=== PATIENT | female | born 1945 | race Caucasian/White ===

== ENCOUNTER 2016-11-24 21:53 | Inpatient (IN) | payer OTHER, MEDICARE ==
[~2016-11-24 21:53] MED LIST: DUONEB 0.5 MG/3 MG NEB ONE; DUONEB 0.5 MG/3 MG ONE
[2016-11-24] MEDS ORDERED: DUONEB 0.5 MG/3 MG NEB ONE (21:57)
[2016-11-24] MEDS ORDERED: NS 100 ML IV 200 ML IV ONE (21:58)
[2016-11-24] MEDS ORDERED: MAGNESIUM SULFATE 50% INJ ONE (21:58)
[2016-11-24] MEDS ORDERED: MORPHINE SULFATE INJ 2 MG IVP ONE (21:58)
[2016-11-24] MEDS ORDERED: MAGNESIUM SULFATE 1 GM/100 mL PREMIX 1 GM/100 ML BAG IV ONE (21:59)
--- NOTE | 2016-11-24 22:04 | DR.GENAD ---
HPI - Complaint/Symptoms Chief Complaint Doctors Comments: Patient came by EMS from another critical access hospital states they picked the patient up in respiratory distress, wheezing and they stopped her because it was closer than [place]. Patient states she has COPD has been wheezing for a while and has home oxygen at 4 liters. States she has been on the ventillator before and she does not know how long ago it was. She denies chest pain but is having SOB, wheezing and problems breating all day. EMS states they gave the patient Solumedrol 125mg and Lasix 40mg IV in route with nebulizer. Patient denies hand or feet swelling. - Nurses notes reviewed Nurses Notes Review: Yes - Source History Provided: Patient, EMS - Mode of Arrival Mode of Arrival: EMS - Timing Came on: Gradually - Duration Duration: Constant How lon Duration: Days - Location Location: diffuse wheezing and SOB - Severity Severity: Severe - Modifying Factors Worsens:: nothing Improves:: nothing PMH - PMH Past Medical History: Anxiety, Diabetes, Dyslipidemia, Hypertension Past Surgical History: Yes Surgical History: Cholecystectomy, Hysterectomy, Ortho Surgery - Social History Do you use any recreational Drugs:: No ROS - Review of Systems Constitutional: No Symptoms Reported, Weakness. negative: See HPI, Chills, Diaphoresis, Fever, Malaise, Irritable, Fatigue, Loss of Appetite, Other Eyes: No Symptoms Reported. negative: See HPI, Eye Pain, Blurred Vision, Tearing, Discharge, Photophobia, Diplopia, Other ENTM: No Symptoms Reported. negative: See HPI, Ear Pain, Ear Discharge, Pulling on Ears, Hearing Loss, Nose Pain, Nose Discharge, Epistaxis, Nose Congestion, Mouth Pain, Mouth Swelling, Loose Teeth, Drooling, Throat Pain, Throat Swelling, Ear Foreign Body Respiratoy: No Symptoms Reported, Non-Productive Cough, Short of Breath, Wheezing. negative: See HPI, Productive Cough, Moist Cough, Dry Cough, Hacking Cough, Barking Cough, Brassy Cough, Orthopnea, Stridor, Hemoptysis, Other Cardiovascular: No Symptoms Reported. negative: See HPI, Chest Pain, Edema, Palpitations, Syncope, Cyanosis, Skin Mottling, Other Gastrointestinal/Abdominal: No Symptoms Reported. negative: See HPI, Abdominal Pain, Constipation, Diarrhea, Nausea, Vomiting, Food Intolerance, Other Genitourinary: No Symptoms Reported Neurological: No Symptoms Reported, Weakness Musculoskeletal: No Symptoms Reported Integumentary: No Symptoms Reported Hematologic/Lymphatic: No Symptoms Reported Endocrine: No Symptoms Reported Psychiatric: No Symptoms Reported PE - Vital Signs Vitals: Temperature 98.7 F Pulse Rate [Left Radial] 115 Pulse Rate 147 Respiratory Rate 24 Blood Pressure [Right Arm] 96/54 Blood Pressure 147/90 O2 Sat by Pulse Oximetry 98 - General Limitations: No Limitations General Appearance: Alert, In Distress (severe distress) - Head Head Exam: Normal Inspection, Atraumatic, Normocephalic - Eyes Eye exam: Normal Appearance, PERRL, EOMI. negative: Scleral Icterus, Conjunctival Injection, Nystagmus, Miosis, Mydrasis, Periorbital Swelling, Periorbital Tenderness, Other - ENT ENT Exam: Normal Exam, Normal Oropharynx, Normal External Ear Exam, Mucous Membranes Moist, TM's Normal Bilaterally TM/Canal Exam: Bilateral Normal Nose Exam: Normal Nose Exam Mouth Exam: Normal Inspection Throat Exam: Normal Inspection - Neck Neck Exam: Normal Inspection, Full ROM, Trachea Midline. negative: Tenderness, Meningismus, Lymphadenopathy, Thyromegaly, Other - Chest Chest Inspection: Normal Inspection, Symmetric Chest Wall Rise - Respiratory Respiratory Exam: Accessory Muscle Use, Prolonged Expiratory Phase, Respiratory Distress Respiratory Exam: Bilateral Wheezing (diffuse wheezing bilaterally), Bilateral Decreased Breath Sounds, Left Rales - Cardiovascular Cardiovascular Exam: Regular Rate, Normal Rhythm, Normal Heart Sounds, Systolic Murmur - Abdominal Exam Abdominal Exam: Normal Inspection, Normal Bowel Sounds, Soft. negative: Distention, Tenderness, Guarding, Rebound, Rigidity, Dimnished Bowel Sounds, Hyperactive Bowel Sounds, Hypoactive Bowel Sounds, Organomegaly, Trauma, Incision, Ascites, Mass, Bruit, Pulsatile Mass, Hernia, Other Abdominal Tenderness: negative: RUQ, RLQ, LUQ, LLQ, Epigastrium, Suprapubic, Diffuse, Mild, Moderate, Severe, Other - Extremities Extremities Exam: Normal Inspection, Full ROM, Normal Capillary Refill. negative: Tenderness, Edema, Joint Swelling, Calf Tenderness, Other - Back Back Exam: Normal Inspection, Full ROM. negative: Tenderness, (R) CVA Tenderness, (L) CVA Tenderness, Muscle Spasm, Paraspinal Tenderness, Vertebral Tenderness, Rashes, (R) Sciatic Notch Tenderness, (L) Sciatic Notch Tendern, (R ) Straight Leg Raise, (L) Straight Leg Raise, Other - Neurologic Neurological Exam: Alert, Oriented X3, CN II-XII Intact, Reflexes Normal. negative: Normal Gait (gait not tested) - Psychiatric Psychiatric Exam: Normal Affect - Skin Skin Exam: Warm, Dry, Intact, Normal Color Course - Reevaluation 1st: Improved - Consultation Called: 00:26 Call Returned: 00:27 (Dr. Fry to admit) - Education/Counseling Education/Counseling: Patient, Family Educated On: Treatment, Diagnosis ROR - Labs Reviewed Laboratory Results Reviewed?: Yes (all labs and x-ray results reviewed and discussed with patient) Result Diagrams: 11/24/16 22:00 11/24/16 22:00 Laboratory: WBC 29.3 X10^3/uL (3.6-10.0) H* 11/24/16 22:00 RBC 4.61 X10^6/uL (3.5-5.4) 11/24/16 22:00 Hgb 12.5 g/dL (12.0-16.0) 11/24/16 22:00 Hct 40.3 % (36.0-47.0) 11/24/16 22:00 MCV 87.5 fL (80.0-100.0) 11/24/16 22:00 MCH 27.2 pg (27.0-34.0) 11/24/16 22:00 MCHC 31.1 g/dL (33.0-35.0) L 11/24/16 22:00 RDW 14.6 % (11.6-16.5) 11/24/16 22:00 Plt Count 310 X10^3/uL (150.0-450.0) 11/24/16 22:00 MPV 10.1 fL (7.4-11.0) 11/24/16 22:00 Neut % 36.2 % (42.0-75.0) L 11/24/16 22:00 Lymph % 55.8 % (21.0-51.0) H 11/24/16 22:00 [place] % 4.0 % (0.0-13.0) 11/24/16 22:00 Eos % 3.2 % (0.9-2.9) H 11/24/16 22:00 Baso % 0.8 % (0.2-1.0) 11/24/16 22:00 Neut # 10.6 x10^3/uL (2.2-4.8) H 11/24/16 22:00 Lymph # 16.4 X10^3/uL (1.3-2.9) H 11/24/16 22:00 [place] # 1.2 x10^3/uL (0.3-0.8) H 11/24/16 22:00 Eos # 0.9 x10^3/uL (0.0-0.2) H 11/24/16 22:00 Baso # 0.2 X10^3/uL (0.0-0.1) H 11/24/16 22:00 Absolute Nucleated RBC 0.0 /100WBC 11/24/16 22:00 INR Target Range - 11/24/16 22:00 INR 0.99 (0.8-1.3) 11/24/16 22:00 PTT 29.5 SECONDS (22.9-36.5) 11/24/16 22:00 PTT Comment - 11/24/16 22:00 Sodium 148 mmol/L (136-145) H 11/24/16 22:00 Corrected Sodium 153 mmol/L (136-145) H 11/24/16 22:00 Potassium 4.5 mmol/L (3.5-5.1) 11/24/16 22:00 Chloride 108 mmol/L (98-107) H 11/24/16 22:00 Carbon Dioxide 27.2 mmol/L (21-32) 11/24/16 22:00 BUN 12 mg/dL (7-18) 11/24/16 22:00 Creatinine 1.34 mg/dL (0.55-1.02) H 11/24/16 22:00 Est GFR (MDRD) Af Amer 50 (>60) L 11/24/16 22:00 Est GFR (MDRD) Non-Af 41 (>60) L 11/24/16 22:00 Glucose 298 mg/dL (65-99) H 11/24/16 22:00 Calcium 9.3 mg/dL (8.5-10.1) 11/24/16 22:00 Corrected Calcium TNP 11/24/16 22:00 Magnesium 2.3 mg/dL (1.7-2.9) 11/24/16 22:00 Total Bilirubin 0.20 mg/dL (0.2-1.0) 11/24/16 22:00 AST 24 Units/L (15-37) 11/24/16 22:00 ALT 28 Units/L (12-78) 11/24/16 22:00 Alkaline Phosphatase 97 Units/L (46-116) 11/24/16 22:00 Creatine Kinase 88 Units/L (26-192) 11/24/16 22:00 CK-MB (CK-2) 1.7 ng/mL (0-4.0) 11/24/16 22:00 CK/CKMB % Calc 1.9 % (<4) 11/24/16 22:00 Troponin I 0.06 ng/mL (0-1.5) 11/24/16 22:00 Total Protein 8.5 g/dL (6.4-8.2) H 11/24/16 22:00 Albumin 3.9 g/dL (3.4-5.0) 11/24/16 22:00 Globulin 4.6 g/dL (2.5-4.5) H 11/24/16 22:00 Albumin/Globulin Ratio 0.8 Ratio (1.1-2.1) L 11/24/16 22:00 Specimen Type Catherized urine 11/24/16 22:44 Urine Color Yellow (YELLOW) 11/24/16 22:44 Urine Appearance Clear (CLEAR) 11/24/16 22:44 Urine pH 6.5 (5.0 - 8.0) 11/24/16 22:44 Ur Specific [place] 1.015 (1.000-1.030) 11/24/16 22:44 Urine Protein 3+ (NEGATIVE) 11/24/16 22:44 Urine Glucose (UA) 2+ (NEGATIVE) 11/24/16 22:44 Urine Ketones Negative (NEGATIVE) 11/24/16 22:44 Urine Occult Blood 1+ (NEGATIVE) 11/24/16 22:44 Urine Nitrite Negative (NEGATIVE) 11/24/16 22:44 Urine Bilirubin Negative (NEGATIVE) 11/24/16 22:44 Urine Urobilinogen Normal (NORMAL) 11/24/16 22:44 Ur Leukocyte Esterase Negative (NEGATIVE) 11/24/16 22:44 Urine RBC 0-3 /HPF (NEGATIVE) 11/24/16 22:44 Urine WBC 0-3 /HPF (NEGATIVE) 11/24/16 22:44 Ur Squamous Epith Cells Rare /HPF (NEGATIVE) 11/24/16 22:44 Urine Bacteria Negative /HPF (NEGATIVE) 11/24/16 22:44 Ur Culture Indicated? No/not indicated 11/24/16 22:44 - XRAY XRAY Interpreted by: Radiologist (CXR: May be congestive heart failure. Coarse interstitial and vasacular markings bilaterally, left greater than right may also be pneumonia) - Diagnosis Discharge Problem: Acute respiratory failure, Acute exacerbation of chronic obstructive pulmonary disease (COPD), Chronic kidney disease, stage 3, Diabetes mellitus type II, uncontrolled, Congestive heart failure, Problable pneumonia - Discharge Plan Disposition: 09 ADMITTED INPATIENT Condition: Stable - Follow ups/Referrals Follow ups/Referrals: CHANDANA PATEL [Primary Care Provider] - 3 days - Instructions
[2016-11-24] MEDS: MAGNESIUM SULFATE 1 GM/100 mL PREMIX 1 GM/100 ML BAG IV SCH ×2 (22:08→23:13)
[2016-11-24 22:30] LABS: BASOPHILS # (AUTO) 0.2 X10^3/uL (0.0-0.1); BASOPHILS % (AUTO) 0.8 % (0.2-1.0); EOSINOPHILS # (AUTO) 0.9 x10^3/uL (0.0-0.2); EOSINOPHILS % (AUTO) 3.2 % (0.9-2.9); HEMATOCRIT 40.3 % (36.0-47.0); HEMOGLOBIN 12.5 g/dL (12.0-16.0); LYMPHOCYTES # (AUTO) 16.4 X10^3/uL (1.3-2.9); LYMPHOCYTES % (AUTO) 55.8 % (21.0-51.0); MEAN CORPUSCULAR HEMOGLOBIN 27.2 pg (27.0-34.0); MEAN CORPUSCULAR HGB CONC 31.1 g/dL (33.0-35.0); MEAN CORPUSCULAR VOLUME 87.5 fL (80.0-100.0); MEAN PLATELET VOLUME 10.1 fL (7.4-11.0); MONOCYTES # (AUTO) 1.2 x10^3/uL (0.3-0.8); NEUTROPHILS # (AUTO) 10.6 x10^3/uL (2.2-4.8); NEUTROPHILS % (AUTO) 36.2 % (42.0-75.0); PLATELET COUNT 310 X10^3/uL (150.0-450.0); RED BLOOD COUNT 4.61 X10^6/uL (3.5-5.4); RED CELL DISTRIBUTION WIDTH 14.6 % (11.6-16.5)
[2016-11-24 22:41] LABS: BLOOD UREA NITROGEN 12 mg/dL (7-18); CALCIUM 9.3 mg/dL (8.5-10.1); CARBON DIOXIDE 27.2 mmol/L (21-32); CHLORIDE 108 mmol/L (98-107); COR NA(FOR HYPERGLY) 153 mmol/L (136-145); CREATININE 1.34 mg/dL (0.55-1.02); GLUCOSE 298 mg/dL (65-99); SODIUM 148 mmol/L (136-145); TROPONIN I 0.06 ng/mL (0-1.5); eGFR BLACK RACES 50 (>60); eGFR NON BLACK RACES 41 (>60)
[2016-11-24 22:42] LABS: WHITE BLOOD COUNT 29.3 X10^3/uL (3.6-10.0)
[2016-11-24 22:45] LABS: ALANINE AMINOTRANSFERASE 28 Units/L (12-78); ALBUMIN 3.9 g/dL (3.4-5.0); ALKALINE PHOSPHATASE 97 Units/L (46-116); ASPARTATE AMINO TRANSFERASE 24 Units/L (15-37); CKMB % 1.9 % (<4); CREATINE KINASE 88 Units/L (26-192); CREATINE KINASE MB 1.7 ng/mL (0-4.0); MAGNESIUM 2.3 mg/dL (1.7-2.9); TOTAL PROTEIN 8.5 g/dL (6.4-8.2)
--- NOTE | 2016-11-24 22:57 | RAD ---
EXAM: Chest X-ray INDICATION: Shortness of breath COMPARISION: No prior TECHNIQUE: Single view FINDINGS: The heart is normal enlarged and there is central vascular congestion. The interstitial markings are prominent bilaterally, left greater than right. No pneumothorax or pleural effusion. The regional s [place] is intact. IMPRESSION: Findings may be secondary to congestive heart failure. The coarse interstitial and vascular markings noted bilaterally, left greater than right may also be secondary to pneumonia. Correlate with clini effie findings. Reported By:
[2016-11-24] MEDS ORDERED: ROCEPHIN VIAL 1 GM ONE (23:08)
[2016-11-24] MEDS ORDERED: NS 100 ML IV + SPIKE MINIBAG* 100 ML IV ONE (23:09)
[2016-11-24 23:24] LABS: BILIRUBIN,URINE NEGATIVE (NEGATIVE); BLOOD/HEMOGLOBIN,URINE 1+ (NEGATIVE); GLUCOSE, URINE 2+ (NEGATIVE); KETONES,URINE NEGATIVE (NEGATIVE); LEUKOCYTE ESTERASE ,URINE NEGATIVE (NEGATIVE); NITRITES,URINE NEGATIVE (NEGATIVE); PH,URINE 6.5 (5.0 - 8.0); PROTEIN,URINE 3+ (NEGATIVE); UROBILINOGEN,URINE NORMAL (NORMAL)
[2016-11-24] MEDS ORDERED: LEVAQUIN PREMIX IV 750 MG 750 MG/150 ML BAG IV SCH (23:45)
[2016-11-24] MEDS ORDERED: ROCEPHIN VIAL 1 GM 1 GM in NS 50 ML IV + SPIKE MINIBAG* 50 ML IV SCH (23:45)
[2016-11-24 23:56] LABS: APPEARANCE,URINE CLEAR (CLEAR); BACTERIA,URINE NEGATIVE /HPF (NEGATIVE); COLOR,URINE YELLOW (YELLOW); RBC,URINE 0-3 /HPF (NEGATIVE); SQUAMOUS EPITHELIAL CELL,UR RARE /HPF (NEGATIVE)
[2016-11-25] MEDS: DUONEB 0.5 MG/3 MG NEB SCH ×6 (00:05→21:06)
[2016-11-25] MEDS ORDERED: LEVAQUIN PREMIX IV 500 MG 500 MG/100 ML BAG IV SCH (01:00)
[2016-11-25 02:21] LABS: ABG BASE EXCESS 2.3 mmol/L (-2.0-2.0); ABG HCO3 27.8 mmol/L (22-26)
[2016-11-25 02:52] VITALS: BMI 27.3
[2016-11-25] MEDS: HumuLIN R SC PRN ×4 (06:04→20:58)
[2016-11-25] MEDS: SOLU-Medrol 40 MG VIAL IVP SCH ×3 (06:53→21:00)
[2016-11-25 08:25] LABS: BASOPHILS # (AUTO) 0.1 X10^3/uL (0.0-0.1); BASOPHILS % (AUTO) 0.4 % (0.2-1.0); HEMATOCRIT 36.5 % (36.0-47.0); HEMOGLOBIN 11.7 g/dL (12.0-16.0); LYMPHOCYTES # (AUTO) 2.2 X10^3/uL (1.3-2.9); LYMPHOCYTES % (AUTO) 11.5 % (21.0-51.0); MEAN CORPUSCULAR HEMOGLOBIN 27.3 pg (27.0-34.0); MEAN CORPUSCULAR HGB CONC 32.1 g/dL (33.0-35.0); MEAN PLATELET VOLUME 9.5 fL (7.4-11.0); MONOCYTES # (AUTO) 0.4 x10^3/uL (0.3-0.8); MONOCYTES % (AUTO) 2.1 % (0.0-13.0); NEUTROPHILS # (AUTO) 16.4 x10^3/uL (2.2-4.8); PLATELET COUNT 186 X10^3/uL (150.0-450.0); RED BLOOD COUNT 4.29 X10^6/uL (3.5-5.4); RED CELL DISTRIBUTION WIDTH 15.1 % (11.6-16.5); WHITE BLOOD COUNT 19.1 X10^3/uL (3.6-10.0)
[2016-11-25] MEDS: ROCEPHIN VIAL 1 GM 1 GM in NS 50 ML IV + SPIKE MINIBAG* 50 ML IV SCH (08:54)
[2016-11-25 08:56] LABS: ALANINE AMINOTRANSFERASE 32 Units/L (12-78); ALBUMIN 3.8 g/dL (3.4-5.0); ALKALINE PHOSPHATASE 58 Units/L (46-116); ASPARTATE AMINO TRANSFERASE 32 Units/L (15-37); BLOOD UREA NITROGEN 18 mg/dL (7-18); CALCIUM 9.4 mg/dL (8.5-10.1); CARBON DIOXIDE 28.9 mmol/L (21-32); CHLORIDE 105 mmol/L (98-107); COR NA(FOR HYPERGLY) 146 mmol/L (136-145); GLUCOSE 191 mg/dL (65-99); SODIUM 144 mmol/L (136-145); eGFR BLACK RACES 57 (>60); eGFR NON BLACK RACES 47 (>60)
[2016-11-25] MEDS: NS 500 ML IV 500 ML IV SCH (08:59)
--- NOTE | 2016-11-25 10:10 | RAD ---
HISTORY: COPD Study: One view chest obtained 8:28 a.m. Comparison: 567 the Findings: The trachea is midline . There is no widening or shift of mediastinum. Cardiac pacer noted overlying the left axilla leads overlie the right atrium right ventricle. The cardiac silhouette appears with in normal limits. The costophrenic angles are sharp and both diaphragms are adequately maintained. T he lungs are adequately aerated. Osseous structures are within normal limits for the patient's age t he left lower lobe infiltrate is slowly resolving. IMPRESSION: 1. Heart normal size slowly resolving left lower lobe infiltrate when compared to previous study. Reported By:
[2016-11-25] MEDS: LOVENOX INJ 30 MG SYR SC SCH (10:51)
[2016-11-25] MEDS: COREG TAB 12.5 MG PO SCH ×2 (10:52→20:57)
[2016-11-25] MEDS: GLUCOPHAGE XR PO SCH ×2 (10:52→20:57)
[2016-11-25] MEDS: ZESTRIL TAB 10 MG PO SCH (10:52)
[2016-11-25] MEDS: NEURONTIN CAP 300 MG PO SCH ×3 (10:52→21:00)
[2016-11-25] MEDS: PAXIL PO SCH (10:52)
[2016-11-25] MEDS: ALDACTONE TAB 25 MG PO SCH (10:52)
[2016-11-25] MEDS ORDERED: SYMBICORT INH 160/4.5 mcg IN SCH (13:00)
--- NOTE | 2016-11-25 16:34 | DR.H&P ---
H&P - History & Physical for Day of: H&P Date: 11/25/16 - Chief Complaint Chief Complaint: RESPIRATORY DISTRESS, WHEEZING - Allergies Allergies/Adverse Reactions: Allergies Allergy/AdvReac Type Severity Reaction Status Date / Time No Known Drug Allergy Allergy Verified 04/12/13 08:36 - History of Present Illness History of Present Illness: THIS IS A 71 YEAR OLD FEMALE, WHO IS A PATIENT OF DR. CHANDANA PATEL, [place], [place]. SHE PRESENTS TO OUR EMERGENCY ROOM, VIA EMS, WITH COMPLAINTS OF COUGH, SHORTNESS OF BREATH, DIFFICULTY BREATHING, AND WHEEZING. PATIENT REPORTS A HISTORY OF COPD. PATIENT HAS HOME OXYGEN AT 4 LITERS AND HAS BEEN ON THE VENTILATOR BEFORE. SHE DENIES CHEST PAIN. SHE REPORTS SYMPTOMS HAVE BEEN WORSENING ALL DAY. PATIENT RECEIVED SOLUMEDROL AND LASIX PER EMS ALONG WITH NEB TREATMENT. ON ARRIVAL TO ER, PATIENT IS NOTED WITH RESPIRATORY DISTRESS WITH ACCESSORY MUSCLE USE AND PROLONGED EXPIRATORY PHASE. O2 SATURATION ON ARRIVAL WAS 79%. ON AUSCULTATION, LUNGS NOTED WITH BILATERAL WHEEZING THROUGHOUT, WITH RALES ON THE LEFT SIDE ALSO. LABS AND XRAY OBTAINED. CBC WNL EXCEPT: WBC 29.3. CMP WNL EXCEPT: SODIUM 148, CHL 108, CREAT 1.34, GFR 41, GLUCOSE 298, TOT PROTEIN 8.5. CHEST XRAY REPORTS: CENTRAL VASCULAR CONGESTION; COARSE INTERSTITIAL AND VASCULAR MARKINGS NOTED BILATERALLY , LEFT GREATER THAN RIGHT MAY ALSO BE SECONDARY TO PNEUMONIA. EKG: SINUS TACHYCARDIA, RATE 144. ABG ABNORMALS: PCO2 46.0, PO2 66.0, HCO3 27.8, FIO2 50.0. WE WILL ADMIT PATIENT TO ICU FOR FURTHER TREATMENT AND EVALUATION. PATIENT WILL BE STARTED ON DUONEBS, SOLUMEDROL, AND IV LEVAQUIN. WE WILL CONTINUE TO MONITOR AND FOLLOW UP IN AM WITH LABS AND CHEST XRAY. - Past Medical History Past Medical History: Anxiety, CHF, COPD, Depression, Diabetes, Dyslipidemia, Hypertension Additional Medical History: Vision Deficit, Chronic Sinusitis, Bronchitis, Pneumonia, Esophageal Disorders, Gallbladder Disease, Diverticulosis, Urinary Tract Infections, Skin Cancer - Past Surgical History Surgical History: Cholecystectomy, Hysterectomy, Ortho Surgery, Other Additional Surgical History: Cataracts, Pacemaker/Defibrillator, EGD with Mackey Dilatation, Hemmorrhoidectomy - Family History Family Medical History: [place], Hypertension - Social History Does patient currently use any type of tobacco product: No Have you used tobacco products in the last 12 months: No Type of Tobacco Use: None Does any household member use tobacco: No Alcohol Use: None Drug Use: None - Medications Home Medications: Albuterol Neb 2.5MG/ 3Ml [ALBUTEROL NEB 2.5MG/ 3ML *] 1 ea IN TID 04/12/13 Alprazolam [XANAX 0.5 MG *] 0.5 mg PO HS 04/12/13 Carvedilol [COREG TAB 12.5 MG *] 12.5 mg PO BID 04/12/13 Lisinopril [ZESTRIL *] 10 mg PO DAILY 04/12/13 Paroxetine HCl [PAXIL 20 MG (generic) *] 20 mg PO DAILY 04/12/13 Simvastatin [ZOCOR 40 MG *] 40 mg PO HS 04/12/13 Spironolactone [ALDACTONE 25 MG *] 25 mg PO DAILY 04/12/13 Gabapentin 1 cap PO TID 11/24/16 Melatonin 3 mg PO HS 11/24/16 Metformin HCl [Glucophage ER 500mg Tab] 1 tab PO BID 11/24/16 Montelukast Sodium 1 tab PO HS 11/24/16 Sennosides-Docusate Sodium [Senna/Docusate Sodium 8.6-50 mg] 1 tab PO HS 11/24 Budesonide-Formoterol [SYMBICORT INH 160-4.5 mcg (10.2 g) *] 2 puff INH BID Tiotropium [place] Monohydrate [SPIRIVA HANDIHALER (30 DOSE) *] 2 puff INH DAILY 11/25/16 - Review of Systems Constitutional: Weakness, Malaise Eyes: No Symptoms Reported. denies: Pain, Vision Change, Conjunctivae Inflammation, Eyelid Inflammation, Redness ENT: No Symptoms Reported. denies: Ear Pain, Nose Pain, Nose Discharge, Nose Congestion, Mouth Swelling, Throat Pain, Throat Swelling Respiratory: Cough, Shortness of Breath, SOB with Excertion, Sputum, Wheezing. denies: Hemoptysis, Pleuritic Pain Cardiovascular: No Symptoms Reported. denies: Chest Pain, Palpitations, Orthopnea, Paroxysmal Noc. Dyspnea, Edema, Light Headedness Gastrointestinal: No Symptoms Reported. denies: Nausea, Vomiting, Abdominal Pain, Diarrhea, Constipation, Hematochezia Genitourinary: No Symptoms Reported. denies: Dysuria, Incontinence, Hematuria, Retention Musculoskeletal: No Symptoms Reported. denies: Shoulder Pain, Arm Pain, Back Pain, Hand Pain, Leg Pain, Foot Pain, Neck Pain Skin: No Symptoms Reported. denies: Rash, Lesions, Bruising, Wound, Ecchymosis Neurological: No Symptoms Reported. denies: Weakness, Numbness, Incoordination , Confusion, Seizures - Physical Exam Vital Signs: Temperature 98.1 F Pulse Rate [Left Radial] 84 Pulse Rate 94 Respiratory Rate 25 Blood Pressure [Right Arm] 145/80 O2 Sat by Pulse Oximetry 96 Oriented: Normal, Time, Person, Place Eyes: Normal. negative: Diplopia, Discharge, Redness, Photophobia Ear: Normal. negative: Swelling, Laceration Nose: Normal. negative: Injected, Discharge, Blood Throat: Red, Dry. negative: Tonsillar Hypertrophy, Exudate Respiratory: Wheezes Throughout, ELLA Rales, LLL Rales Cardiovascular: Normal. negative: Murmur, Edema : Normal. negative: Dysuria, Hematuria, Frequency, Discharge, Bleeding, Auscultation: Bowel Sounds: Normal. negative: Bruit Palpation: Normal. negative: Spleen Enlarged, Liver Enlarged, Mass Pulsatile Tenderness: Normal. negative: Rebound, Guarding, Rigidity Skin: Decreased [place]. negative: Diaphoresis, Wound, Bruising, Ecchymosis Musculoskeletal: Normal Psychiatric: Anxiety Mood Description: Anxious Affect: Anxious Speech Pattern: Clear, Appropriate - Assessment/Plan (1) Acute exacerbation of chronic obstructive pulmonary disease (COPD) Status: Acute Plan: ADMIT PATIENT, START SOLUMEDROL, IV LEVAQUIN, DUONEBS, SUPPLEMENTAL OXGYEN , MONITOR ON CONTINUOUS PULSE OXIMETRY AND TELEMETRY, LABS AND CHEST XRAY IN AM. (2) Acute respiratory failure Qualifiers: Respiratory failure complication: hypoxia and hypercapnia Qualified Code(s) : J96.01 - Acute respiratory failure with hypoxia; J96.02 - Acute respiratory failure with hypercapnia Status: Acute Plan: ABOVE. (3) Chronic kidney disease, stage 3 Status: Chronic (4) Congestive heart failure Qualifiers: Congestive heart failure type: C Congestive heart failure chronicity: C Status: Chronic (5) Diabetes mellitus type II, uncontrolled Qualifiers: Diabetes mellitus complication status: without complication Diabetes mellitus complication detail: D Diabetic retinopathy severity: D Proliferative retinopathy type: P Diabetes mellitus macular edema: D Diabetes mellitus mcc insulin use: without termite control technician use Laterality: L Chronic kidney disease stage: C Qualified Code(s): E11.65 - Type 2 diabetes mellitus with hyperglycemia Status: Chronic
[2016-11-25] MEDS: PROTONIX INJ 40 MG VIAL IVP SCH (18:13)
[2016-11-25 19:25] LABS: CKMB % 2.9 % (<4); CREATINE KINASE MB 10.8 ng/mL (0-4.0)
[2016-11-25 19:28] LABS: TROPONIN I 0.4 ng/mL (0-1.5)
[2016-11-25] MEDS: ZOCOR TAB 40 MG PO SCH (20:57)
[2016-11-25] MEDS: SINGULAIR TAB 10 MG PO SCH (20:57)
[2016-11-25] MEDS: COLACE CAP 100 MG PO SCH (20:57)
[2016-11-25] MEDS: XANAX PO SCH (20:57)
[2016-11-25] MEDS: SENOKOT PO SCH (20:57)
[2016-11-25] MEDS: PATIENT'S HOME MEDICATION RESPIRATORY (Melatonin [Melatonin] 3 MG) PO SCH (20:59)
[2016-11-25] MEDS ORDERED: [UNRECOGNIZED DRUG - OTHER] PO SCH (21:00)
[2016-11-25] MEDS: PEPCID 20 MG IV PREMIX* 20 MG/50 ML BAG IV SCH (21:00)
[2016-11-25] MEDS: PULMICORT NEB TX 0.5 MG NEB SCH (21:06)
[2016-11-25 21:33] LABS: TROPONIN I 0.43 ng/mL (0-1.5)
[2016-11-25 21:40] LABS: CREATINE KINASE MB 10.9 ng/mL (0-4.0)
[2016-11-26] MEDS: DUONEB 0.5 MG/3 MG NEB SCH ×6 (01:03→21:47)
[2016-11-26 01:44] LABS: CKMB % 2.6 % (<4); TROPONIN I 0.38 ng/mL (0-1.5)
[2016-11-26 01:45] LABS: CREATINE KINASE MB 8.3 ng/mL (0-4.0)
[2016-11-26 04:47] LABS: ALANINE AMINOTRANSFERASE 33 Units/L (12-78); ALBUMIN 3.6 g/dL (3.4-5.0); ALKALINE PHOSPHATASE 49 Units/L (46-116); ASPARTATE AMINO TRANSFERASE 38 Units/L (15-37); BLOOD UREA NITROGEN 21 mg/dL (7-18); CALCIUM 9.2 mg/dL (8.5-10.1); CARBON DIOXIDE 27.8 mmol/L (21-32); CHLORIDE 106 mmol/L (98-107); COR NA(FOR HYPERGLY) 144 mmol/L (136-145); CREATININE 0.92 mg/dL (0.55-1.02); GLUCOSE 186 mg/dL (65-99); SODIUM 142 mmol/L (136-145); TOTAL PROTEIN 7.5 g/dL (6.4-8.2); eGFR BLACK RACES > 60 (>60); eGFR NON BLACK RACES > 60 (>60)
[2016-11-26 04:57] LABS: BASOPHILS # (AUTO) 0.1 X10^3/uL (0.0-0.1); BASOPHILS % (AUTO) 0.2 % (0.2-1.0); EOSINOPHILS # (AUTO) 0.1 x10^3/uL (0.0-0.2); EOSINOPHILS % (AUTO) 0.2 % (0.9-2.9); HEMATOCRIT 34.5 % (36.0-47.0); LYMPHOCYTES # (AUTO) 3.4 X10^3/uL (1.3-2.9); LYMPHOCYTES % (AUTO) 12.6 % (21.0-51.0); MEAN CORPUSCULAR HEMOGLOBIN 27.4 pg (27.0-34.0); MEAN CORPUSCULAR HGB CONC 31.8 g/dL (33.0-35.0); MEAN PLATELET VOLUME 10.6 fL (7.4-11.0); MONOCYTES % (AUTO) 3.7 % (0.0-13.0); NEUTROPHILS # (AUTO) 22.5 x10^3/uL (2.2-4.8); NEUTROPHILS % (AUTO) 83.3 % (42.0-75.0); PLATELET COUNT 236 X10^3/uL (150.0-450.0); RED BLOOD COUNT 4.01 X10^6/uL (3.5-5.4); RED CELL DISTRIBUTION WIDTH 14.7 % (11.6-16.5)
[2016-11-26] MEDS: SOLU-Medrol 40 MG VIAL IVP SCH ×3 (05:07→21:08)
[2016-11-26] MEDS: NEURONTIN CAP 300 MG PO SCH ×3 (05:07→21:04)
[2016-11-26] MEDS: HumuLIN R SC PRN ×3 (05:07→16:23)
[2016-11-26 05:43] LABS: BAND NEUTROPHILS % 8 % (0-10)
[2016-11-26 05:44] LABS: PLATELET MORPHOLOGY COMMENT NORMAL (NORMAL)
--- NOTE | 2016-11-26 07:16 | RAD ---
HISTORY: Respiratory distress Study: Chest one view Comparison: November 25, 2016, November 24, 2016, April 12, 2013 Findings: There is a pacemaker present on the left. The heart is within normal limits in size. The tracy are no rmal. The aorta is calcified. The lungs are mildly hyperinflated but free of acute alveolar infiltra julien. Now visualized in the right lung base is a 7.4 millimeter nodule for which further evaluation w ith chest CT is recommended. The remainder of the lung horan are clear. The bony thorax is unremark able. IMPRESSION: Lungs free of acute infiltrates Now visualized in the right lung base is a 7.4 millimeter nodule for which further evaluation with c hest CT is recommended. Reported By:
[2016-11-26] MEDS: PEPCID 20 MG IV PREMIX* 20 MG/50 ML BAG IV SCH ×2 (08:05→21:04)
[2016-11-26] MEDS: LOVENOX INJ 30 MG SYR SC SCH (08:26)
[2016-11-26] MEDS: PROTONIX INJ 40 MG VIAL IVP SCH (08:26)
[2016-11-26] MEDS: ZESTRIL TAB 10 MG PO SCH (08:27)
[2016-11-26] MEDS: GLUCOPHAGE XR PO SCH (08:27)
[2016-11-26] MEDS: PAXIL PO SCH (08:27)
[2016-11-26] MEDS: COREG TAB 12.5 MG PO SCH ×2 (08:27→21:04)
[2016-11-26] MEDS: ALDACTONE TAB 25 MG PO SCH (08:28)
[2016-11-26] MEDS ORDERED: ROCEPHIN VIAL 1 GM ONE (08:33)
[2016-11-26] MEDS ORDERED: NS 50 ML IV 50 ML IV ONE (08:37)
[2016-11-26] MEDS: ROCEPHIN VIAL 1 GM 1 GM in NS 50 ML IV + SPIKE MINIBAG* 50 ML IV SCH (08:43)
[2016-11-26] MEDS: LEVAQUIN PREMIX IV 500 MG 500 MG/100 ML BAG IV SCH (09:25)
[2016-11-26] MEDS: NS 500 ML IV 500 ML IV SCH (09:26)
[2016-11-26] MEDS: PULMICORT NEB TX 0.5 MG NEB SCH ×2 (10:06→21:47)
[2016-11-26] MEDS ORDERED: NS 100 ML IV 100 ML IV ONE (11:36)
--- NOTE | 2016-11-26 13:19 | PCM.PROG ---
Progress Note - Progress Note for Day of Date: 11/26/16 - Subjective Subjective: PATIENT IS SITTING UP IN CHAIR ON MORNING ROUNDS. PATIENT REPORTS FEELING SHORT OF BREATH AND FATIGUED. OXYGEN SATURATIONS 97% ON SUPPLEMENTAL OXYGEN. ON AUSCULTATION, WHEEZING NOTED. CHEST XRAY FROM THIS MORNING REPORTS THAT LUNGS ARE CLEAR AND A 7.4 MM NODULE IS NOTED IN THE RIGHT LUNG BASE WITH RECOMMENDATIONS FOR A CHEST CT. CBC WNL EXCEPT WBC 29.0, HGB/HCT 11.0/34.5. CMP WNL EXCEPT BUN 21, GLUCOSE 186, AST 38. CARDIAC ENZYMES REPORT CREATINE KINASE 316, CK-MB 8.3. PATIENT DENIES CHEST PAIN. WE WILL FOLLOW UP ON LABS IN THE MORNING AND A CHEST CT. - Past Medical Family Social History Past Med/Fam/Surg Hx: No changes since H&P Allergies: Allergies No Known Drug Allergy Allergy (Verified 04/12/13 08:36) - Review of Systems ROS: No change since H&P - Vital Signs and I&O's Vital Signs: Temperature 98.0 F Pulse Rate [Left Radial] 80 Pulse Rate 77 Respiratory Rate 22 Blood Pressure [Right Arm] 134/61 O2 Sat by Pulse Oximetry 95 Intake and Output: Intake & Output 11/24/16 11/25/16 11/26/16 11/27/16 11:59 11:59 11:59 11:59 Intake Total 340 1477 Output Total 550 2500 Balance -210 -1023 - Physical Exam Oriented: Normal, Time, Person, Place Eyes: Normal. negative: Diplopia, Discharge, Redness, Photophobia Ear: Normal. negative: Swelling, Laceration Nose: Normal. negative: Injected, Discharge, Blood Throat: Red, Dry. negative: Tonsillar Hypertrophy, Exudate Cardiovascular: Normal. negative: Murmur, Edema : Normal. negative: Dysuria, Hematuria, Frequency, Discharge, Bleeding, Auscultation: Bowel Sounds: Normal. negative: Bruit Tenderness: Normal. negative: Rebound, Guarding, Rigidity Skin: Decreased Turgur. negative: Diaphoresis, Wound, Bruising, Ecchymosis Musculoskeletal: Normal Psychiatric: Anxiety Mood Description: Anxious Affect: Anxious Speech Pattern: Clear, Appropriate - Laboratory and Diagnostics Result Diagrams: 11/26/16 03:48 11/26/16 03:48 Labs: 11/25/16 00:20 Sputum - Expectorated Sputum Sputum Culture - Preliminary 11/25/16 00:20 Sputum - Expectorated Sputum - Final Laboratory WBC 29.0 X10^3/uL (3.6-10.0) H* 11/26/16 03:48 RBC 4.01 X10^6/uL (3.5-5.4) 11/26/16 03:48 Hgb 11.0 g/dL (12.0-16.0) L 11/26/16 03:48 Hct 34.5 % (36.0-47.0) L 11/26/16 03:48 MCV 86.0 fL (80.0-100.0) 11/26/16 03:48 MCH 27.4 pg (27.0-34.0) 11/26/16 03:48 MCHC 31.8 g/dL (33.0-35.0) L 11/26/16 03:48 RDW 14.7 % (11.6-16.5) 11/26/16 03:48 Plt Count 236 X10^3/uL (150.0-450.0) 11/26/16 03:48 Plt Count Comment Adequate (ADEQUATE) 11/26/16 03:48 MPV 10.6 fL (7.4-11.0) 11/26/16 03:48 Neut % 83.3 % (42.0-75.0) H 11/26/16 03:48 Lymph % 12.6 % (21.0-51.0) L 11/26/16 03:48 Terrell % 3.7 % (0.0-13.0) 11/26/16 03:48 Eos % 0.2 % (0.9-2.9) L 11/26/16 03:48 Baso % 0.2 % (0.2-1.0) 11/26/16 03:48 Neut # 22.5 x10^3/uL (2.2-4.8) H 11/26/16 03:48 Lymph # 3.4 X10^3/uL (1.3-2.9) H 11/26/16 03:48 Terrell # 1.0 x10^3/uL (0.3-0.8) H 11/26/16 03:48 Eos # 0.1 x10^3/uL (0.0-0.2) 11/26/16 03:48 Baso # 0.1 X10^3/uL (0.0-0.1) 11/26/16 03:48 Absolute Nucleated RBC 0.3 /100WBC 11/26/16 03:48 Total Counted 100 11/26/16 03:48 Neutrophils % (Manual) 74 % (39-76) 11/26/16 03:48 Band Neutrophils % 8 % (0-10) 11/26/16 03:48 Lymphocytes % (Manual) 16 % (13-43) 11/26/16 03:48 Monocytes % (Manual) 2 % (4-9) L 11/26/16 03:48 Plt Morphology Comment Normal (NORMAL) 11/26/16 03:48 RBC Morphology Normal (NORMAL) 11/26/16 03:48 INR Target Range - 11/24/16 22:00 INR 0.99 (0.8-1.3) 11/24/16 22:00 PTT 29.5 SECONDS (22.9-36.5) 11/24/16 22:00 PTT Comment - 11/24/16 22:00 Sample Site Lb 11/25/16 02:15 ABG pH 7.390 (7.35-7.45) 11/25/16 02:15 ABG pCO2 46.0 mmHg (35.0-45.0) H 11/25/16 02:15 ABG pO2 66.0 mmHg (80.0-100.0) L 11/25/16 02:15 ABG HCO3 27.8 mmol/L (22-26) H 11/25/16 02:15 ABG O2 Saturation 93.0 % (90-100) 11/25/16 02:15 ABG Base Excess 2.3 mmol/L (-2.0-2.0) H 11/25/16 02:15 [place] Test N/a 11/25/16 02:15 A-a Gradient 233.0 mmHg 11/25/16 02:15 FiO2 50.000 11/25/16 02:15 Blood Gas Comments Halina well ae 11/25/16 02:15 Sodium 142 mmol/L (136-145) 11/26/16 03:48 Corrected Sodium 144 mmol/L (136-145) 11/26/16 03:48 Potassium 4.4 mmol/L (3.5-5.1) 11/26/16 03:48 Chloride 106 mmol/L (98-107) 11/26/16 03:48 Carbon Dioxide 27.8 mmol/L (21-32) 11/26/16 03:48 BUN 21 mg/dL (7-18) H 11/26/16 03:48 Creatinine 0.92 mg/dL (0.55-1.02) 11/26/16 03:48 Est GFR (MDRD) Af Amer > 60 (>60) 11/26/16 03:48 Est GFR (MDRD) Non-Af > 60 (>60) 11/26/16 03:48 Glucose 186 mg/dL (65-99) H 11/26/16 03:48 Calcium 9.2 mg/dL (8.5-10.1) 11/26/16 03:48 Corrected Calcium TNP 11/26/16 03:48 Magnesium 2.3 mg/dL (1.7-2.9) 11/24/16 22:00 Total Bilirubin 0.20 mg/dL (0.2-1.0) 11/26/16 03:48 AST 38 Units/L (15-37) H 11/26/16 03:48 ALT 33 Units/L (12-78) 11/26/16 03:48 Alkaline Phosphatase 49 Units/L (46-116) 11/26/16 03:48 Creatine Kinase 316 Units/L (26-192) H 11/26/16 00:45 CK-MB (CK-2) 8.3 ng/mL (0-4.0) H* 11/26/16 00:45 CK/CKMB % Calc 2.6 % (<4) 11/26/16 00:45 Troponin I 0.38 ng/mL (0-1.5) 11/26/16 00:45 Total Protein 7.5 g/dL (6.4-8.2) 11/26/16 03:48 Albumin 3.6 g/dL (3.4-5.0) 11/26/16 03:48 Globulin 3.9 g/dL (2.5-4.5) 11/26/16 03:48 Albumin/Globulin Ratio 0.9 Ratio (1.1-2.1) L 11/26/16 03:48 Specimen Type Catherized urine 11/24/16 22:44 Urine Color Yellow (YELLOW) 11/24/16 22:44 Urine Appearance Clear (CLEAR) 11/24/16 22:44 Urine pH 6.5 (5.0 - 8.0) 11/24/16 22:44 Ur Specific [place] 1.015 (1.000-1.030) 11/24/16 22:44 Urine Protein 3+ (NEGATIVE) 11/24/16 22:44 Urine Glucose (UA) 2+ (NEGATIVE) 11/24/16 22:44 Urine Ketones Negative (NEGATIVE) 11/24/16 22:44 Urine Occult Blood 1+ (NEGATIVE) 11/24/16 22:44 Urine Nitrite Negative (NEGATIVE) 11/24/16 22:44 Urine Bilirubin Negative (NEGATIVE) 11/24/16 22:44 Urine Urobilinogen Normal (NORMAL) 11/24/16 22:44 Ur Leukocyte Esterase Negative (NEGATIVE) 11/24/16 22:44 Urine RBC 0-3 /HPF (NEGATIVE) 11/24/16 22:44 Urine WBC 0-3 /HPF (NEGATIVE) 11/24/16 22:44 Ur Squamous Epith Cells Rare /HPF (NEGATIVE) 11/24/16 22:44 Urine Bacteria Negative /HPF (NEGATIVE) 11/24/16 22:44 Ur Culture Indicated? No/not indicated 11/24/16 22:44 - Plan (1) Acute exacerbation of chronic obstructive pulmonary disease (COPD) Status: Acute Plan: CONTINUE SOLUMEDROL, IV LEVAQUIN, DUONEBS, SUPPLEMENTAL OXGYEN, MONITOR ON CONTINUOUS PULSE OXIMETRY AND TELEMETRY, LABS AND CHEST XRAY IN AM. (2) Acute respiratory failure Status: Acute Qualifiers: Respiratory failure complication: hypoxia and hypercapnia Qualified Code(s) : J96.01 - Acute respiratory failure with hypoxia; J96.02 - Acute respiratory failure with hypercapnia Plan: ABOVE. (3) Chronic kidney disease, stage 3 Status: Chronic (4) Congestive heart failure Status: Chronic Qualifiers: Congestive heart failure type: C Congestive heart failure chronicity: C (5) Diabetes mellitus type II, uncontrolled Status: Chronic Qualifiers: Diabetes mellitus complication status: without complication Diabetes mellitus complication detail: D Diabetic retinopathy severity: D Proliferative retinopathy type: P Diabetes mellitus macular edema: D Diabetes mellitus lead systems analyst insulin use: without lead systems analyst use Laterality: L Chronic kidney disease stage: C Qualified Code(s): E11.65 - Type 2 diabetes mellitus with hyperglycemia
--- NOTE | 2016-11-26 13:39 | CT ---
HISTORY: Lung nodule Study: CT chest with con Comparison: Plain chest x-ray same date Technique: Axial post-contrast images with coronal and sagittal reformats. Dose reduction procedures were used with MA/kv adjusted for body size. Findings: Examination of the mediastinum demonstrated no evidence for mediastinal masses, enlarged adenopathy, or hilar adenopathy. No pleural effusions are identified. No chest wall or axillary abnormality is identified. Those portions of the upper abdominal organs visualized were within normal limits. [place] of the lung horan demonstrated mild hyperinflation to be present. Best visualized on series 5 axial image 33 is an irregular 8.2 millimeter pulmonary nodule suspicious for primary lung neoplas m. This is not visible even in retrospect on the recent plain film. Visible on series 5 axial image 37 in the right upper lobe is a 5 millimeter right upper lobe pulmonary nodule also not visible on p russ film. In the right lower lobe there is a 1.2 by 7.5 centimeter nodule accounting for the nodula r density visible in the right lung base on plain film. No other definite nodules are identified. PE T-CT is recommended for evaluation of the irregular right upper lobe pulmonary nodule and a larger r ight lower lobe pulmonary nodule. There is some nonspecific ground-glass infiltrate in the left uppe r lobe and left lower lobe likely infectious or inflammatory in origin. There is a small focus of co nsolidation in the lingular segment of the left upper lobe likely also pneumonia. IMPRESSION: Irregular 8.2 millimeter pulmonary nodule in the right upper lobe suspicious for primary lung neopla sm. This is not visible on the plain film. 7.5 by 12 millimeter right lower lobe pulmonary nodule accounting for the nodule noted on the recent plain film this could be granulomatous or metastatic in origin. 5 millimeter right upper lobe pulmonary nodule which could be granulomatous or metastatic in origin. Subtle ground-glass left upper and left lower lobe infiltrates likely pneumonia Small area of consolidation in the lingula also likely pneumonia Reported By:
[2016-11-26] MEDS ORDERED: SNACK - Diabetic Appropriate PO SCH (20:00)
[2016-11-26] MEDS: COLACE CAP 100 MG PO SCH (21:03)
[2016-11-26] MEDS: SINGULAIR TAB 10 MG PO SCH (21:03)
[2016-11-26] MEDS: ZOCOR TAB 40 MG PO SCH (21:03)
[2016-11-26] MEDS: XANAX PO SCH (21:04)
[2016-11-26] MEDS: SENOKOT PO SCH (21:04)
[2016-11-26] MEDS: PATIENT'S HOME MEDICATION RESPIRATORY (Melatonin [Melatonin] 3 MG) PO SCH (21:05)
[2016-11-27] MEDS: DUONEB 0.5 MG/3 MG NEB SCH ×6 (01:10→21:54)
[2016-11-27 05:24] LABS: ALANINE AMINOTRANSFERASE 31 Units/L (12-78); ALBUMIN 3.2 g/dL (3.4-5.0); ALKALINE PHOSPHATASE 50 Units/L (46-116); ASPARTATE AMINO TRANSFERASE 24 Units/L (15-37); BLOOD UREA NITROGEN 21 mg/dL (7-18); CALCIUM 8.9 mg/dL (8.5-10.1); CARBON DIOXIDE 25.7 mmol/L (21-32); CHLORIDE 106 mmol/L (98-107); COR CA(FOR HYPOALB) 9.5 mg/dL (8.5-10.1); COR NA(FOR HYPERGLY) 144 mmol/L (136-145); CREATININE 0.96 mg/dL (0.55-1.02); GLUCOSE 208 mg/dL (65-99); SODIUM 141 mmol/L (136-145); eGFR BLACK RACES > 60 (>60); eGFR NON BLACK RACES > 60 (>60)
[2016-11-27 05:30] LABS: BASOPHILS % (AUTO) 0.2 % (0.2-1.0); HEMATOCRIT 33.1 % (36.0-47.0); HEMOGLOBIN 10.7 g/dL (12.0-16.0); LYMPHOCYTES # (AUTO) 2.2 X10^3/uL (1.3-2.9); LYMPHOCYTES % (AUTO) 9.9 % (21.0-51.0); MEAN CORPUSCULAR HEMOGLOBIN 27.3 pg (27.0-34.0); MEAN CORPUSCULAR HGB CONC 32.4 g/dL (33.0-35.0); MEAN CORPUSCULAR VOLUME 84.5 fL (80.0-100.0); MEAN PLATELET VOLUME 10.1 fL (7.4-11.0); MONOCYTES # (AUTO) 0.9 x10^3/uL (0.3-0.8); MONOCYTES % (AUTO) 3.8 % (0.0-13.0); NEUTROPHILS # (AUTO) 19.1 x10^3/uL (2.2-4.8); NEUTROPHILS % (AUTO) 86.1 % (42.0-75.0); PLATELET COUNT 217 X10^3/uL (150.0-450.0); RED BLOOD COUNT 3.92 X10^6/uL (3.5-5.4); RED CELL DISTRIBUTION WIDTH 14.4 % (11.6-16.5)
[2016-11-27 05:32] LABS: WHITE BLOOD COUNT 22.2 X10^3/uL (3.6-10.0)
[2016-11-27] MEDS: SOLU-Medrol 40 MG VIAL IVP SCH ×3 (05:34→21:31)
[2016-11-27] MEDS: NEURONTIN CAP 300 MG PO SCH ×3 (05:34→21:18)
[2016-11-27] MEDS: HumuLIN R SC PRN ×4 (06:13→21:19)
--- NOTE | 2016-11-27 06:51 | RAD ---
HISTORY: COPD, respiratory failure Study: Chest one view Comparison: November 26, 2016 plain film and chest CT Findings: There is a pacemaker present on the left. The heart is within normal limits in size. The tracy are no rmal. The aorta is calcified. The lungs are hyperinflated but free of acute alveolar infiltrates. No change right lower lobe lung nodule which was visualized on the recent chest CT. The right upper lo be irregular nodule noted on chest CT is not visible on plain film. IMPRESSION: No acute infiltrates No change right lower lobe nodule The irregular nodule identified on CT in the right upper lobe is not visible on plain film. Reported By:
[2016-11-27] MEDS: PEPCID 20 MG IV PREMIX* 20 MG/50 ML BAG IV SCH ×2 (07:59→21:19)
[2016-11-27] MEDS: PROTONIX INJ 40 MG VIAL IVP SCH (08:03)
[2016-11-27] MEDS: ZESTRIL TAB 10 MG PO SCH (08:04)
[2016-11-27] MEDS: LOVENOX INJ 30 MG SYR SC SCH (08:04)
[2016-11-27] MEDS: PAXIL PO SCH (08:05)
[2016-11-27] MEDS: ALDACTONE TAB 25 MG PO SCH (08:05)
[2016-11-27] MEDS: NS 500 ML IV 500 ML IV SCH (08:11)
[2016-11-27] MEDS: COREG TAB 12.5 MG PO SCH ×2 (08:11→21:18)
[2016-11-27] MEDS: ROCEPHIN VIAL 1 GM 1 GM in NS 50 ML IV + SPIKE MINIBAG* 50 ML IV SCH (08:35)
[2016-11-27] MEDS: PULMICORT NEB TX 0.5 MG NEB SCH ×2 (08:46→21:54)
--- NOTE | 2016-11-27 10:56 | PCM.PROG ---
Progress Note - Progress Note for Day of Date: 11/27/16 - Subjective Subjective: PATIENT TAKING BREATHING TREATMENT UPON ROUNDS. PATIENT WITH PLEASANT AFFECT AND IS NOTED WITH SHORTNESS OF BREATH ON EXERTION. OXYGEN SATURATIONS 97% ON SUPPLEMENTAL OXYGEN. SHE CONTINUES ON AGGRESSIVE NEB TREATMENTS, SUPPLEMENTAL OXYGEN, SOLUMEDROL, IV LEVAQUIN, IV ROCEPHIN FOR ACUTE RESPIRATORY FAILURE AND COPD EXACERBATION. PATIENT IS A FORMER SMOKER. A CT WAS OBTAINED YESTERDAY AND REPORTS AN IRREGULAR 8.2MM PULMONARY NODULE IN THE RIGHT UPPER LOBE SUSPICIOUS FOR PRIMARY LUNG NEOPLASM; 7.5 BY 12MM RIGHT LOWER LOBE PULMONARY NODULE COUGH BE GRANULOMATOUS OR METASTATIC IN ORIGIN; 5MM RIGHT UPPER LOBE PULMONARY NODULE WHICH COULD BE GRANULOMATOUS OR METASTATIC IN ORIGIN. WE DISCUSS REPORT WITH PATIENT AND . REPORTS SHE IS FOLLOWED BY DR. MAGAÑA, DOOR TO DOOR SALES REPRESENTATIVE AND HAS HAD CT'S OF HER CHEST IN THE PAST THAT REPORTED SCAR TISSUE. OUR PLAN IS TO HAVE PATIENT FOLLOW UP WITH DR. MAGAÑA ON DISCHARGE FOR FURTHER EVALUATION. ON AUSCULTATION, WHEEZING CONTINUES THROUGHOUT. CBC WNL EXCEPT WBC 22.2, HGB/HCT 10.7/33.1. CMP WNL EXCEPT BUN 21, GLUCOSE 208, ALBUMIN 3.2. WE WILL FOLLOW UP WITH PATIENT IN AM WITH LABS AND CHEST XRAY. PLANS ARE TO DISCHARGE IN AM, PROVIDING PATIENT IS STABLE. - Past Medical Family Social History Past Med/Fam/Surg Hx: No changes since H&P Allergies: Allergies No Known Drug Allergy Allergy (Verified 04/12/13 08:36) - Review of Systems ROS: No change since H&P - Vital Signs and I&O's Vital Signs: Temperature 97.1 F Pulse Rate [Left Radial] 91 Pulse Rate 83 Respiratory Rate 23 Blood Pressure [Right Arm] 150/74 O2 Sat by Pulse Oximetry 95 Intake and Output: Intake & Output 11/24/16 11/25/16 11/26/16 11/27/16 11:59 11:59 11:59 11:59 Intake Total 340 1477 1637 Output Total 550 2500 1100 Balance -210 1027 537 - Physical Exam Oriented: Normal, Time, Person, Place Eyes: Normal. negative: Diplopia, Discharge, Redness, Photophobia Ear: Normal. negative: Swelling, Laceration Nose: Normal. negative: Injected, Discharge, Blood Throat: Red, Dry. negative: Tonsillar Hypertrophy, Exudate Respiratory: Generalized, Wheezes Cardiovascular: Normal. negative: Murmur, Edema : Normal. negative: Dysuria, Hematuria, Frequency, Discharge, Bleeding, Auscultation: Bowel Sounds: Normal. negative: Bruit Palpation: Normal. negative: Spleen Enlarged, Liver Enlarged, Mass Pulsatile Tenderness: Normal. negative: Rebound, Guarding, Rigidity Skin: Decreased Turgur. negative: Diaphoresis, Wound, Bruising, Ecchymosis Musculoskeletal: Normal Psychiatric: Normal Mood Description: Calm, Appropriate Affect: Normal Speech Pattern: Clear, Appropriate - Laboratory and Diagnostics Result Diagrams: 11/27/16 03:40 11/27/16 03:40 Labs: 11/25/16 00:20 Sputum - Expectorated Sputum Sputum Culture - Final Kanaia Salvadori 11/25/16 00:20 Sputum - Expectorated Sputum - Final Laboratory WBC 22.2 X10^3/uL (3.6-10.0) H* 11/27/16 03:40 RBC 3.92 X10^6/uL (3.5-5.4) 11/27/16 03:40 Hgb 10.7 g/dL (12.0-16.0) L 11/27/16 03:40 Hct 33.1 % (36.0-47.0) L 11/27/16 03:40 MCV 84.5 fL (80.0-100.0) 11/27/16 03:40 MCH 27.3 pg (27.0-34.0) 11/27/16 03:40 MCHC 32.4 g/dL (33.0-35.0) L 11/27/16 03:40 RDW 14.4 % (11.6-16.5) 11/27/16 03:40 Plt Count 217 X10^3/uL (150.0-450.0) 11/27/16 03:40 Plt Count Comment Adequate (ADEQUATE) 11/26/16 03:48 MPV 10.1 fL (7.4-11.0) 11/27/16 03:40 Neut % 86.1 % (42.0-75.0) H 11/27/16 03:40 Lymph % 9.9 % (21.0-51.0) L 11/27/16 03:40 Jerome % 3.8 % (0.0-13.0) 11/27/16 03:40 Eos % 0.0 % (0.9-2.9) L 11/27/16 03:40 Baso % 0.2 % (0.2-1.0) 11/27/16 03:40 Neut # 19.1 x10^3/uL (2.2-4.8) H 11/27/16 03:40 Lymph # 2.2 X10^3/uL (1.3-2.9) 11/27/16 03:40 Jerome # 0.9 x10^3/uL (0.3-0.8) H 11/27/16 03:40 Eos # 0.0 x10^3/uL (0.0-0.2) 11/27/16 03:40 Baso # 0.0 X10^3/uL (0.0-0.1) 11/27/16 03:40 Absolute Nucleated RBC 0.0 /100WBC 11/27/16 03:40 Total Counted 100 11/26/16 03:48 Neutrophils % (Manual) 74 % (39-76) 11/26/16 03:48 Band Neutrophils % 8 % (0-10) 11/26/16 03:48 Lymphocytes % (Manual) 16 % (13-43) 11/26/16 03:48 Monocytes % (Manual) 2 % (4-9) L 11/26/16 03:48 Plt Morphology Comment Normal (NORMAL) 11/26/16 03:48 RBC Morphology Normal (NORMAL) 11/26/16 03:48 INR Target Range - 11/24/16 22:00 INR 0.99 (0.8-1.3) 11/24/16 22:00 PTT 29.5 SECONDS (22.9-36.5) 11/24/16 22:00 PTT Comment - 11/24/16 22:00 Sample Site Lb 11/25/16 02:15 ABG pH 7.390 (7.35-7.45) 11/25/16 02:15 ABG pCO2 46.0 mmHg (35.0-45.0) H 11/25/16 02:15 ABG pO2 66.0 mmHg (80.0-100.0) L 11/25/16 02:15 ABG HCO3 27.8 mmol/L (22-26) H 11/25/16 02:15 ABG O2 Saturation 93.0 % (90-100) 11/25/16 02:15 ABG Base Excess 2.3 mmol/L (-2.0-2.0) H 11/25/16 02:15 [place] Test N/a 11/25/16 02:15 A-a Gradient 233.0 mmHg 11/25/16 02:15 FiO2 50.000 11/25/16 02:15 Blood Gas Comments Halina well ae 11/25/16 02:15 Sodium 141 mmol/L (136-145) 11/27/16 03:40 Corrected Sodium 144 mmol/L (136-145) 11/27/16 03:40 Potassium 4.1 mmol/L (3.5-5.1) 11/27/16 03:40 Chloride 106 mmol/L (98-107) 11/27/16 03:40 Carbon Dioxide 25.7 mmol/L (21-32) 11/27/16 03:40 BUN 21 mg/dL (7-18) H 11/27/16 03:40 Creatinine 0.96 mg/dL (0.55-1.02) 11/27/16 03:40 Est GFR (MDRD) Af Amer > 60 (>60) 11/27/16 03:40 Est GFR (MDRD) Non-Af > 60 (>60) 11/27/16 03:40 Glucose 208 mg/dL (65-99) H 11/27/16 03:40 Calcium 8.9 mg/dL (8.5-10.1) 11/27/16 03:40 Corrected Calcium 9.5 mg/dL (8.5-10.1) 11/27/16 03:40 Magnesium 2.3 mg/dL (1.7-2.9) 11/24/16 22:00 Total Bilirubin 0.40 mg/dL (0.2-1.0) 11/27/16 03:40 AST 24 Units/L (15-37) 11/27/16 03:40 ALT 31 Units/L (12-78) 11/27/16 03:40 Alkaline Phosphatase 50 Units/L (46-116) 11/27/16 03:40 Creatine Kinase 316 Units/L (26-192) H 11/26/16 00:45 CK-MB (CK-2) 8.3 ng/mL (0-4.0) H* 11/26/16 00:45 CK/CKMB % Calc 2.6 % (<4) 11/26/16 00:45 Troponin I 0.38 ng/mL (0-1.5) 11/26/16 00:45 Total Protein 7.0 g/dL (6.4-8.2) 11/27/16 03:40 Albumin 3.2 g/dL (3.4-5.0) L 11/27/16 03:40 Globulin 3.8 g/dL (2.5-4.5) 11/27/16 03:40 Albumin/Globulin Ratio 0.8 Ratio (1.1-2.1) L 11/27/16 03:40 Specimen Type Catherized urine 11/24/16 22:44 Urine Color Yellow (YELLOW) 11/24/16 22:44 Urine Appearance Clear (CLEAR) 11/24/16 22:44 Urine pH 6.5 (5.0 - 8.0) 11/24/16 22:44 Ur Specific [place] 1.015 (1.000-1.030) 11/24/16 22:44 Urine Protein 3+ (NEGATIVE) 11/24/16 22:44 Urine Glucose (UA) 2+ (NEGATIVE) 11/24/16 22:44 Urine Ketones Negative (NEGATIVE) 11/24/16 22:44 Urine Occult Blood 1+ (NEGATIVE) 11/24/16 22:44 Urine Nitrite Negative (NEGATIVE) 11/24/16 22:44 Urine Bilirubin Negative (NEGATIVE) 11/24/16 22:44 Urine Urobilinogen Normal (NORMAL) 11/24/16 22:44 Ur Leukocyte Esterase Negative (NEGATIVE) 11/24/16 22:44 Urine RBC 0-3 /HPF (NEGATIVE) 11/24/16 22:44 Urine WBC 0-3 /HPF (NEGATIVE) 11/24/16 22:44 Ur Squamous Epith Cells Rare /HPF (NEGATIVE) 11/24/16 22:44 Urine Bacteria Negative /HPF (NEGATIVE) 11/24/16 22:44 Ur Culture Indicated? No/not indicated 11/24/16 22:44 - Plan (1) Acute exacerbation of chronic obstructive pulmonary disease (COPD) Status: Acute Plan: DECREASE SOLUMEDROL, CONTINUE IV LEVAQUIN, DUONEBS, SUPPLEMENTAL OXGYEN, MONITOR ON CONTINUOUS PULSE OXIMETRY AND TELEMETRY, LABS AND CHEST XRAY IN AM. (2) Pulmonary nodules Status: Acute Plan: FOLLOW UP WITH GÓMEZ BUCHANAN, DOOR TO DOOR SALES REPRESENTATIVE ON DISCHARGE. (3) Acute respiratory failure Status: Acute Qualifiers: Respiratory failure complication: hypoxia and hypercapnia Qualified Code(s) : J96.01 - Acute respiratory failure with hypoxia; J96.02 - Acute respiratory failure with hypercapnia Plan: ABOVE. (4) Chronic kidney disease, stage 3 Status: Chronic (5) Congestive heart failure Status: Chronic Qualifiers: Congestive heart failure type: C Congestive heart failure chronicity: C (6) Diabetes mellitus type II, uncontrolled Status: Chronic Qualifiers: Diabetes mellitus complication status: without complication Diabetes mellitus complication detail: D Diabetic retinopathy severity: D Proliferative retinopathy type: P Diabetes mellitus macular edema: D Diabetes mellitus terminal clerk insulin use: without care home use Laterality: L Chronic kidney disease stage: C Qualified Code(s): E11.65 - Type 2 diabetes mellitus with hyperglycemia
[2016-11-27] MEDS: SENOKOT PO SCH (21:18)
[2016-11-27] MEDS: COLACE CAP 100 MG PO SCH (21:18)
[2016-11-27] MEDS: ZOCOR TAB 40 MG PO SCH (21:18)
[2016-11-27] MEDS: SINGULAIR TAB 10 MG PO SCH (21:18)
[2016-11-27] MEDS: XANAX PO SCH (21:18)
[2016-11-28] MEDS: DUONEB 0.5 MG/3 MG NEB SCH ×5 (01:05→13:54)
[2016-11-28 04:04] LABS: BASOPHILS % (AUTO) 0.1 % (0.2-1.0); HEMATOCRIT 33.8 % (36.0-47.0); LYMPHOCYTES # (AUTO) 2.1 X10^3/uL (1.3-2.9); LYMPHOCYTES % (AUTO) 11.6 % (21.0-51.0); MEAN CORPUSCULAR HEMOGLOBIN 27.3 pg (27.0-34.0); MEAN CORPUSCULAR HGB CONC 32.6 g/dL (33.0-35.0); MEAN CORPUSCULAR VOLUME 83.7 fL (80.0-100.0); MEAN PLATELET VOLUME 9.9 fL (7.4-11.0); MONOCYTES # (AUTO) 0.9 x10^3/uL (0.3-0.8); MONOCYTES % (AUTO) 5.1 % (0.0-13.0); NEUTROPHILS # (AUTO) 15.3 x10^3/uL (2.2-4.8); NEUTROPHILS % (AUTO) 83.2 % (42.0-75.0); PLATELET COUNT 207 X10^3/uL (150.0-450.0); RED BLOOD COUNT 4.04 X10^6/uL (3.5-5.4); RED CELL DISTRIBUTION WIDTH 14.6 % (11.6-16.5); WHITE BLOOD COUNT 18.4 X10^3/uL (3.6-10.0)
[2016-11-28 04:18] LABS: ALBUMIN 3.2 g/dL (3.4-5.0); ALKALINE PHOSPHATASE 51 Units/L (46-116); ASPARTATE AMINO TRANSFERASE 25 Units/L (15-37); BLOOD UREA NITROGEN 22 mg/dL (7-18); CALCIUM 8.7 mg/dL (8.5-10.1); CARBON DIOXIDE 26.6 mmol/L (21-32); COR CA(FOR HYPOALB) 9.3 mg/dL (8.5-10.1); GLUCOSE 166 mg/dL (65-99); TOTAL PROTEIN 6.9 g/dL (6.4-8.2); eGFR BLACK RACES > 60 (>60); eGFR NON BLACK RACES > 60 (>60)
[2016-11-28 04:45] LABS: ALANINE AMINOTRANSFERASE 45 Units/L (12-78)
[2016-11-28 05:09] LABS: CHLORIDE 107 mmol/L (98-107); COR NA(FOR HYPERGLY) 145 mmol/L (136-145); SODIUM 143 mmol/L (136-145)
[2016-11-28] MEDS: PATIENT'S HOME MEDICATION RESPIRATORY (Melatonin [Melatonin] 3 MG) PO SCH (05:36)
[2016-11-28] MEDS: HumuLIN R SC PRN (06:04)
[2016-11-28] MEDS: NEURONTIN CAP 300 MG PO SCH ×2 (06:05→14:14)
[2016-11-28] MEDS: SOLU-Medrol 40 MG VIAL IVP SCH ×2 (06:05→13:38)
--- NOTE | 2016-11-28 06:33 | RAD ---
HISTORY: Respiratory distress, shortness of breath Study: Single-view chest Comparison: November 27, 2016 Findings: Cardiac monitoring electrodes are noted on the chest. Left-sided pacemaker/defibrillator is present with intact leads. Trachea is midline. The heart size is normal. There is hyperinflation of the lung s with increased interstitial markings bilaterally. In the appropriate clinical setting findings may indicate COPD. Small noncalcified nodules are present involving right upper and right lower lobe re gions. These have been recently evaluated by CT. No apparent nodules are seen on the left. No eviden ce of pleural fluid or pneumothorax is seen. Osseous structures display no acute abnormality. IMPRESSION: Hyperinflation of the lungs with increased interstitial markings. In the appropriate clinical settin g findings may indicate COPD. Right-sided lung nodules are again seen. No evidence of infiltrate, CH F, pleural fluid or pneumothorax is seen. Reported By:
[2016-11-28] MEDS: GLUCOPHAGE XR PO SCH (08:37)
[2016-11-28] MEDS: PULMICORT NEB TX 0.5 MG NEB SCH (08:56)
[2016-11-28] MEDS: ZESTRIL TAB 10 MG PO SCH (08:57)
[2016-11-28] MEDS: COREG TAB 12.5 MG PO SCH (08:57)
[2016-11-28] MEDS: LEVAQUIN PREMIX IV 500 MG 500 MG/100 ML BAG IV SCH (08:57)
[2016-11-28] MEDS: PEPCID 20 MG IV PREMIX* 20 MG/50 ML BAG IV SCH (08:57)
[2016-11-28] MEDS: PAXIL PO SCH (08:57)
[2016-11-28] MEDS: ROCEPHIN VIAL 1 GM 1 GM in NS 50 ML IV + SPIKE MINIBAG* 50 ML IV SCH (08:57)
[2016-11-28] MEDS: ALDACTONE TAB 25 MG PO SCH (09:05)
[2016-11-28] MEDS: LOVENOX INJ 30 MG SYR SC SCH (09:06)
[2016-11-28] MEDS: PROTONIX INJ 40 MG VIAL IVP SCH (09:07)
[2016-11-28] MEDS: NS 500 ML IV 500 ML IV SCH (12:58)
[2016-11-28 14:14] VITALS: BP 146/66
== END 2016-11-28 14:45 | disposition home or self-care (01) | DRG 190 ==
LOC: ER 21:53 → ICU 11-25 00:06
PROVIDERS: ADMIT Internal Medicine; ATTEND Internal Medicine
PROC: 0DJ08ZZ Inspection of Upper Intestinal Tract, Via Natural or Artificial Opening Endoscopic (ICD-10-PCS; principal; 2016-11-28)
PROC: 0D757DZ Dilation of Esophagus with Intraluminal Device, Via Natural or Artificial Opening (ICD-10-PCS; 2016-11-28)
DX: J44.1 Chronic obstructive pulmonary disease with (acute) exacerbation (principal); J96.01 Acute respiratory failure with hypoxia; J96.02 Acute respiratory failure with hypercapnia; N18.3 Chronic kidney disease, stage 3 (moderate); R06.09 Other forms of dyspnea; R06.02 Shortness of breath; E11.65 Type 2 diabetes mellitus with hyperglycemia; E78.2 Mixed hyperlipidemia; I12.9 Hypertensive chronic kidney disease with stage 1 through stage 4 chronic kidney disease, or unspecified chronic kidney disease; F41.8 Other specified anxiety disorders; N17.8 Other acute kidney failure; I50.9 Heart failure, unspecified; Z99.81 Dependence on supplemental oxygen; R13.11 Dysphagia, oral phase; K21.9 Gastro-esophageal reflux disease without esophagitis; B37.81 Candidal esophagitis; K22.2 Esophageal obstruction; K25.9 Gastric ulcer, unspecified as acute or chronic, without hemorrhage or perforation; K29.00 Acute gastritis without bleeding
CPT/HCPCS: 36415; 36600; 51702; 71010; 71260; 80053; 81001; 82550; 82553; 82803; 83735; 84484; 85025; 85610; 85730; 87040; 87070; 87077; 87086; 87186; 87205; 93005; 93010; 94640; 96365; 96367; 96374; 96375; 99284; 99285; A4216; A4222; C9113; S0028; J0696; J1650; J1815; J1956; J2920; J3475; J7620; J7626

== ENCOUNTER 2016-11-29 11:03 | Day surgery (SDC) | payer OTHER, MEDICARE ==
[2016-11-29] MEDS ORDERED: D5 LR 1000 ML 1,000 ML IV ONE (11:35)
[2016-11-29] MEDS ORDERED: DIPRIVAN VIAL 20 ML ONE (12:22)
[2016-11-29 16:45] VITALS: BP 115/62
== END 2016-11-29 15:05 | disposition home or self-care (01) ==
LOC: SURG1 11:03
PROVIDERS: ATTEND Internal Medicine Gastroenterology
PROC: 0DB88ZX Excision of Small Intestine, Via Natural or Artificial Opening Endoscopic, Diagnostic (ICD-10-PCS; principal; 2016-11-29 14:45)
PROC: 0DB68ZX Excision of Stomach, Via Natural or Artificial Opening Endoscopic, Diagnostic (ICD-10-PCS; principal; 2016-11-29 14:45)
PROC: 0D757ZZ Dilation of Esophagus, Via Natural or Artificial Opening (ICD-10-PCS; principal; 2016-11-29 14:45)
PROC: 0DJ08ZZ Inspection of Upper Intestinal Tract, Via Natural or Artificial Opening Endoscopic (ICD-10-PCS; principal; 2016-11-29 14:45)
DX: R13.19 Other dysphagia (principal); K21.9 Gastro-esophageal reflux disease without esophagitis; B37.81 Candidal esophagitis; K22.2 Esophageal obstruction; K25.9 Gastric ulcer, unspecified as acute or chronic, without hemorrhage or perforation; K29.60 Other gastritis without bleeding
CPT/HCPCS: 99100; A4217; J3490; J7120

== ENCOUNTER 2017-02-07 18:06 | Inpatient (IN) | payer OTHER, MEDICARE ==
[2017-02-07] MEDS ORDERED: SOLU-Medrol 125 MG VIAL ONE (18:11)
[2017-02-07] MEDS ORDERED: DUONEB 0.5 MG/3 MG NEB ONE (18:12)
[2017-02-07] MEDS ORDERED: DUONEB 0.5 MG/3 MG ONE (18:12)
[2017-02-07] MEDS ORDERED: ATIVAN INJ 2 MG VIAL ONE (18:14)
[2017-02-07 18:27] VITALS: BMI 25.5
[2017-02-07 18:27] LABS: ABG BASE EXCESS -1.9 mmol/L (-2.0-2.0); ABG HCO3 26.8 mmol/L (22-26)
[2017-02-07 18:30] LABS: ABG ALLEN TEST POS
[2017-02-07] MEDS ORDERED: ATIVAN INJ 2 MG VIAL IVP ONE (18:35)
[2017-02-07 18:39] LABS: BASOPHILS # (AUTO) 0.2 X10^3/uL (0.0-0.1); BASOPHILS % (AUTO) 0.5 % (0.2-1.0); EOSINOPHILS % (AUTO) 3.2 % (0.9-2.9); HEMATOCRIT 35.4 % (36.0-47.0); HEMOGLOBIN 11.6 g/dL (12.0-16.0); LYMPHOCYTES # (AUTO) 10.7 X10^3/uL (1.3-2.9); LYMPHOCYTES % (AUTO) 34.5 % (21.0-51.0); MEAN CORPUSCULAR HEMOGLOBIN 27.7 pg (27.0-34.0); MEAN CORPUSCULAR HGB CONC 32.8 g/dL (33.0-35.0); MEAN CORPUSCULAR VOLUME 84.4 fL (80.0-100.0); MEAN PLATELET VOLUME 9.4 fL (7.4-11.0); MONOCYTES # (AUTO) 1.9 x10^3/uL (0.3-0.8); MONOCYTES % (AUTO) 6.1 % (0.0-13.0); NEUTROPHILS # (AUTO) 17.2 x10^3/uL (2.2-4.8); NEUTROPHILS % (AUTO) 55.7 % (42.0-75.0); PLATELET COUNT 434 X10^3/uL (150.0-450.0); RED CELL DISTRIBUTION WIDTH 14.2 % (11.6-16.5)
--- NOTE | 2017-02-07 18:48 | DR.SOBA ---
HPI - Time Seen Time seen: 18:15 - Primary Care Physician Primary Care Physician: alejandra - HPI Comment HPI Comment: HERE VIA EMS, TACHYPNEIC, TACKYCARDIA AND DIAPHORETIC AT VERGE OF RESPIRATORY FAILURE. SHE HAVE HISTORY OF COPD AND CHF. SHE IS TALKING WITH LEONOR DAVISSANDY DUE TO RESPIRATORY DISTRESS. - Complaints Chief Complaint Doctors Comments: SEVERE SOB, DIAPHRETIC, PALE AND COLD EXTREMIITES. Chief Complaint:: ems stated they were dispatched to her home where she was short of breath and struggling. Self Treatment fo Chief Complaint: ems gave duo neb and solumedrol, she took alburtol at home - Reviewed Nurses Notes Reviewed: Yes - Source History Provided: EMS - Mode of Arrival Mode of Arrival: EMS - Timing Onset of Chief Complaint: 02/06/17 - Duration Duration: Hours - Context Onset:: At Rest, With Light Exertion PE Risk Factors:: Recent Surgery (BRONCHOSCOPE) History of:: COPD, CHF, Anxiety Prehospital Care:: O2, Inhaled B2, Injected B2, Furosemide - Modifying Factors Worsens:: Exertion, Lying Flat Improves:: Sitting Up - Associated Signs and Symptoms Associated Signs and Symptoms: Wheeze, Cough, Hemoptysis, Chest Pain, Anxiety - If Chest Pain Quality: Sharp, Heavy, Pleuritic Location: Left Upper Chest, Left Lower Chest, Substernal - If Cough Cough: Productive, Yellow PMH - PMH Past Medical History: Yes Past Medical History: Anxiety, CHF, COPD, Depression, Diabetes, Dyslipidemia, Hypertension Past Surgical History: No Surgical History: Cholecystectomy, Hysterectomy, Ortho Surgery, Other - Family History History of Family Medical Conditions: Yes Family Medical History: [place], Hypertension - Social History Does patient currently use any type of tobacco product: No Have you used tobacco products in the last 12 months: No Type of Tobacco Use: None Does any household member use tobacco: No Alcohol Use: None Do you use any recreational Drugs:: No Lives With: Family Lives Where: Home - infectious screening In the last 2 months have you had wt loss of >10#?: NO Have you had fever, night sweats or hemotysis?: No Have you traveled outside the country in the last 6 months?: No Isolation: Standard ROS - Review of Systems Constitutional: Diaphoresis, Weakness, Fatigue, Other (PALE) Eyes: negative: Eye Pain, Discharge ENTM: Nose Congestion. negative: Ear Pain, Throat Pain Respiratoy: Productive Cough, Short of Breath, Wheezing Cardiovascular: Chest Pain, Edema Gastrointestinal/Abdominal: Nausea. negative: Constipation, Diarrhea, Vomiting Genitourinary: No Symptoms Reported. negative: Dysuria, Frequency, Hematuria Neurological: Anxiety, Headache, Weakness, Dizziness Musculoskeletal: Back Pain Integumentary: Change in Color (PALE). negative: Rash, Juandice Hematologic/Lymphatic: Easy Bleeding, Easy Bruising Endocrine: No Symptoms Reported All Other Systems: Reviewed and Negative PE - Vital Signs Vitals: Temperature 98.7 F Pulse Rate 153 Respiratory Rate 16 Blood Pressure [Right Arm] 146/66 Blood Pressure 142/69 O2 Sat by Pulse Oximetry 70 - General Limitations: No Limitations General Appearance: Alert, Anxious, In Distress - Head Head Exam: Normal Inspection - Eyes Eye exam: Normal Appearance, PERRL, EOMI. negative: Scleral Icterus, Conjunctival Injection - ENT ENT Exam: Normal External Ear Exam - Neck Neck Exam: Trachea Midline. negative: Tenderness, Meningismus, Lymphadenopathy - Chest Chest Inspection: Symmetric Chest Wall Rise - Respiratory Respiratory Exam: Prolonged Expiratory Phase, Respiratory Distress Respiratory Exam: Bilateral Wheezing, Bilateral Rhonchi, Bilateral Decreased Breath Sounds, Upper Wheezing, Upper Rhonchi, Upper Decreased Breath Sounds, Lower Wheezing, Lower Rhonchi, Lower Decreased Breath Sounds - Cardiovascular Cardiovascular Exam: Regular Rate, Normal Rhythm, Normal Heart Sounds - Abdominal Exam Abdominal Exam: Normal Bowel Sounds, Soft. negative: Tenderness - Extremities Extremities Exam: Normal Inspection - Back Back Exam: Normal Inspection - Neurologic Neurological Exam: Alert, Oriented X3 - Psychiatric Psychiatric Exam: Anxious - Skin Skin Exam: Pallor MDM - Additional Information Obtained Additional Information Obtained From: Family - Differential Diagnosis Differential Diagnosis: Bronchitis, CHF, COPD, Dysrhythmia, Mycardial Infarction , Pneumonia, Pneumothorax, PSVT, Pulmonary embolism, Respiratory Failure Course - Treatment Treatment: SEE ORDERS. PLACE ON BI-PAP. TACHYCARDIA IMPROVING. - Consultation Consultation Comments: DISCUSS PATIENT WITH DR. HATFIELD. HE WILL ADMIT PATIENT. - Education/Counseling Education/Counseling: Patient, Family, Education Educated On: Treatment, Diagnosis ROR - Labs Reviewed Laboratory Results Reviewed?: Yes Result Diagrams: 02/09/17 03:30 02/09/17 03:30 Laboratory: 02/07/17 19:08 Blood Blood Culture - Preliminary 02/07/17 19:08 Blood Blood Culture - Preliminary 02/07/17 19:33 Sputum - Expectorated Sputum Sputum Culture - Final Pseudomonas Aeruginosa 02/07/17 19:33 Sputum - Expectorated Sputum - Final WBC 25.2 X10^3/uL (3.6-10.0) H* 02/09/17 03:30 RBC 3.50 X10^6/uL (3.5-5.4) 02/09/17 03:30 Hgb 9.5 g/dL (12.0-16.0) L 02/09/17 03:30 Hct 29.2 % (36.0-47.0) L 02/09/17 03:30 MCV 83.4 fL (80.0-100.0) 02/09/17 03:30 MCH 27.2 pg (27.0-34.0) 02/09/17 03:30 MCHC 32.6 g/dL (33.0-35.0) L 02/09/17 03:30 RDW 13.9 % (11.6-16.5) 02/09/17 03:30 Plt Count 277 X10^3/uL (150.0-450.0) 02/09/17 03:30 Plt Count Comment Adequate (ADEQUATE) 02/07/17 18:28 MPV 9.4 fL (7.4-11.0) 02/09/17 03:30 Neut % 89.8 % (42.0-75.0) H 02/09/17 03:30 Lymph % 7.3 % (21.0-51.0) L 02/09/17 03:30 [place] % 2.8 % (0.0-13.0) 02/09/17 03:30 Eos % 0.0 % (0.9-2.9) L 02/09/17 03:30 Baso % 0.1 % (0.2-1.0) L 02/09/17 03:30 Neut # 22.6 x10^3/uL (2.2-4.8) H 02/09/17 03:30 Lymph # 1.8 X10^3/uL (1.3-2.9) 02/09/17 03:30 [place] # 0.7 x10^3/uL (0.3-0.8) 02/09/17 03:30 Eos # 0.0 x10^3/uL (0.0-0.2) 02/09/17 03:30 Baso # 0.0 X10^3/uL (0.0-0.1) 02/09/17 03:30 Absolute Nucleated RBC 0.1 /100WBC 02/09/17 03:30 Total Counted 100 02/07/17 18:28 Neutrophils % (Manual) 67 % (39-76) 02/07/17 18:28 Band Neutrophils % 1 % (0-10) 02/07/17 18:28 Lymphocytes % (Manual) 28 % (13-43) 02/07/17 18:28 Eosinophils % (Manual) 4 % (0-6) 02/07/17 18:28 Plt Morphology Comment Normal (NORMAL) 02/07/17 18:28 RBC Morphology Normal (NORMAL) 02/07/17 18:28 ESR 103 MM/HOUR (0-20) H 02/09/17 03:30 INR Target Range - 02/07/17 21:02 INR 1.06 (0.8-1.3) 02/07/17 21:02 PTT 34.7 SECONDS (22.9-36.5) 02/07/17 21:02 PTT Comment - 02/07/17 21:02 Sample Site Rra 02/07/17 18:18 ABG pH 7.230 (7.35-7.45) L 02/07/17 18:18 ABG pCO2 64.0 mmHg (35.0-45.0) H* 02/07/17 18:18 ABG pO2 94.0 mmHg (80.0-100.0) 02/07/17 18:18 ABG HCO3 26.8 mmol/L (22-26) H 02/07/17 18:18 ABG O2 Saturation 96.0 % (90-100) 02/07/17 18:18 ABG Base Excess -1.9 mmol/L (-2.0-2.0) 02/07/17 18:18 [place] Test Pos 02/07/17 18:18 A-a Gradient 539.0 mmHg 02/07/17 18:18 FiO2 100.000 02/07/17 18:18 Blood Gas Comments Halina well mm 02/07/17 18:18 Sodium 138 mmol/L (136-145) 02/09/17 03:30 Corrected Sodium 141 mmol/L (136-145) 02/09/17 03:30 Potassium 4.4 mmol/L (3.5-5.1) 02/09/17 03:30 Chloride 103 mmol/L (98-107) 02/09/17 03:30 Carbon Dioxide 29.9 mmol/L (21-32) 02/09/17 03:30 BUN 24 mg/dL (7-18) H 02/09/17 03:30 Creatinine 1.05 mg/dL (0.55-1.02) H 02/09/17 03:30 Est GFR (MDRD) Af Amer > 60 (>60) 02/09/17 03:30 Est GFR (MDRD) Non-Af 55 (>60) L 02/09/17 03:30 Glucose 220 mg/dL (65-99) H 02/09/17 03:30 Calcium 9.1 mg/dL (8.5-10.1) 02/09/17 03:30 Corrected Calcium 9.7 mg/dL (8.5-10.1) 02/09/17 03:30 Magnesium 1.5 mg/dL (1.7-2.9) L 02/08/17 05:10 Total Bilirubin 0.20 mg/dL (0.2-1.0) 02/09/17 03:30 AST 20 Units/L (15-37) 02/09/17 03:30 ALT 23 Units/L (12-78) 02/09/17 03:30 Alkaline Phosphatase 63 Units/L (46-116) 02/09/17 03:30 Creatine Kinase 82 Units/L (26-192) 02/09/17 03:30 CK-MB (CK-2) 3.7 ng/mL (0-4.0) 02/09/17 03:30 CK/CKMB % Calc 4.5 % (<4) 02/09/17 03:30 Troponin I 0.32 ng/mL (0-1.5) 02/09/17 03:30 B-Natriuretic Peptide 143 pg/mL (0-79) H 02/07/17 18:28 Total Protein 8.1 g/dL (6.4-8.2) 02/09/17 03:30 Albumin 3.2 g/dL (3.4-5.0) L 02/09/17 03:30 Globulin 4.9 g/dL (2.5-4.5) H 02/09/17 03:30 Albumin/Globulin Ratio 0.7 Ratio (1.1-2.1) L 02/09/17 03:30 Specimen Type Clean catch urine 02/07/17 20:42 Urine Color Yellow (YELLOW) 02/07/17 20:42 Urine Appearance Hazy (CLEAR) 02/07/17 20:42 Urine pH 5.0 (5.0 - 8.0) 02/07/17 20:42 Ur Specific [place] 1.020 (1.000-1.030) 02/07/17 20:42 Urine Protein 3+ (NEGATIVE) 02/07/17 20:42 Urine Glucose (UA) 1+ (NEGATIVE) 02/07/17 20:42 Urine Ketones Negative (NEGATIVE) 02/07/17 20:42 Urine Occult Blood 1+ (NEGATIVE) 02/07/17 20:42 Urine Nitrite Negative (NEGATIVE) 02/07/17 20:42 Urine Bilirubin Negative (NEGATIVE) 02/07/17 20:42 Urine Urobilinogen Normal (NORMAL) 02/07/17 20:42 Ur Leukocyte Esterase 1+ (NEGATIVE) 02/07/17 20:42 Urine RBC 0-3 /HPF (NEGATIVE) 02/07/17 20:42 Urine WBC 5-6 /HPF (NEGATIVE) 02/07/17 20:42 Ur Squamous Epith Cells Negative /HPF (NEGATIVE) 02/07/17 20:42 Amorphous Sediment 1+ /HPF (NEGATIVE) 02/07/17 20:42 Urine Bacteria Trace /HPF (NEGATIVE) 02/07/17 20:42 Ur Culture Indicated? No/not indicated 02/07/17 20:42 - XRAY XRAY Interpreted by: Radiologist XRAY Findings: REPORT DISCUSS WITH PATIENT AND HER FAMILY. - EKG Rhythm: ST (WIDE COMPLEX.EKG NOTED.) - Diagnosis Discharge Problem: COPD (chronic obstructive pulmonary disease) with acute bronchitis Respiratory failure Qualifiers: Chronicity: acute on chronic Respiratory failure complication: hypercapnia Qualified Code(s): J96.22 - Acute and chronic respiratory failure with hypercapnia CHF (congestive heart failure) Qualifiers: Congestive heart failure type: combined Congestive heart failure chronicity: acute on chronic Qualified Code(s): I50.43 - Acute on chronic combined systolic (congestive) and diastolic (congestive) heart failure - Discharge Plan Disposition: ADMITTED INPATIENT Condition: Stable - Follow ups/Referrals - Instructions
[2017-02-07 18:49] LABS: ALANINE AMINOTRANSFERASE 27 Units/L (12-78); ALBUMIN 3.9 g/dL (3.4-5.0); ALKALINE PHOSPHATASE 101 Units/L (46-116); ASPARTATE AMINO TRANSFERASE 22 Units/L (15-37); BLOOD UREA NITROGEN 12 mg/dL (7-18); CALCIUM 9.4 mg/dL (8.5-10.1); CARBON DIOXIDE 26.9 mmol/L (21-32); CHLORIDE 101 mmol/L (98-107); COR NA(FOR HYPERGLY) 144 mmol/L (136-145); CREATININE 1.24 mg/dL (0.55-1.02); GLUCOSE 318 mg/dL (65-99); SODIUM 139 mmol/L (136-145); TOTAL PROTEIN 9.5 g/dL (6.4-8.2); eGFR BLACK RACES 55 (>60); eGFR NON BLACK RACES 45 (>60)
--- NOTE | 2017-02-07 19:06 | RAD ---
HISTORY: 72-year-old female with shortness of breath and low oxygen saturation. Study: Frontal view of the chest. Comparison: Chest radiograph November 28, 2016 Findings: Left chest wall AICD is stable. The trachea is midline. The cardiac silhouette is stably enlarged with moderate pulmonary edema and chronic prominence of the interstitium and perihilar lung markings. The lungs are clear without fo effie consolidation, effusion or pneumothorax. Soft tissues are unremarkable. Osseus structures are u nremarkable. IMPRESSION: 1. Cardiomegaly with pulmonary edema. Reported By:
[2017-02-07 19:10] LABS: WHITE BLOOD COUNT 30.9 X10^3/uL (3.6-10.0)
[2017-02-07 19:11] LABS: BAND NEUTROPHILS % 1 % (0-10); PLATELET MORPHOLOGY COMMENT NORMAL (NORMAL)
[2017-02-07 19:13] LABS: CKMB % 1.6 % (<4); TROPONIN I 0.05 ng/mL (0-1.5)
[2017-02-07] MEDS ORDERED: LASIX IVP ONE ×2 (19:46→19:49)
[2017-02-07] MEDS ORDERED: ROCEPHIN VIAL 1 GM 1 GM in NS 50 ML IV + SPIKE MINIBAG* 50 ML IV ONE (19:47)
[2017-02-07] MEDS ORDERED: ROCEPHIN VIAL 1 GM ONE (19:50)
[2017-02-07] MEDS ORDERED: NS 50 ML IV 0 ML IV ONE (19:50)
[2017-02-07] MEDS ORDERED: NS 50 ML IV + SPIKE MINIBAG* 50 ML IV ONE (19:52)
[2017-02-07 20:50] LABS: BILIRUBIN,URINE NEGATIVE (NEGATIVE); BLOOD/HEMOGLOBIN,URINE 1+ (NEGATIVE); GLUCOSE, URINE 1+ (NEGATIVE); KETONES,URINE NEGATIVE (NEGATIVE); LEUKOCYTE ESTERASE ,URINE 1+ (NEGATIVE); NITRITES,URINE NEGATIVE (NEGATIVE); PROTEIN,URINE 3+ (NEGATIVE); UROBILINOGEN,URINE NORMAL (NORMAL)
[2017-02-07 20:57] LABS: AMORPHOUS SEDIMENT,UR 1+ /HPF (NEGATIVE); APPEARANCE,URINE HAZY (CLEAR); BACTERIA,URINE TRACE /HPF (NEGATIVE); COLOR,URINE YELLOW (YELLOW); RBC,URINE 0-3 /HPF (NEGATIVE); SQUAMOUS EPITHELIAL CELL,UR NEGATIVE /HPF (NEGATIVE)
[2017-02-07] MEDS ORDERED: MORPHINE SULFATE INJ 2 MG IVP PRN (20:58)
[2017-02-07] MEDS ORDERED: ZOFRAN INJ 4 MG VIAL IVP PRN (21:00)
[2017-02-07] MEDS ORDERED: LEVAQUIN PREMIX IV 750 MG 750 MG/150 ML BAG IV SCH (21:00)
[2017-02-07] MEDS ORDERED: NS 250 ML IV 250 ML IV ONE (21:58)
[2017-02-07] MEDS ORDERED: FORTAZ or TAZICEF INJ 1 GM in NS 50 ML IV + SPIKE MINIBAG* 50 ML IV SCH (22:00)
[2017-02-07] MEDS ORDERED: LEVAQUIN PREMIX IV 750 MG 750 MG/150 ML BAG IV ONE (22:00)
[2017-02-07] MEDS: FORTAZ or TAZICEF INJ 1 GM in NS 50 ML IV + SPIKE MINIBAG* 50 ML IV SCH (22:03)
[2017-02-07] MEDS: DUONEB 0.5 MG/3 MG NEB SCH (22:16)
[2017-02-08] MEDS: ATIVAN INJ 2 MG VIAL IVP SCH ×3 (00:18→20:25)
[2017-02-08] MEDS: DUONEB 0.5 MG/3 MG NEB SCH ×6 (00:36→20:52)
[2017-02-08] MEDS: HumuLIN R SUBCUT PRN ×4 (05:32→20:24)
[2017-02-08 06:08] LABS: BASOPHILS % (AUTO) 0.2 % (0.2-1.0); HEMATOCRIT 29.4 % (36.0-47.0); HEMOGLOBIN 9.6 g/dL (12.0-16.0); LYMPHOCYTES # (AUTO) 2.7 X10^3/uL (1.3-2.9); LYMPHOCYTES % (AUTO) 14.4 % (21.0-51.0); MEAN CORPUSCULAR HEMOGLOBIN 27.1 pg (27.0-34.0); MEAN CORPUSCULAR HGB CONC 32.7 g/dL (33.0-35.0); MEAN CORPUSCULAR VOLUME 82.8 fL (80.0-100.0); MEAN PLATELET VOLUME 9.5 fL (7.4-11.0); MONOCYTES # (AUTO) 0.4 x10^3/uL (0.3-0.8); MONOCYTES % (AUTO) 2.2 % (0.0-13.0); NEUTROPHILS # (AUTO) 15.3 x10^3/uL (2.2-4.8); NEUTROPHILS % (AUTO) 83.2 % (42.0-75.0); PLATELET COUNT 278 X10^3/uL (150.0-450.0); RED BLOOD COUNT 3.54 X10^6/uL (3.5-5.4); RED CELL DISTRIBUTION WIDTH 13.7 % (11.6-16.5); WHITE BLOOD COUNT 18.4 X10^3/uL (3.6-10.0)
[2017-02-08 06:12] LABS: ALBUMIN 3.2 g/dL (3.4-5.0); CARBON DIOXIDE 30.6 mmol/L (21-32); CKMB % 2.8 % (<4); COR CA(FOR HYPOALB) 9.6 mg/dL (8.5-10.1); CREATINE KINASE MB 1.9 ng/mL (0-4.0); CREATININE 1.2 mg/dL (0.55-1.02); MAGNESIUM 1.5 mg/dL (1.7-2.9); TOTAL PROTEIN 8.3 g/dL (6.4-8.2); TROPONIN I 0.2 ng/mL (0-1.5)
--- NOTE | 2017-02-08 06:19 | RAD ---
HISTORY: Shortness of breath Study: Single-view chest Comparison: February 07, 2017 Findings: Cardiac monitoring electrodes are noted on the chest. Left-sided pacemaker/defibrillator is present with intact leads. Trachea is midline. The heart size is normal. Both lungs are hyperinflated. Right lung is clear. Improving edema as seen in the left perihilar region with a small amount remaining. Osseous structures are intact. IMPRESSION: Hyperinflation of the lungs. There is significant interval improvement in aeration bilaterally with a small amount of left edema remaining. Reported By:
[2017-02-08] MEDS: FORTAZ or TAZICEF INJ 1 GM in NS 50 ML IV + SPIKE MINIBAG* 50 ML IV SCH ×2 (08:05→20:23)
[2017-02-08] MEDS: SOLU-Medrol 40 MG VIAL IVP SCH ×2 (08:06→17:02)
[2017-02-08] MEDS ORDERED: TESSALON PERLES PO PRN (09:58)
[2017-02-08] MEDS ORDERED: SENNOSIDES DOCUSATE SODIUM PO PRN (11:14)
[2017-02-08] MEDS ORDERED: UBIDECARENONE PO SCH (11:15)
[2017-02-08] MEDS ORDERED: PATIENT'S HOME MEDICATION (Budesonide-Formoterol 2 PUFF) INH SCH (11:15)
[2017-02-08] MEDS ORDERED: PATIENT'S HOME MEDICATION (Cetirizine Hcl [Zyrtec] 1 TAB) PO SCH (11:15)
[2017-02-08] MEDS ORDERED: SENOKOT PO PRN (11:36)
[2017-02-08] MEDS: PROTONIX TAB 40 MG PO SCH ×2 (12:29→20:24)
[2017-02-08] MEDS: ALDACTONE TAB 25 MG PO SCH (12:29)
[2017-02-08] MEDS: PAXIL PO SCH (12:29)
[2017-02-08] MEDS ORDERED: PROVENTIL NEB TX 0.083% 2.5MG/ 3ML NEB SCH (13:00)
[2017-02-08] MEDS: NEURONTIN CAP 300 MG PO SCH ×2 (14:00→21:03)
--- NOTE | 2017-02-08 17:46 | DR.H&P ---
H&P - History & Physical for Day of: H&P Date: 02/07/17 - Chief Complaint Chief Complaint: shortness of breath - Allergies Allergies/Adverse Reactions: Allergies Allergy/AdvReac Type Severity Reaction Status Date / Time No Known Drug Allergies Allergy Verified 02/04/17 16:51 - History of Present Illness History of Present Illness: IS A 72 YEAR OLD FEMALE PATIENT WHO PRESENTED TO THE EMERGENCY ROOM WITH COMPLAINTS OF SEVERE SHORTNESS OF BREATH THAT WAS NOT RELIEVED AFTER TAKING BREATHING TREATMENTS AT HOME. SHE WAS BROUGHT TO THE ER BY EMS. UPON ARRIVAL, PATIENT WAS NOTED WITH RALES BILATERALLY ON AUSCULTATION. SHE IS NOTED WITH A NON-PRODUCTIVE COUGH, VITALS WERE 98.7, 153, 16, 70%, 142/69. SHE WAS PLACED ON NASAL CANNULA AT 2LPM. WITH THIS, OXYGEN SATURATIONS INCREASED TO 98%. LABS WERE OBTAINED. CBC REPORTED WBC 30.9, HGB 11.6, HCT 35.4. CMP REPORTED BUN 12, CREATININE 1.24, GLUCOSE 318. CARDIAC ENZYMES WERE WNL. ABG REPORTED PH 7.230, PCO2 64, HC03 26.8. URINALYSIS REPORTED WBC 5-6, LEUKOCYTES 1+, PROTEIN 3+. A CHEST XRAY WAS OBTAINED AND REPORTED CARDIOMEGALY WITH PULMONARY EDEMA. EKG SHOWS TACHYCARDIA WITH WIDE COMPLEX. IN THE ER, SHE WAS GIVEN LASIX 40MG IV , ATIVAN 1MG IV, DUONEBS X 3, AND ROCEPHIN 1GM IV WITH SOME IMPROVEMENT IN SHORTNESS OF BREATH NOTED. A AGUILAR CATHETER WAS INSERTED FOR ACCURATE OUTPUT. WE ADMITTED PATIENT TO ICU FOR FURTHER TREATMENT AND EVALUATION. SHE WAS PLACED ON BIPAP AT 16/8, 40%. WE STARTED HER ON LEVAQUIN IV, SOLUMEDROL 80MG IV Q8H, MORPHINE 2MG IV Q6H PRN, AND ATIVAN 1MG IV Q12H. SHE WAS ALSO STARTED ON DUONEBS Q4H. WE WILL RECHECK LABS AND FOLLOW UP WITH PATIENT IN AM. - Past Medical History Past Medical History: Anxiety, CHF, COPD, Depression, Diabetes, Dyslipidemia, Hypertension Additional Medical History: Vision Deficit, Chronic Sinusitis, Bronchitis, Pneumonia, Esophageal Disorders, Gallbladder Disease, Diverticulosis, Urinary Tract Infections, Skin Cancer - Past Surgical History Surgical History: Cholecystectomy, Hysterectomy, Ortho Surgery, Other Additional Surgical History: Cataracts, Pacemaker/Defibrillator, EGD with Narendra Dilatation, Hemmorrhoidectomy - Family History Family Medical History: [place], Hypertension - Social History Does patient currently use any type of tobacco product: No Have you used tobacco products in the last 12 months: No Type of Tobacco Use: None Does any household member use tobacco: No Alcohol Use: None Drug Use: None - Medications Home Medications: Cetirizine HCl [Zyrtec] 1 tab PO DAILY 02/08/17 [History Confirmed 02/08/17] Methylsulfonylmethane [MSM] 1,000 mg PO DAILY 02/08/17 [History Confirmed ] Naproxen 1 tab PO BID 02/08/17 [History Confirmed 02/08/17] Pantoprazole Sodium 40 mg [PROTONIX 40 MG *] 1 tab PO BID 02/08/17 [History Confirmed 02/08/17] Ubidecarenone [Co Q10] 1 cap PO DAILY 02/08/17 [History Confirmed 02/08/17] - Review of Systems Constitutional: No Symptoms Reported. denies: See HPI, Fever, Chills, Sweats, Weakness, Malaise, Other Eyes: No Symptoms Reported. denies: See HPI, Pain, Vision Change, Conjunctivae Inflammation, Eyelid Inflammation, Redness, Other ENT: No Symptoms Reported. denies: See HPI, Ear Pain, Ear Discharge, Nose Pain , Nose Discharge, Nose Congestion, Mouth Pain, Mouth Swelling, Throat Pain, Throat Swelling, Other Respiratory: See HPI, Cough, Shortness of Breath, Other (RALES BILATERALLY ) Cardiovascular: Edema (BILATERAL LOWER EXTREMITIES ). denies: Chest Pain, See HPI, Palpitations, Orthopnea, Paroxysmal Noc. Dyspnea, Light Headedness, Other Gastrointestinal: No Symptoms Reported. denies: See HPI, Nausea, Vomiting, Abdominal Pain, Diarrhea, Constipation, Melena, Hematochezia, Other Genitourinary: No Symptoms Reported. denies: See HPI, Dysuria, Frequency, Incontinence, Hematuria, Retention, Other Musculoskeletal: No Symptoms Reported. denies: See HPI, Shoulder Pain, Arm Pain , Back Pain, Hand Pain, Leg Pain, Foot Pain, Neck Pain, Other Skin: Bruising. denies: No Symptoms Reported, See HPI, Rash, Lesions, Jaundice , Wound, Ecchymosis, Other Neurological: No Symptoms Reported. denies: See HPI, Weakness, Numbness, Incoordination, Change in Speech, Confusion, Seizures, Other - Physical Exam Vital Signs: Temperature 99.4 F Pulse Rate [Apical] 104 Pulse Rate 98 Respiratory Rate 24 Blood Pressure [Right Arm] 135/68 O2 Sat by Pulse Oximetry 92 Oriented: Normal Eyes: Normal Ear: Normal. negative: Right, Left, Swelling, Ecchymosis, Hemotypanum, Abrasion , Laceration Nose: Normal. negative: Injected, Discharge, Blood, Other Throat: Normal. negative: Tonsillar Hypertrophy, Red, Exudate, Dry, Other Respiratory: Rales Throughout. negative: Clear Throughout, Diminished Throughout, Rhonchi Throughout, Wheezes Throughout, RUL Clear, RML Clear, RLL Clear, ELLA Clear, LML Clear, LLL Clear, RUL Diminished, RML Diminished, RLL Diminished, ELLA Diminished, LML Diminished, LLL Diminished, RUL Absent, RML Absent, RLL Absent, ELLA Absent, LML Absent, LLL Absent, RUL Rhonchi, RML Rhonchi , RLL Rhonchi, ELLA Rhonchi, LML Rhonchi, LLL Rhonchi, RUL Insp. Wheeze, RML Insp. Wheeze, RLL Insp. Wheeze, ELLA Insp.Wheeze, LML Insp.Wheeze, LLL Insp.Wheeze, RUL Exp. Wheeze, RML Exp. Wheeze, RLL Exp. Wheeze, ELLA Exp. Wheeze , LML Exp. Wheeze, LLL Exp. Wheeze, RUL Rales, RML Rales, RLL Rales, ELLA Rales, LML Rales, LLL Rales, RUL Rub, RML Rub, RLL Rub, ELLA Rub, LML Rub, LLL Rub, RUL Squeak, RML Squeak, RLL Squeak, ELLA Squeak, LML Squeak, LLL Squeak Cardiovascular: Tachycardia. negative: Normal, Bradycardia, Irregular, S3, S4, Systolic, Diastolic, Murmur, Edema, Other : Normal. negative: Dysuria, Hematuria, Frequency, Discharge, Testicular Pain , Bleeding, , Other Auscultation: Bowel Sounds: Normal. negative: Bruit, Absent, Increased, Decreased, High Pitched, Other Palpation: Normal. negative: Spleen Enlarged, Liver Enlarged, Mass Pulsatile, Other Tenderness: Normal. negative: Diffuse, RUQ, RLQ, LUQ, LLQ, Epigastric, Periumbilical, Suprapubic, Mild, Moderate, Severe, Rebound, Guarding, Rigidity, Other Skin: Normal. negative: Decreased Turgur, Rash, Papular, Macular, Maculopapular , Vesicular, Pustular, Petechial, Red, Tender, Hot, Diaphoresis, Wound, Bruising , Ecchymosis, Other Musculoskeletal: Normal. negative: Right, Left, Shoulder, Clavicle, Arm, Elbow , Forearm, Wrist, Hand, Hip, Thigh, Knee, Leg, Ankle, Foot, Back:Thoracic, Back: Lumbar, Back:Midline, Back:Paraspinous, Pelvis, Swelling, Tender, Deformity, Pulse Deficit, Motor Deficit, Sensory Deficit, Instability, Crepitance Psychiatric: Normal. negative: Anxiety, Depression, Agitation, Other Mood Description: Calm. negative: Angry, Apathetic, Depressed, Fearful, Flat, Happy, Hostile, Sad, Suspicious, Withdrawn, Anxious, Appropriate, Labile Affect: Anxious. negative: Angry, Depressed, Flat, Hysterical, Quiet, Violent, Normal Speech Pattern: Clear. negative: Appropriate, Unclear, Inappropriate, Delayed, Slurred, Excessive, Aphasic, Artificially Ventilated - Assessment/Plan (1) Acute respiratory failure Qualifiers: Respiratory failure complication: hypoxia and hypercapnia Qualified Code(s) : J96.01 - Acute respiratory failure with hypoxia; J96.02 - Acute respiratory failure with hypercapnia Status: Acute Plan: BIPAP, SOLU-MEDROL IV, CHECK CHEST XRAY, DUONEBS Q4H, CONTINUE TO MONITOR (2) Acute exacerbation of chronic obstructive pulmonary disease (COPD) Status: Acute Plan: BIPAP, SOLU-MEDROL IV, DUONEBS Q4H, CHECK CHEST XRAY, CONTINUE TO MONITOR (3) Congestive heart failure Qualifiers: Congestive heart failure type: unspecified congestive heart failure type Congestive heart failure chronicity: acute on chronic Qualified Code(s): I50.9 - Heart failure, unspecified Status: Chronic Plan: CHECK CHEST XRAY, CHECK LABS, CONTINUE TO MONITOR (4) Diabetes mellitus type II, uncontrolled Qualifiers: Diabetes mellitus complication status: without complication Diabetes mellitus complication detail: D Diabetic retinopathy severity: D Proliferative retinopathy type: P Diabetes mellitus macular edema: D Diabetes mellitus senior care insulin use: without senior care use Laterality: L Chronic kidney disease stage: C Qualified Code(s): E11.65 - Type 2 diabetes mellitus with hyperglycemia Status: Chronic Plan: CHECK OTBS, SSI, MONITOR LABS, CONTINUE TO MONITOR
[2017-02-08] MEDS: SINGULAIR TAB 10 MG PO SCH (20:24)
[2017-02-08] MEDS: ZOCOR TAB 40 MG PO SCH (20:24)
[2017-02-08] MEDS: GLUCOPHAGE XR PO SCH (20:24)
[2017-02-08] MEDS: TUSSIONEX PENNKINETIC SUSP PO PRN (20:24)
[2017-02-08] MEDS: COLACE CAP 100 MG PO SCH (20:24)
[2017-02-08] MEDS: SNACK - Diabetic Appropriate PO SCH (20:25)
[2017-02-08] MEDS: PULMICORT NEB TX 0.5 MG NEB SCH (20:52)
[2017-02-08] MEDS ORDERED: METFORMIN HCL PO SCH (21:00)
[2017-02-08] MEDS ORDERED: PATIENT'S HOME MEDICATION (Montelukast Sodium [Montelukast Sodium] 1 TAB) PO SCH (21:00)
[2017-02-08] MEDS: XANAX PO PRN (21:38)
--- NOTE | 2017-02-08 21:50 | PCM.PROG ---
Progress Note - Progress Note for Day of Date: 02/08/17 - Subjective Subjective: WAS ADMITTED YESTERDAY WITH RESPIRATORY FAILURE, CHF, AND COPD EXACERBATION. SHE IS IN HIGH FOWLERS POSITION IN BED ON MORNING ROUNDS. SHE IS ALERT AND ORIENTED. IS AT BEDSIDE. SHE IS NOTED WITH COMPLAINTS OF SHORTNESS OF BREATH AT THIS TIME. PATIENT ALSO STATES THAT SHE HAS BEEN COUGHING UP BLOOD TINGED SPUTUM THROUGHOUT THE NIGHT. LUNGS ARE NOTED WITH RALES BILATERALLY ON AUSCULTATION. SHE HAS PITTING EDEMA TO BILATERAL LOWER EXTREMITIES. SHE IS NOTED ON NASAL CANNULA AT 4LPM. VITALS THIS AM WERE 99.0-105 -18-97%-116/70. CMP WNL EXCEPT WBC 18.4, HGB 9.6 , HCT 29.4. CMP WNL EXCEPT BUN 19, CREATININE 1.20. GLUCOSE 193, MAGNESIUM 1.5. TOTAL PROTEIN 8.3, ALBUMIN 3.2. CHEST XRAY REPORTS HYPERINFLATION OF THE LUNGS AND SIGNIFICANT INTERVAL IMPROVEMEN IN AERATION BILATERALLY WITH A SMALL AMOUT OF LEFT EDEMA REMAINING. WE WILL ORDER SCDS AND SMART VEST. WE WILL START HER ON TESSALON PERLES AND TUSSIONEX. WE WILL RECHECK LABS AND FOLLOW UP WITH PATIENT IN AM. - Past Medical Family Social History Past Med/Fam/Surg Hx: No changes since H&P Allergies: Allergies No Known Drug Allergies Allergy (Verified 02/04/17 16:51) - Review of Systems ROS: No change since H&P - Vital Signs and I&O's Vital Signs: Temperature 99.2 F Pulse Rate [Apical] 113 Pulse Rate 118 Respiratory Rate 22 Blood Pressure [Right Arm] 150/90 O2 Sat by Pulse Oximetry 4 Intake and Output: Intake & Output 02/06/17 02/07/17 02/08/17 02/09/17 11:59 11:59 11:59 11:59 Intake Total 344 1108 Output Total 400 1800 Balance -23 -692 - Physical Exam Oriented: Normal Eyes: Normal Ear: Normal. negative: Right, Left, Swelling, Ecchymosis, Hemotypanum, Abrasion , Laceration Nose: Normal. negative: Injected, Discharge, Blood, Other Throat: Normal. negative: Tonsillar Hypertrophy, Red, Exudate, Dry, Other Respiratory: Right, Left, Generalized, Rales Cardiovascular: Tachycardia. negative: Normal, Bradycardia, Irregular, S3, S4, Systolic, Diastolic, Murmur, Edema, Other : Normal. negative: Dysuria, Hematuria, Frequency, Discharge, Testicular Pain , Bleeding, , Other Auscultation: Bowel Sounds: Normal. negative: Bruit, Absent, Increased, Decreased, High Pitched, Other Tenderness: Normal. negative: Diffuse, RUQ, RLQ, LUQ, LLQ, Epigastric, Periumbilical, Suprapubic, Mild, Moderate, Severe, Rebound, Guarding, Rigidity, Other Skin: Normal. negative: Decreased Turgur, Rash, Papular, Macular, Maculopapular , Vesicular, Pustular, Petechial, Red, Tender, Hot, Diaphoresis, Wound, Bruising , Ecchymosis, Other Musculoskeletal: Normal. negative: Right, Left, Shoulder, Clavicle, Arm, Elbow , Forearm, Wrist, Hand, Hip, Thigh, Knee, Leg, Ankle, Foot, Back:Thoracic, Back: Lumbar, Back:Midline, Back:Paraspinous, Pelvis, Swelling, Tender, Deformity, Pulse Deficit, Motor Deficit, Sensory Deficit, Instability, Crepitance Psychiatric: Normal. negative: Anxiety, Depression, Agitation, Other Mood Description: Calm. negative: Angry, Apathetic, Depressed, Fearful, Flat, Happy, Hostile, Sad, Suspicious, Withdrawn, Anxious, Appropriate, Labile Affect: Anxious. negative: Angry, Depressed, Flat, Hysterical, Quiet, Violent, Normal Speech Pattern: Clear. negative: Appropriate, Unclear, Inappropriate, Delayed, Slurred, Excessive, Aphasic, Artificially Ventilated - Laboratory and Diagnostics Result Diagrams: 02/08/17 05:10 02/08/17 05:10 Labs: Laboratory WBC 18.4 X10^3/uL (3.6-10.0) H 02/08/17 05:10 RBC 3.54 X10^6/uL (3.5-5.4) 02/08/17 05:10 Hgb 9.6 g/dL (12.0-16.0) L 02/08/17 05:10 Hct 29.4 % (36.0-47.0) L 02/08/17 05:10 MCV 82.8 fL (80.0-100.0) 02/08/17 05:10 MCH 27.1 pg (27.0-34.0) 02/08/17 05:10 MCHC 32.7 g/dL (33.0-35.0) L 02/08/17 05:10 RDW 13.7 % (11.6-16.5) 02/08/17 05:10 Plt Count 278 X10^3/uL (150.0-450.0) 02/08/17 05:10 Plt Count Comment Adequate (ADEQUATE) 02/07/17 18:28 MPV 9.5 fL (7.4-11.0) 02/08/17 05:10 Neut % 83.2 % (42.0-75.0) H 02/08/17 05:10 Lymph % 14.4 % (21.0-51.0) L 02/08/17 05:10 [place] % 2.2 % (0.0-13.0) 02/08/17 05:10 Eos % 0.0 % (0.9-2.9) L 02/08/17 05:10 Baso % 0.2 % (0.2-1.0) 02/08/17 05:10 Neut # 15.3 x10^3/uL (2.2-4.8) H 02/08/17 05:10 Lymph # 2.7 X10^3/uL (1.3-2.9) 02/08/17 05:10 [place] # 0.4 x10^3/uL (0.3-0.8) 02/08/17 05:10 Eos # 0.0 x10^3/uL (0.0-0.2) 02/08/17 05:10 Baso # 0.0 X10^3/uL (0.0-0.1) 02/08/17 05:10 Absolute Nucleated RBC 0.0 /100WBC 02/08/17 05:10 Total Counted 100 02/07/17 18:28 Neutrophils % (Manual) 67 % (39-76) 02/07/17 18:28 Band Neutrophils % 1 % (0-10) 02/07/17 18:28 Lymphocytes % (Manual) 28 % (13-43) 02/07/17 18:28 Eosinophils % (Manual) 4 % (0-6) 02/07/17 18:28 Plt Morphology Comment Normal (NORMAL) 02/07/17 18:28 RBC Morphology Normal (NORMAL) 02/07/17 18:28 INR Target Range - 02/07/17 21:02 INR 1.06 (0.8-1.3) 02/07/17 21:02 PTT 34.7 SECONDS (22.9-36.5) 02/07/17 21:02 PTT Comment - 02/07/17 21:02 Sample Site Rra 02/07/17 18:18 ABG pH 7.230 (7.35-7.45) L 02/07/17 18:18 ABG pCO2 64.0 mmHg (35.0-45.0) H* 02/07/17 18:18 ABG pO2 94.0 mmHg (80.0-100.0) 02/07/17 18:18 ABG HCO3 26.8 mmol/L (22-26) H 02/07/17 18:18 ABG O2 Saturation 96.0 % (90-100) 02/07/17 18:18 ABG Base Excess -1.9 mmol/L (-2.0-2.0) 02/07/17 18:18 [place] Test Pos 02/07/17 18:18 A-a Gradient 539.0 mmHg 02/07/17 18:18 FiO2 100.000 02/07/17 18:18 Blood Gas Comments Halina well mm 02/07/17 18:18 Sodium 140 mmol/L (136-145) 02/08/17 05:10 Corrected Sodium 142 mmol/L (136-145) 02/08/17 05:10 Potassium 4.2 mmol/L (3.5-5.1) 02/08/17 05:10 Chloride 101 mmol/L (98-107) 02/08/17 05:10 Carbon Dioxide 30.6 mmol/L (21-32) 02/08/17 05:10 BUN 19 mg/dL (7-18) H 02/08/17 05:10 Creatinine 1.20 mg/dL (0.55-1.02) H 02/08/17 05:10 Est GFR (MDRD) Af Amer 57 (>60) L 02/08/17 05:10 Est GFR (MDRD) Non-Af 47 (>60) L 02/08/17 05:10 Glucose 193 mg/dL (65-99) H 02/08/17 05:10 Calcium 9.0 mg/dL (8.5-10.1) 02/08/17 05:10 Corrected Calcium 9.6 mg/dL (8.5-10.1) 02/08/17 05:10 Magnesium 1.5 mg/dL (1.7-2.9) L 02/08/17 05:10 Total Bilirubin 0.20 mg/dL (0.2-1.0) 02/08/17 05:10 AST 19 Units/L (15-37) 02/08/17 05:10 ALT 23 Units/L (12-78) 02/08/17 05:10 Alkaline Phosphatase 68 Units/L (46-116) 02/08/17 05:10 Creatine Kinase 67 Units/L (26-192) 02/08/17 05:10 CK-MB (CK-2) 1.9 ng/mL (0-4.0) 02/08/17 05:10 CK/CKMB % Calc 2.8 % (<4) 02/08/17 05:10 Troponin I 0.20 ng/mL (0-1.5) 02/08/17 05:10 B-Natriuretic Peptide 143 pg/mL (0-79) H 02/07/17 18:28 Total Protein 8.3 g/dL (6.4-8.2) H 02/08/17 05:10 Albumin 3.2 g/dL (3.4-5.0) L 02/08/17 05:10 Globulin 5.1 g/dL (2.5-4.5) H 02/08/17 05:10 Albumin/Globulin Ratio 0.6 Ratio (1.1-2.1) L 02/08/17 05:10 Specimen Type Clean catch urine 02/07/17 20:42 Urine Color Yellow (YELLOW) 02/07/17 20:42 Urine Appearance Hazy (CLEAR) 02/07/17 20:42 Urine pH 5.0 (5.0 - 8.0) 02/07/17 20:42 Ur Specific [place] 1.020 (1.000-1.030) 02/07/17 20:42 Urine Protein 3+ (NEGATIVE) 02/07/17 20:42 Urine Glucose (UA) 1+ (NEGATIVE) 02/07/17 20:42 Urine Ketones Negative (NEGATIVE) 02/07/17 20:42 Urine Occult Blood 1+ (NEGATIVE) 02/07/17 20:42 Urine Nitrite Negative (NEGATIVE) 02/07/17 20:42 Urine Bilirubin Negative (NEGATIVE) 02/07/17 20:42 Urine Urobilinogen Normal (NORMAL) 02/07/17 20:42 Ur Leukocyte Esterase 1+ (NEGATIVE) 02/07/17 20:42 Urine RBC 0-3 /HPF (NEGATIVE) 02/07/17 20:42 Urine WBC 5-6 /HPF (NEGATIVE) 02/07/17 20:42 Ur Squamous Epith Cells Negative /HPF (NEGATIVE) 02/07/17 20:42 Amorphous Sediment 1+ /HPF (NEGATIVE) 02/07/17 20:42 Urine Bacteria Trace /HPF (NEGATIVE) 02/07/17 20:42 Ur Culture Indicated? No/not indicated 02/07/17 20:42 - Plan (1) Acute respiratory failure Status: Acute Qualifiers: Respiratory failure complication: hypoxia and hypercapnia Qualified Code(s) : J96.01 - Acute respiratory failure with hypoxia; J96.02 - Acute respiratory failure with hypercapnia Plan: BIPAP, SOLU-MEDROL IV, CHECK CHEST XRAY, DUONEBS Q4H, CONTINUE TO MONITOR (2) Acute exacerbation of chronic obstructive pulmonary disease (COPD) Status: Acute Plan: BIPAP, SOLU-MEDROL IV, DUONEBS Q4H, CHECK CHEST XRAY, CONTINUE TO MONITOR (3) Congestive heart failure Status: Chronic Qualifiers: Congestive heart failure type: unspecified congestive heart failure type Congestive heart failure chronicity: acute on chronic Qualified Code(s): I50.9 - Heart failure, unspecified Plan: CHECK CHEST XRAY, CHECK LABS, CONTINUE TO MONITOR (4) Diabetes mellitus type II, uncontrolled Status: Chronic Qualifiers: Diabetes mellitus complication status: without complication Diabetes mellitus complication detail: D Diabetic retinopathy severity: D Proliferative retinopathy type: P Diabetes mellitus macular edema: D Diabetes mellitus termite renewal inspector insulin use: without termite renewal inspector use Laterality: L Chronic kidney disease stage: C Qualified Code(s): E11.65 - Type 2 diabetes mellitus with hyperglycemia Plan: CHECK OTBS, SSI, MONITOR LABS, CONTINUE TO MONITOR
[2017-02-09] MEDS: DUONEB 0.5 MG/3 MG NEB SCH ×6 (00:41→20:35)
[2017-02-09] MEDS: SOLU-Medrol 40 MG VIAL IVP SCH ×3 (00:43→17:00)
[2017-02-09 04:12] LABS: BASOPHILS % (AUTO) 0.1 % (0.2-1.0); HEMATOCRIT 29.2 % (36.0-47.0); HEMOGLOBIN 9.5 g/dL (12.0-16.0); LYMPHOCYTES # (AUTO) 1.8 X10^3/uL (1.3-2.9); LYMPHOCYTES % (AUTO) 7.3 % (21.0-51.0); MEAN CORPUSCULAR HEMOGLOBIN 27.2 pg (27.0-34.0); MEAN CORPUSCULAR HGB CONC 32.6 g/dL (33.0-35.0); MEAN CORPUSCULAR VOLUME 83.4 fL (80.0-100.0); MEAN PLATELET VOLUME 9.4 fL (7.4-11.0); MONOCYTES # (AUTO) 0.7 x10^3/uL (0.3-0.8); MONOCYTES % (AUTO) 2.8 % (0.0-13.0); NEUTROPHILS # (AUTO) 22.6 x10^3/uL (2.2-4.8); NEUTROPHILS % (AUTO) 89.8 % (42.0-75.0); PLATELET COUNT 277 X10^3/uL (150.0-450.0); RED CELL DISTRIBUTION WIDTH 13.9 % (11.6-16.5)
[2017-02-09 04:14] LABS: ALANINE AMINOTRANSFERASE 23 Units/L (12-78); ALBUMIN 3.2 g/dL (3.4-5.0); ALKALINE PHOSPHATASE 63 Units/L (46-116); ASPARTATE AMINO TRANSFERASE 20 Units/L (15-37); BLOOD UREA NITROGEN 24 mg/dL (7-18); CALCIUM 9.1 mg/dL (8.5-10.1); CARBON DIOXIDE 29.9 mmol/L (21-32); CHLORIDE 103 mmol/L (98-107); CKMB % 4.5 % (<4); COR CA(FOR HYPOALB) 9.7 mg/dL (8.5-10.1); COR NA(FOR HYPERGLY) 141 mmol/L (136-145); CREATINE KINASE 82 Units/L (26-192); CREATINE KINASE MB 3.7 ng/mL (0-4.0); CREATININE 1.05 mg/dL (0.55-1.02); GLUCOSE 220 mg/dL (65-99); SODIUM 138 mmol/L (136-145); TOTAL PROTEIN 8.1 g/dL (6.4-8.2); TROPONIN I 0.32 ng/mL (0-1.5); eGFR BLACK RACES > 60 (>60); eGFR NON BLACK RACES 55 (>60)
[2017-02-09 04:16] LABS: WHITE BLOOD COUNT 25.2 X10^3/uL (3.6-10.0)
[2017-02-09 05:13] LABS: ERYTHROCYTE SEDIMENTATION RATE 103 MM/HOUR (0-20)
[2017-02-09] MEDS: NEURONTIN CAP 300 MG PO SCH ×3 (05:28→21:17)
[2017-02-09] MEDS: HumuLIN R SUBCUT PRN ×4 (05:29→20:45)
[2017-02-09] MEDS ORDERED: MAGNESIUM SULFATE 1 GM/100 mL PREMIX 2 GM/200 ML BAG IV ONE (07:30)
--- NOTE | 2017-02-09 07:40 | RAD ---
HISTORY: COPD, shortness of breath Study: Single-view chest Comparison: February 08, 2017 Findings: The trachea is midline. The cardiac silhouette is unremarkable. Lungs demonstrate stable changes o f COPD persistent left there are airspace disease which is unchanged. The right lung appears clear.. The bony thorax is unremarkable. IMPRESSION: 1. Stable chest. Reported By:
[2017-02-09] MEDS: MAGNESIUM SULFATE 1 GM/100 mL PREMIX 1 GM/100 ML BAG IV SCH ×2 (07:42→09:03)
[2017-02-09] MEDS ORDERED: NS 250 ML IV 250 ML IV ONE (07:43)
[2017-02-09] MEDS: PULMICORT NEB TX 0.5 MG NEB SCH ×2 (08:41→20:35)
[2017-02-09] MEDS ORDERED: LEVAQUIN PREMIX IV 750 MG 750 MG/150 ML BAG IV SCH (09:00)
[2017-02-09] MEDS: FORTAZ or TAZICEF INJ 1 GM in NS 50 ML IV + SPIKE MINIBAG* 50 ML IV SCH ×2 (09:03→20:43)
[2017-02-09] MEDS: PROTONIX TAB 40 MG PO SCH ×2 (09:04→20:43)
[2017-02-09] MEDS: ALDACTONE TAB 25 MG PO SCH (09:04)
[2017-02-09] MEDS: ZyrTEC TAB 10 MG PO SCH (09:04)
[2017-02-09] MEDS: ATIVAN INJ 2 MG VIAL IVP SCH ×2 (09:04→20:41)
[2017-02-09] MEDS: GLUCOPHAGE XR PO SCH ×2 (09:04→20:43)
[2017-02-09] MEDS: PAXIL PO SCH (09:04)
--- NOTE | 2017-02-09 10:23 | PCM.PROG ---
Progress Note - Progress Note for Day of Date: 02/09/17 - Subjective Subjective: WAS ADMITTED TWO DAYS AGO WITH RESPIRATORY FAILURE, CHF, AND COPD EXACERBATION. SHE IS IN HIGH FOWLERS POSITION IN BED ON MORNING ROUNDS. SHE IS ALERT AND ORIENTED. SHE IS NOTED WITH COMPLAINTS OF SHORTNESS OF BREATH AT THIS TIME. LUNGS ARE NOTED WITH RHONCHI BILATERALLY ON AUSCULTATION. SHE HAS PITTING EDEMA TO BILATERAL LOWER EXTREMITIES THAT HAS IMPROVED SINCE YESTERDAY. SHE IS NOTED ON NASAL CANNULA AT 4LPM. VITALS THIS AM WERE 97.3-110- 22-98%-130/65. CMP WNL EXCEPT WBC INCREASED FROM 18.4 TO 25.2, HGB 9.5 , HCT 29.2. CMP WNL EXCEPT BUN 24, CREATININE 1.05. GLUCOSE 220, MAGNESIUM 1.5. TOTAL PROTEIN 8.1, ALBUMIN 3.2. CHEST XRAY REPORTS STABLE CHANGES OF COPD. WE WILL CONTINUE WITH SCDS AND SMART VEST. WE WILL CONTINUE WITH CURRENT PLAN OF CARE. WE WILL RECHECK LABS AND FOLLOW UP WITH PATIENT IN AM. - Past Medical Family Social History Past Med/Fam/Surg Hx: No changes since H&P Allergies: Allergies No Known Drug Allergies Allergy (Verified 02/04/17 16:51) - Review of Systems ROS: No change since H&P - Vital Signs and I&O's Vital Signs: Temperature 97.3 F Pulse Rate [Apical] 102 Pulse Rate 96 Respiratory Rate 24 Blood Pressure [Right Arm] 120/56 O2 Sat by Pulse Oximetry 100 Intake and Output: Intake & Output 02/06/17 02/07/17 02/08/17 02/09/17 11:59 11:59 11:59 11:59 Intake Total 344 2185 Output Total 400 2300 Balance -56 -115 - Physical Exam Oriented: Normal. negative: Time, Person, Place, Not Oriented, Unable to test, Other Eyes: Normal. negative: Blurred Vision, Diplopia, Discharge, Pain, Redness, Photophobia, Other Ear: Normal. negative: Right, Left, Swelling, Ecchymosis, Hemotypanum, Abrasion , Laceration Nose: Normal. negative: Injected, Discharge, Blood, Other Throat: Normal. negative: Tonsillar Hypertrophy, Red, Exudate, Dry, Other Respiratory: Right, Left, Generalized, Rhonchi Cardiovascular: Tachycardia. negative: Normal, Bradycardia, Irregular, S3, S4, Systolic, Diastolic, Murmur, Edema, Other : Normal. negative: Dysuria, Hematuria, Frequency, Discharge, Testicular Pain , Bleeding, , Other Auscultation: Bowel Sounds: Normal. negative: Bruit, Absent, Increased, Decreased, High Pitched, Other Palpation: Normal Tenderness: Normal. negative: Diffuse, RUQ, RLQ, LUQ, LLQ, Epigastric, Periumbilical, Suprapubic, Mild, Moderate, Severe, Rebound, Guarding, Rigidity, Other Skin: Normal. negative: Decreased Turgur, Rash, Papular, Macular, Maculopapular , Vesicular, Pustular, Petechial, Red, Tender, Hot, Diaphoresis, Wound, Bruising , Ecchymosis, Other Musculoskeletal: Normal. negative: Right, Left, Shoulder, Clavicle, Arm, Elbow , Forearm, Wrist, Hand, Hip, Thigh, Knee, Leg, Ankle, Foot, Back:Thoracic, Back: Lumbar, Back:Midline, Back:Paraspinous, Pelvis, Swelling, Tender, Deformity, Pulse Deficit, Motor Deficit, Sensory Deficit, Instability, Crepitance Psychiatric: Normal. negative: Anxiety, Depression, Agitation, Other Mood Description: Calm. negative: Angry, Apathetic, Depressed, Fearful, Flat, Happy, Hostile, Sad, Suspicious, Withdrawn, Anxious, Appropriate, Labile Affect: Anxious. negative: Angry, Depressed, Flat, Hysterical, Quiet, Violent, Normal Speech Pattern: Clear, Appropriate - Laboratory and Diagnostics Result Diagrams: 02/09/17 03:30 02/09/17 03:30 Labs: Laboratory WBC 25.2 X10^3/uL (3.6-10.0) H* 02/09/17 03:30 RBC 3.50 X10^6/uL (3.5-5.4) 02/09/17 03:30 Hgb 9.5 g/dL (12.0-16.0) L 02/09/17 03:30 Hct 29.2 % (36.0-47.0) L 02/09/17 03:30 MCV 83.4 fL (80.0-100.0) 02/09/17 03:30 MCH 27.2 pg (27.0-34.0) 02/09/17 03:30 MCHC 32.6 g/dL (33.0-35.0) L 02/09/17 03:30 RDW 13.9 % (11.6-16.5) 02/09/17 03:30 Plt Count 277 X10^3/uL (150.0-450.0) 02/09/17 03:30 Plt Count Comment Adequate (ADEQUATE) 02/07/17 18:28 MPV 9.4 fL (7.4-11.0) 02/09/17 03:30 Neut % 89.8 % (42.0-75.0) H 02/09/17 03:30 Lymph % 7.3 % (21.0-51.0) L 02/09/17 03:30 [place] % 2.8 % (0.0-13.0) 02/09/17 03:30 Eos % 0.0 % (0.9-2.9) L 02/09/17 03:30 Baso % 0.1 % (0.2-1.0) L 02/09/17 03:30 Neut # 22.6 x10^3/uL (2.2-4.8) H 02/09/17 03:30 Lymph # 1.8 X10^3/uL (1.3-2.9) 02/09/17 03:30 [place] # 0.7 x10^3/uL (0.3-0.8) 02/09/17 03:30 Eos # 0.0 x10^3/uL (0.0-0.2) 02/09/17 03:30 Baso # 0.0 X10^3/uL (0.0-0.1) 02/09/17 03:30 Absolute Nucleated RBC 0.1 /100WBC 02/09/17 03:30 Total Counted 100 02/07/17 18:28 Neutrophils % (Manual) 67 % (39-76) 02/07/17 18:28 Band Neutrophils % 1 % (0-10) 02/07/17 18:28 Lymphocytes % (Manual) 28 % (13-43) 02/07/17 18:28 Eosinophils % (Manual) 4 % (0-6) 02/07/17 18:28 Plt Morphology Comment Normal (NORMAL) 02/07/17 18:28 RBC Morphology Normal (NORMAL) 02/07/17 18:28 ESR 103 MM/HOUR (0-20) H 02/09/17 03:30 INR Target Range - 02/07/17 21:02 INR 1.06 (0.8-1.3) 02/07/17 21:02 PTT 34.7 SECONDS (22.9-36.5) 02/07/17 21:02 PTT Comment - 02/07/17 21:02 Sample Site Rra 02/07/17 18:18 ABG pH 7.230 (7.35-7.45) L 02/07/17 18:18 ABG pCO2 64.0 mmHg (35.0-45.0) H* 02/07/17 18:18 ABG pO2 94.0 mmHg (80.0-100.0) 02/07/17 18:18 ABG HCO3 26.8 mmol/L (22-26) H 02/07/17 18:18 ABG O2 Saturation 96.0 % (90-100) 02/07/17 18:18 ABG Base Excess -1.9 mmol/L (-2.0-2.0) 02/07/17 18:18 [place] Test Pos 02/07/17 18:18 A-a Gradient 539.0 mmHg 02/07/17 18:18 FiO2 100.000 02/07/17 18:18 Blood Gas Comments Halina well mm 02/07/17 18:18 Sodium 138 mmol/L (136-145) 02/09/17 03:30 Corrected Sodium 141 mmol/L (136-145) 02/09/17 03:30 Potassium 4.4 mmol/L (3.5-5.1) 02/09/17 03:30 Chloride 103 mmol/L (98-107) 02/09/17 03:30 Carbon Dioxide 29.9 mmol/L (21-32) 02/09/17 03:30 BUN 24 mg/dL (7-18) H 02/09/17 03:30 Creatinine 1.05 mg/dL (0.55-1.02) H 02/09/17 03:30 Est GFR (MDRD) Af Amer > 60 (>60) 02/09/17 03:30 Est GFR (MDRD) Non-Af 55 (>60) L 02/09/17 03:30 Glucose 220 mg/dL (65-99) H 02/09/17 03:30 Calcium 9.1 mg/dL (8.5-10.1) 02/09/17 03:30 Corrected Calcium 9.7 mg/dL (8.5-10.1) 02/09/17 03:30 Magnesium 1.5 mg/dL (1.7-2.9) L 02/08/17 05:10 Total Bilirubin 0.20 mg/dL (0.2-1.0) 02/09/17 03:30 AST 20 Units/L (15-37) 02/09/17 03:30 ALT 23 Units/L (12-78) 02/09/17 03:30 Alkaline Phosphatase 63 Units/L (46-116) 02/09/17 03:30 Creatine Kinase 82 Units/L (26-192) 02/09/17 03:30 CK-MB (CK-2) 3.7 ng/mL (0-4.0) 02/09/17 03:30 CK/CKMB % Calc 4.5 % (<4) 02/09/17 03:30 Troponin I 0.32 ng/mL (0-1.5) 02/09/17 03:30 B-Natriuretic Peptide 143 pg/mL (0-79) H 02/07/17 18:28 Total Protein 8.1 g/dL (6.4-8.2) 02/09/17 03:30 Albumin 3.2 g/dL (3.4-5.0) L 02/09/17 03:30 Globulin 4.9 g/dL (2.5-4.5) H 02/09/17 03:30 Albumin/Globulin Ratio 0.7 Ratio (1.1-2.1) L 02/09/17 03:30 Specimen Type Clean catch urine 02/07/17 20:42 Urine Color Yellow (YELLOW) 02/07/17 20:42 Urine Appearance Hazy (CLEAR) 02/07/17 20:42 Urine pH 5.0 (5.0 - 8.0) 02/07/17 20:42 Ur Specific [place] 1.020 (1.000-1.030) 02/07/17 20:42 Urine Protein 3+ (NEGATIVE) 02/07/17 20:42 Urine Glucose (UA) 1+ (NEGATIVE) 02/07/17 20:42 Urine Ketones Negative (NEGATIVE) 02/07/17 20:42 Urine Occult Blood 1+ (NEGATIVE) 02/07/17 20:42 Urine Nitrite Negative (NEGATIVE) 02/07/17 20:42 Urine Bilirubin Negative (NEGATIVE) 02/07/17 20:42 Urine Urobilinogen Normal (NORMAL) 02/07/17 20:42 Ur Leukocyte Esterase 1+ (NEGATIVE) 02/07/17 20:42 Urine RBC 0-3 /HPF (NEGATIVE) 02/07/17 20:42 Urine WBC 5-6 /HPF (NEGATIVE) 02/07/17 20:42 Ur Squamous Epith Cells Negative /HPF (NEGATIVE) 02/07/17 20:42 Amorphous Sediment 1+ /HPF (NEGATIVE) 02/07/17 20:42 Urine Bacteria Trace /HPF (NEGATIVE) 02/07/17 20:42 Ur Culture Indicated? No/not indicated 02/07/17 20:42 - Plan (1) Acute respiratory failure Status: Acute Qualifiers: Respiratory failure complication: hypoxia and hypercapnia Qualified Code(s) : J96.01 - Acute respiratory failure with hypoxia; J96.02 - Acute respiratory failure with hypercapnia Plan: BIPAP, SOLU-MEDROL IV, CHECK CHEST XRAY, DUONEBS Q4H, CONTINUE TO MONITOR (2) Acute exacerbation of chronic obstructive pulmonary disease (COPD) Status: Acute Plan: BIPAP, SOLU-MEDROL IV, DUONEBS Q4H, CHECK CHEST XRAY, CONTINUE TO MONITOR (3) Congestive heart failure Status: Chronic Qualifiers: Congestive heart failure type: unspecified congestive heart failure type Congestive heart failure chronicity: acute on chronic Qualified Code(s): I50.9 - Heart failure, unspecified Plan: CHECK CHEST XRAY, CHECK LABS, CONTINUE TO MONITOR (4) Diabetes mellitus type II, uncontrolled Status: Chronic Qualifiers: Diabetes mellitus complication status: without complication Diabetes mellitus complication detail: D Diabetic retinopathy severity: D Proliferative retinopathy type: P Diabetes mellitus macular edema: D Diabetes mellitus halfway insulin use: without terminal manager use Laterality: L Chronic kidney disease stage: C Qualified Code(s): E11.65 - Type 2 diabetes mellitus with hyperglycemia Plan: CHECK OTBS, SSI, MONITOR LABS, CONTINUE TO MONITOR (5) Anxiety Status: Chronic (6) Environmental allergies Status: Chronic Plan: CONTINUE XANAX, CONTINUE ATIVAN, CONTINUE TO MONITOR (7) Depression Status: Chronic Qualifiers: Depression Type: major depressive disorder Major depression recurrence: recurrent Active/Remission status: remission status unspecified Major depression episode severity: M Psychotic features: P Trimester: T Qualified Code(s): F33.9 - Major depressive disorder, recurrent, unspecified Plan: CONTINUE PAXIL, CONTINUE TO MONITOR (8) Hyperlipidemia Status: Chronic Qualifiers: Hyperlipidemia type: H Plan: CONTINUE ZOCOR, CONTINUE TO MONITOR
[2017-02-09] MEDS: TUSSIONEX PENNKINETIC SUSP PO PRN (20:43)
[2017-02-09] MEDS: COLACE CAP 100 MG PO SCH (20:43)
[2017-02-09] MEDS: ZOCOR TAB 40 MG PO SCH (20:43)
[2017-02-09] MEDS: SINGULAIR TAB 10 MG PO SCH (20:43)
[2017-02-09] MEDS: SNACK - Diabetic Appropriate PO SCH (20:44)
[2017-02-09] MEDS: XANAX PO PRN (20:46)
[2017-02-10] MEDS: DUONEB 0.5 MG/3 MG NEB SCH ×6 (00:40→21:01)
[2017-02-10] MEDS: SOLU-Medrol 40 MG VIAL IVP SCH ×2 (01:18→09:04)
[2017-02-10] MEDS: NEURONTIN CAP 300 MG PO SCH ×2 (05:25→21:17)
[2017-02-10] MEDS: HumuLIN R SUBCUT PRN ×3 (05:29→20:43)
[2017-02-10 06:00] LABS: ALANINE AMINOTRANSFERASE 27 Units/L (12-78); ALBUMIN 3.3 g/dL (3.4-5.0); ALKALINE PHOSPHATASE 70 Units/L (46-116); ASPARTATE AMINO TRANSFERASE 20 Units/L (15-37); BLOOD UREA NITROGEN 28 mg/dL (7-18); CALCIUM 9.1 mg/dL (8.5-10.1); CARBON DIOXIDE 27.1 mmol/L (21-32); CHLORIDE 104 mmol/L (98-107); COR CA(FOR HYPOALB) 9.7 mg/dL (8.5-10.1); COR NA(FOR HYPERGLY) 141 mmol/L (136-145); CREATININE 1.13 mg/dL (0.55-1.02); GLUCOSE 213 mg/dL (65-99); SODIUM 138 mmol/L (136-145); TOTAL PROTEIN 8.1 g/dL (6.4-8.2); eGFR BLACK RACES > 60 (>60); eGFR NON BLACK RACES 50 (>60)
--- NOTE | 2017-02-10 08:06 | RAD ---
HISTORY: Shortness of breath, CHF Study: Single-view chest Comparison: Yesterday Findings: The trachea is midline. The cardiac silhouette is stable. The lungs demonstrate improving left per ihilar airspace disease 3 within the right lower lobe there is a small 11 millimeter nodular opacity which was obscured by an overlying lead on the previous exams. This was evaluated with a CT in November of 2016 please refer to that report. The bony thorax is unremarkable. IMPRESSION: 1. Improving left lower lobe airspace disease Reported By:
[2017-02-10] MEDS: PULMICORT NEB TX 0.5 MG NEB SCH ×2 (08:34→21:02)
[2017-02-10 08:40] LABS: ERYTHROCYTE SEDIMENTATION RATE 86 MM/HOUR (0-20)
[2017-02-10 08:42] LABS: MEAN CORPUSCULAR HGB CONC 32.3 g/dL (33.0-35.0); MONOCYTES # (AUTO) 0.8 x10^3/uL (0.3-0.8); RED CELL DISTRIBUTION WIDTH 14.6 % (11.6-16.5)
[2017-02-10 09:00] LABS: BASOPHILS # (AUTO) 0.2 X10^3/uL (0.0-0.1); BASOPHILS % (AUTO) 0.6 % (0.2-1.0); EOSINOPHILS % (AUTO) 0.1 % (0.9-2.9); HEMATOCRIT 29.1 % (36.0-47.0); HEMOGLOBIN 9.4 g/dL (12.0-16.0); LYMPHOCYTES % (AUTO) 7.2 % (21.0-51.0); MEAN CORPUSCULAR HEMOGLOBIN 27.1 pg (27.0-34.0); MEAN CORPUSCULAR VOLUME 83.9 fL (80.0-100.0); MEAN PLATELET VOLUME 10.1 fL (7.4-11.0); MONOCYTES % (AUTO) 2.9 % (0.0-13.0); NEUTROPHILS # (AUTO) 24.6 x10^3/uL (2.2-4.8); NEUTROPHILS % (AUTO) 89.2 % (42.0-75.0); PLATELET COUNT 286 X10^3/uL (150.0-450.0); RED BLOOD COUNT 3.47 X10^6/uL (3.5-5.4)
[2017-02-10 09:02] LABS: PLATELET MORPHOLOGY COMMENT NORMAL (NORMAL); WHITE BLOOD COUNT 27.5 X10^3/uL (3.6-10.0)
[2017-02-10 09:03] LABS: BAND NEUTROPHILS % 3 % (0-10)
[2017-02-10] MEDS: PROTONIX TAB 40 MG PO SCH ×2 (09:04→20:41)
[2017-02-10] MEDS: GLUCOPHAGE XR PO SCH ×2 (09:05→20:40)
[2017-02-10] MEDS: ZyrTEC TAB 10 MG PO SCH (09:05)
[2017-02-10] MEDS: PAXIL PO SCH (09:05)
[2017-02-10] MEDS: ALDACTONE TAB 25 MG PO SCH (09:05)
[2017-02-10] MEDS ORDERED: MERREM VIAL 500 MG in NS 100 ML IV + SPIKE MINIBAG* 100 ML IV ONE ×2 (09:17→09:46)
--- NOTE | 2017-02-10 09:26 | PCM.PROG ---
Progress Note - Progress Note for Day of Date: 02/10/17 - Subjective Subjective: WAS ADMITTED WITH RESPIRATORY FAILURE, CHF, AND COPD EXACERBATION. SHE IS UP IN CHAIR ON MORNING ROUNDS. SHE IS ALERT AND ORIENTED. SHE IS NOTED WITH COMPLAINTS OF SHORTNESS OF BREATH AT THIS TIME. LUNGS ARE NOTED WITH RHONCHI BILATERALLY ON AUSCULTATION. SHE IS NOTED ON NASAL CANNULA AT 4LPM. VITALS THIS AM WERE 98.2-93-17-96%-135/65. CMP WNL EXCEPT WBC INCREASED FROM 25.2 TO 27.5, HGB 9.4 , HCT 29.1. CMP WNL EXCEPT BUN 28, CREATININE 1.13. GLUCOSE 213, MAGNESIUM 2.0. TOTAL PROTEIN 8.1, ALBUMIN 3.3. SPUTUM CULTURE REPORTED PSEUDOMONAS AERUGINOSA THAT WAS RESISTANT TO FORTAZ AND LEVAQUIN. CHEST XRAY REPORTS IMPROVING LEFT LOWER LOBE AIRSPACE DISEASE. WE WILL DISCONTINUE FORTAZ AND LEVAQUIN. WE WILL START PATIENT ON MEROPENEM. CASE MANAGEMENT WILL ARRANGE FOR PATIENT TO BE SET UP WITH HOME HEALTH FOR IV ANTIBIOTICS AT HOME. WE WILL CONTINUE WITH SCDS AND SMART VEST. PATIENT WILL BE CHANGED FROM ICU TO FLOOR STATUS. WE WILL RECHECK LABS AND FOLLOW UP WITH PATIENT IN AM. - Past Medical Family Social History Past Med/Fam/Surg Hx: No changes since H&P Allergies: Allergies No Known Drug Allergies Allergy (Verified 02/04/17 16:51) - Review of Systems ROS: No change since H&P - Vital Signs and I&O's Vital Signs: Temperature 98.2 F Pulse Rate [Apical] 93 Pulse Rate 109 Respiratory Rate 17 Blood Pressure [Right Arm] 135/65 O2 Sat by Pulse Oximetry 96 Intake and Output: Intake & Output 02/07/17 02/08/17 02/09/17 02/10/17 11:59 11:59 11:59 11:59 Intake Total 344 2185 2011 Output Total 400 2300 1100 Balance -56 -115 912 - Physical Exam Oriented: Normal. negative: Time, Person, Place, Not Oriented, Unable to test, Other Eyes: Normal. negative: Blurred Vision, Diplopia, Discharge, Pain, Redness, Photophobia, Other Ear: Normal. negative: Right, Left, Swelling, Ecchymosis, Hemotypanum, Abrasion , Laceration Nose: Normal. negative: Injected, Discharge, Blood, Other Throat: Normal. negative: Tonsillar Hypertrophy, Red, Exudate, Dry, Other Respiratory: Right, Left, Generalized, Rhonchi Cardiovascular: Tachycardia. negative: Normal, Bradycardia, Irregular, S3, S4, Systolic, Diastolic, Murmur, Edema, Other : Normal. negative: Dysuria, Hematuria, Frequency, Discharge, Testicular Pain , Bleeding, , Other Auscultation: Bowel Sounds: Normal. negative: Bruit, Absent, Increased, Decreased, High Pitched, Other Palpation: Normal Tenderness: Normal. negative: Diffuse, RUQ, RLQ, LUQ, LLQ, Epigastric, Periumbilical, Suprapubic, Mild, Moderate, Severe, Rebound, Guarding, Rigidity, Other Skin: Normal. negative: Decreased Turgur, Rash, Papular, Macular, Maculopapular , Vesicular, Pustular, Petechial, Red, Tender, Hot, Diaphoresis, Wound, Bruising , Ecchymosis, Other Musculoskeletal: Normal. negative: Right, Left, Shoulder, Clavicle, Arm, Elbow , Forearm, Wrist, Hand, Hip, Thigh, Knee, Leg, Ankle, Foot, Back:Thoracic, Back: Lumbar, Back:Midline, Back:Paraspinous, Pelvis, Swelling, Tender, Deformity, Pulse Deficit, Motor Deficit, Sensory Deficit, Instability, Crepitance Psychiatric: Normal. negative: Anxiety, Depression, Agitation, Other Mood Description: Calm. negative: Angry, Apathetic, Depressed, Fearful, Flat, Happy, Hostile, Sad, Suspicious, Withdrawn, Anxious, Appropriate, Labile Affect: Anxious. negative: Angry, Depressed, Flat, Hysterical, Quiet, Violent, Normal Speech Pattern: Clear, Appropriate - Laboratory and Diagnostics Result Diagrams: 02/10/17 06:50 02/10/17 05:14 Labs: Laboratory WBC 27.5 X10^3/uL (3.6-10.0) H* 02/10/17 06:50 RBC 3.47 X10^6/uL (3.5-5.4) L 02/10/17 06:50 Hgb 9.4 g/dL (12.0-16.0) L 02/10/17 06:50 Hct 29.1 % (36.0-47.0) L 02/10/17 06:50 MCV 83.9 fL (80.0-100.0) 02/10/17 06:50 MCH 27.1 pg (27.0-34.0) 02/10/17 06:50 MCHC 32.3 g/dL (33.0-35.0) L 02/10/17 06:50 RDW 14.6 % (11.6-16.5) 02/10/17 06:50 Plt Count 286 X10^3/uL (150.0-450.0) 02/10/17 06:50 Plt Count Comment Adequate (ADEQUATE) 02/10/17 06:50 MPV 10.1 fL (7.4-11.0) 02/10/17 06:50 Neut % 89.2 % (42.0-75.0) H 02/10/17 06:50 Lymph % 7.2 % (21.0-51.0) L 02/10/17 06:50 [place] % 2.9 % (0.0-13.0) 02/10/17 06:50 Eos % 0.1 % (0.9-2.9) L 02/10/17 06:50 Baso % 0.6 % (0.2-1.0) 02/10/17 06:50 Neut # 24.6 x10^3/uL (2.2-4.8) H 02/10/17 06:50 Lymph # 2.0 X10^3/uL (1.3-2.9) 02/10/17 06:50 [place] # 0.8 x10^3/uL (0.3-0.8) 02/10/17 06:50 Eos # 0.0 x10^3/uL (0.0-0.2) 02/10/17 06:50 Baso # 0.2 X10^3/uL (0.0-0.1) H 02/10/17 06:50 Absolute Nucleated RBC 0.0 /100WBC 02/10/17 06:50 Total Counted 100 02/10/17 06:50 Neutrophils % (Manual) 84 % (39-76) H 02/10/17 06:50 Band Neutrophils % 3 % (0-10) 02/10/17 06:50 Lymphocytes % (Manual) 10 % (13-43) L 02/10/17 06:50 Monocytes % (Manual) 3 % (4-9) L 02/10/17 06:50 Eosinophils % (Manual) 4 % (0-6) 02/07/17 18:28 Plt Morphology Comment Normal (NORMAL) 02/10/17 06:50 RBC Morphology Normal (NORMAL) 02/10/17 06:50 ESR 86 MM/HOUR (0-20) H 02/10/17 06:50 INR Target Range - 02/07/17 21:02 INR 1.06 (0.8-1.3) 02/07/17 21:02 PTT 34.7 SECONDS (22.9-36.5) 02/07/17 21:02 PTT Comment - 02/07/17 21:02 Sample Site Rra 02/07/17 18:18 ABG pH 7.230 (7.35-7.45) L 02/07/17 18:18 ABG pCO2 64.0 mmHg (35.0-45.0) H* 02/07/17 18:18 ABG pO2 94.0 mmHg (80.0-100.0) 02/07/17 18:18 ABG HCO3 26.8 mmol/L (22-26) H 02/07/17 18:18 ABG O2 Saturation 96.0 % (90-100) 02/07/17 18:18 ABG Base Excess -1.9 mmol/L (-2.0-2.0) 02/07/17 18:18 [place] Test Pos 02/07/17 18:18 A-a Gradient 539.0 mmHg 02/07/17 18:18 FiO2 100.000 02/07/17 18:18 Blood Gas Comments Halina well mm 02/07/17 18:18 Sodium 138 mmol/L (136-145) 02/10/17 05:14 Corrected Sodium 141 mmol/L (136-145) 02/10/17 05:14 Potassium 4.6 mmol/L (3.5-5.1) 02/10/17 05:14 Chloride 104 mmol/L (98-107) 02/10/17 05:14 Carbon Dioxide 27.1 mmol/L (21-32) 02/10/17 05:14 BUN 28 mg/dL (7-18) H 02/10/17 05:14 Creatinine 1.13 mg/dL (0.55-1.02) H 02/10/17 05:14 Est GFR (MDRD) Af Amer > 60 (>60) 02/10/17 05:14 Est GFR (MDRD) Non-Af 50 (>60) L 02/10/17 05:14 Glucose 213 mg/dL (65-99) H 02/10/17 05:14 Calcium 9.1 mg/dL (8.5-10.1) 02/10/17 05:14 Corrected Calcium 9.7 mg/dL (8.5-10.1) 02/10/17 05:14 Magnesium 2.0 mg/dL (1.7-2.9) 02/10/17 03:51 Total Bilirubin 0.20 mg/dL (0.2-1.0) 02/10/17 05:14 AST 20 Units/L (15-37) 02/10/17 05:14 ALT 27 Units/L (12-78) 02/10/17 05:14 Alkaline Phosphatase 70 Units/L (46-116) 02/10/17 05:14 Creatine Kinase 82 Units/L (26-192) 02/09/17 03:30 CK-MB (CK-2) 3.7 ng/mL (0-4.0) 02/09/17 03:30 CK/CKMB % Calc 4.5 % (<4) 02/09/17 03:30 Troponin I 0.32 ng/mL (0-1.5) 02/09/17 03:30 B-Natriuretic Peptide 143 pg/mL (0-79) H 02/07/17 18:28 Total Protein 8.1 g/dL (6.4-8.2) 02/10/17 05:14 Albumin 3.3 g/dL (3.4-5.0) L 02/10/17 05:14 Globulin 4.8 g/dL (2.5-4.5) H 02/10/17 05:14 Albumin/Globulin Ratio 0.7 Ratio (1.1-2.1) L 02/10/17 05:14 Specimen Type Clean catch urine 02/07/17 20:42 Urine Color Yellow (YELLOW) 02/07/17 20:42 Urine Appearance Hazy (CLEAR) 02/07/17 20:42 Urine pH 5.0 (5.0 - 8.0) 02/07/17 20:42 Ur Specific [place] 1.020 (1.000-1.030) 02/07/17 20:42 Urine Protein 3+ (NEGATIVE) 02/07/17 20:42 Urine Glucose (UA) 1+ (NEGATIVE) 02/07/17 20:42 Urine Ketones Negative (NEGATIVE) 02/07/17 20:42 Urine Occult Blood 1+ (NEGATIVE) 02/07/17 20:42 Urine Nitrite Negative (NEGATIVE) 02/07/17 20:42 Urine Bilirubin Negative (NEGATIVE) 02/07/17 20:42 Urine Urobilinogen Normal (NORMAL) 02/07/17 20:42 Ur Leukocyte Esterase 1+ (NEGATIVE) 02/07/17 20:42 Urine RBC 0-3 /HPF (NEGATIVE) 02/07/17 20:42 Urine WBC 5-6 /HPF (NEGATIVE) 02/07/17 20:42 Ur Squamous Epith Cells Negative /HPF (NEGATIVE) 02/07/17 20:42 Amorphous Sediment 1+ /HPF (NEGATIVE) 02/07/17 20:42 Urine Bacteria Trace /HPF (NEGATIVE) 02/07/17 20:42 Ur Culture Indicated? No/not indicated 02/07/17 20:42 - Plan (1) Acute respiratory failure Status: Acute Qualifiers: Respiratory failure complication: hypoxia and hypercapnia Qualified Code(s) : J96.01 - Acute respiratory failure with hypoxia; J96.02 - Acute respiratory failure with hypercapnia Plan: BIPAP, SOLU-MEDROL IV, CHECK CHEST XRAY, DUONEBS Q4H, CONTINUE TO MONITOR (2) Acute exacerbation of chronic obstructive pulmonary disease (COPD) Status: Acute Plan: BIPAP, SOLU-MEDROL IV, DUONEBS Q4H, CHECK CHEST XRAY, CONTINUE TO MONITOR (3) Pseudomonas aeruginosa infection Status: Acute Plan: START MEROPENEM, PHARMACY TO DOSE, ARRANGE HOME HEALTH FOR IV ABX AT HOME , CONTINUE TO MONITOR (4) Congestive heart failure Status: Chronic Qualifiers: Congestive heart failure type: unspecified congestive heart failure type Congestive heart failure chronicity: acute on chronic Qualified Code(s): I50.9 - Heart failure, unspecified Plan: CHECK CHEST XRAY, CHECK LABS, CONTINUE TO MONITOR (5) Diabetes mellitus type II, uncontrolled Status: Chronic Qualifiers: Diabetes mellitus complication status: without complication Diabetes mellitus complication detail: D Diabetic retinopathy severity: D Proliferative retinopathy type: P Diabetes mellitus macular edema: D Diabetes mellitus director long term care insulin use: without snf use Laterality: L Chronic kidney disease stage: C Qualified Code(s): E11.65 - Type 2 diabetes mellitus with hyperglycemia Plan: CHECK OTBS, SSI, MONITOR LABS, CONTINUE TO MONITOR (6) Anxiety Status: Chronic (7) Environmental allergies Status: Chronic Plan: CONTINUE XANAX, CONTINUE ATIVAN, CONTINUE TO MONITOR (8) Depression Status: Chronic Qualifiers: Depression Type: major depressive disorder Major depression recurrence: recurrent Active/Remission status: remission status unspecified Major depression episode severity: M Psychotic features: P Trimester: T Qualified Code(s): F33.9 - Major depressive disorder, recurrent, unspecified Plan: CONTINUE PAXIL, CONTINUE TO MONITOR (9) Hyperlipidemia Status: Chronic Qualifiers: Hyperlipidemia type: H Plan: CONTINUE ZOCOR, CONTINUE TO MONITOR
[2017-02-10] MEDS ORDERED: ZOFRAN INJ 4 MG VIAL IVP PRN (09:46)
[2017-02-10] MEDS ORDERED: SENOKOT PO PRN (09:46)
[2017-02-10] MEDS ORDERED: TESSALON PERLES PO PRN (09:46)
[2017-02-10] MEDS ORDERED: MORPHINE SULFATE INJ 2 MG IVP PRN (09:46)
[2017-02-10] MEDS ORDERED: MERREM VIAL 1,000 MG in NS 100 ML IV 100 ML IV SCH (10:00)
[2017-02-10] MEDS ORDERED: PHARMACY CONSULT - DOSE _____ XX SCH (10:00)
[2017-02-10] MEDS: MERREM VIAL 1,000 MG in NS 100 ML IV 100 ML IV SCH ×2 (10:37→21:15)
[2017-02-10] MEDS ORDERED: SNACK - Diabetic Appropriate PO SCH (20:00)
[2017-02-10] MEDS: COLACE CAP 100 MG PO SCH (20:41)
[2017-02-10] MEDS: SINGULAIR TAB 10 MG PO SCH (20:41)
[2017-02-10] MEDS: ZOCOR TAB 40 MG PO SCH (20:41)
[2017-02-10] MEDS: XANAX PO PRN (20:42)
[2017-02-10] MEDS: ATIVAN INJ 2 MG VIAL IVP SCH (20:42)
[2017-02-10] MEDS: TUSSIONEX PENNKINETIC SUSP PO PRN (20:42)
[2017-02-10] MEDS: SNACK - Diabetic Appropriate PO SCH (20:42)
[2017-02-11] MEDS: SOLU-Medrol 40 MG VIAL IVP SCH ×3 (00:35→16:09)
[2017-02-11] MEDS: DUONEB 0.5 MG/3 MG NEB SCH ×6 (01:03→21:06)
[2017-02-11 04:50] LABS: BASOPHILS % (AUTO) 0.1 % (0.2-1.0); HEMATOCRIT 29.2 % (36.0-47.0); HEMOGLOBIN 9.8 g/dL (12.0-16.0); LYMPHOCYTES # (AUTO) 2.5 X10^3/uL (1.3-2.9); LYMPHOCYTES % (AUTO) 11.4 % (21.0-51.0); MEAN CORPUSCULAR HEMOGLOBIN 27.6 pg (27.0-34.0); MEAN CORPUSCULAR HGB CONC 33.6 g/dL (33.0-35.0); MEAN CORPUSCULAR VOLUME 82.3 fL (80.0-100.0); MEAN PLATELET VOLUME 9.3 fL (7.4-11.0); MONOCYTES # (AUTO) 0.8 x10^3/uL (0.3-0.8); MONOCYTES % (AUTO) 3.8 % (0.0-13.0); NEUTROPHILS # (AUTO) 18.4 x10^3/uL (2.2-4.8); NEUTROPHILS % (AUTO) 84.7 % (42.0-75.0); PLATELET COUNT 291 X10^3/uL (150.0-450.0); RED BLOOD COUNT 3.55 X10^6/uL (3.5-5.4); RED CELL DISTRIBUTION WIDTH 14.4 % (11.6-16.5)
[2017-02-11 04:51] LABS: WHITE BLOOD COUNT 21.7 X10^3/uL (3.6-10.0)
[2017-02-11 05:03] LABS: ALANINE AMINOTRANSFERASE 28 Units/L (12-78); ALKALINE PHOSPHATASE 64 Units/L (46-116); ASPARTATE AMINO TRANSFERASE 14 Units/L (15-37); BLOOD UREA NITROGEN 29 mg/dL (7-18); CALCIUM 8.6 mg/dL (8.5-10.1); CARBON DIOXIDE 27.2 mmol/L (21-32); CHLORIDE 104 mmol/L (98-107); COR CA(FOR HYPOALB) 9.4 mg/dL (8.5-10.1); COR NA(FOR HYPERGLY) 139 mmol/L (136-145); CREATININE 0.96 mg/dL (0.55-1.02); GLUCOSE 197 mg/dL (65-99); SODIUM 137 mmol/L (136-145); TOTAL PROTEIN 7.3 g/dL (6.4-8.2); eGFR BLACK RACES > 60 (>60); eGFR NON BLACK RACES > 60 (>60)
[2017-02-11] MEDS: NEURONTIN CAP 300 MG PO SCH ×3 (05:29→21:04)
[2017-02-11] MEDS: HumuLIN R SUBCUT PRN ×4 (05:29→20:42)
[2017-02-11 05:34] LABS: BAND NEUTROPHILS % 4 % (0-10); PLATELET MORPHOLOGY COMMENT NORMAL (NORMAL)
[2017-02-11 05:38] LABS: ERYTHROCYTE SEDIMENTATION RATE 67 MM/HOUR (0-20)
--- NOTE | 2017-02-11 06:56 | RAD ---
HISTORY: Shortness of breath Study: Chest one view Comparison: February 10, 2017, February 09, 2017 Findings: The trachea is midline. The cardiac silhouette is unremarkable. The lungs are clear without focal infiltrate or effusion. The bony thorax is unremarkable. There is a pacemaker present on the left. IMPRESSION: 1. No acute cardiopulmonary disease. Reported By:
[2017-02-11] MEDS: GLUCOPHAGE XR PO SCH ×2 (08:28→20:43)
[2017-02-11] MEDS: ALDACTONE TAB 25 MG PO SCH (08:28)
[2017-02-11] MEDS: ZyrTEC TAB 10 MG PO SCH (08:28)
[2017-02-11] MEDS: PAXIL PO SCH (08:29)
[2017-02-11] MEDS: ATIVAN INJ 2 MG VIAL IVP SCH ×2 (08:30→20:43)
[2017-02-11] MEDS: PROTONIX TAB 40 MG PO SCH ×2 (08:30→20:41)
[2017-02-11] MEDS: MERREM VIAL 1,000 MG in NS 100 ML IV 100 ML IV SCH ×2 (09:00→21:04)
[2017-02-11] MEDS: PULMICORT NEB TX 0.5 MG NEB SCH ×2 (09:33→21:07)
--- NOTE | 2017-02-11 09:43 | PCM.PROG ---
Progress Note - Progress Note for Day of Date: 02/11/17 - Subjective Subjective: WAS ADMITTED WITH RESPIRATORY FAILURE, CHF, AND COPD EXACERBATION. SHE IS UP IN CHAIR ON MORNING ROUNDS. SHE IS ALERT AND ORIENTED. PATIENT VERBALIZES FEELING MUCH BETTER TODAY.. LUNGS ARE NOTED WITH CLEAR BILATERALLY ON AUSCULTATION. SHE IS NOTED ON NASAL CANNULA AT 4LPM. VITALS THIS AM WERE 97.1-94-20-98%-134/65. CMP WNL EXCEPT WBC DECREASED FROM 27.5 TO 21.7, HGB 9.8, HCT 29.2. CMP WNL EXCEPT BUN 29, CREATININE 0.96. GLUCOSE 197, TOTAL PROTEIN 7.3, ALBUMIN 3.0. CHEST XRAY CLEAR. WE WILL CONSULT ANESTHESIA FOR PICC LINE PLACEMENT. CASE MANAGEMENT WILL ARRANGE FOR PATIENT TO BE SET UP WITH HOME HEALTH FOR IV ANTIBIOTICS AT HOME. WE WILL RECHECK LABS AND FOLLOW UP WITH PATIENT IN AM. - Past Medical Family Social History Past Med/Fam/Surg Hx: No changes since H&P Allergies: Allergies No Known Drug Allergies Allergy (Verified 02/04/17 16:51) - Review of Systems ROS: No change since H&P - Vital Signs and I&O's Vital Signs: Temperature 97.1 F Pulse Rate [Left Brachial] 94 Pulse Rate [Right] 97 Pulse Rate [Apical] 79 Pulse Rate 109 Respiratory Rate 20 Blood Pressure [Left Arm] 134/65 Blood Pressure [Right Arm] 155/70 O2 Sat by Pulse Oximetry 98 Intake and Output: Intake & Output 02/08/17 02/09/17 02/10/17 02/11/17 11:59 11:59 11:59 11:59 Intake Total 344 2184 2011 2201 Output Total 400 2300 1100 Balance -56 -509 503 3789 - Physical Exam Oriented: Normal. negative: Time, Person, Place, Not Oriented, Unable to test, Other Eyes: Normal. negative: Blurred Vision, Diplopia, Discharge, Pain, Redness, Photophobia, Other Ear: Normal. negative: Right, Left, Swelling, Ecchymosis, Hemotypanum, Abrasion , Laceration Nose: Normal. negative: Injected, Discharge, Blood, Other Throat: Normal. negative: Tonsillar Hypertrophy, Red, Exudate, Dry, Other Respiratory: Right, Left, Generalized, Rhonchi Cardiovascular: Tachycardia. negative: Normal, Bradycardia, Irregular, S3, S4, Systolic, Diastolic, Murmur, Edema, Other : Normal. negative: Dysuria, Hematuria, Frequency, Discharge, Testicular Pain , Bleeding, , Other Auscultation: Bowel Sounds: Normal. negative: Bruit, Absent, Increased, Decreased, High Pitched, Other Palpation: Normal Tenderness: Normal. negative: Diffuse, RUQ, RLQ, LUQ, LLQ, Epigastric, Periumbilical, Suprapubic, Mild, Moderate, Severe, Rebound, Guarding, Rigidity, Other Skin: Normal. negative: Decreased Turgur, Rash, Papular, Macular, Maculopapular , Vesicular, Pustular, Petechial, Red, Tender, Hot, Diaphoresis, Wound, Bruising , Ecchymosis, Other Musculoskeletal: Normal. negative: Right, Left, Shoulder, Clavicle, Arm, Elbow , Forearm, Wrist, Hand, Hip, Thigh, Knee, Leg, Ankle, Foot, Back:Thoracic, Back: Lumbar, Back:Midline, Back:Paraspinous, Pelvis, Swelling, Tender, Deformity, Pulse Deficit, Motor Deficit, Sensory Deficit, Instability, Crepitance Psychiatric: Normal. negative: Anxiety, Depression, Agitation, Other Mood Description: Calm. negative: Angry, Apathetic, Depressed, Fearful, Flat, Happy, Hostile, Sad, Suspicious, Withdrawn, Anxious, Appropriate, Labile Affect: Anxious. negative: Angry, Depressed, Flat, Hysterical, Quiet, Violent, Normal Speech Pattern: Clear, Appropriate - Laboratory and Diagnostics Result Diagrams: 02/11/17 04:15 02/11/17 04:15 Labs: Laboratory WBC 21.7 X10^3/uL (3.6-10.0) H* 02/11/17 04:15 RBC 3.55 X10^6/uL (3.5-5.4) 02/11/17 04:15 Hgb 9.8 g/dL (12.0-16.0) L 02/11/17 04:15 Hct 29.2 % (36.0-47.0) L 02/11/17 04:15 MCV 82.3 fL (80.0-100.0) 02/11/17 04:15 MCH 27.6 pg (27.0-34.0) 02/11/17 04:15 MCHC 33.6 g/dL (33.0-35.0) 02/11/17 04:15 RDW 14.4 % (11.6-16.5) 02/11/17 04:15 Plt Count 291 X10^3/uL (150.0-450.0) 02/11/17 04:15 Plt Count Comment Adequate (ADEQUATE) 02/11/17 04:15 MPV 9.3 fL (7.4-11.0) 02/11/17 04:15 Neut % 84.7 % (42.0-75.0) H 02/11/17 04:15 Lymph % 11.4 % (21.0-51.0) L 02/11/17 04:15 [place] % 3.8 % (0.0-13.0) 02/11/17 04:15 Eos % 0.0 % (0.9-2.9) L 02/11/17 04:15 Baso % 0.1 % (0.2-1.0) L 02/11/17 04:15 Neut # 18.4 x10^3/uL (2.2-4.8) H 02/11/17 04:15 Lymph # 2.5 X10^3/uL (1.3-2.9) 02/11/17 04:15 [place] # 0.8 x10^3/uL (0.3-0.8) 02/11/17 04:15 Eos # 0.0 x10^3/uL (0.0-0.2) 02/11/17 04:15 Baso # 0.0 X10^3/uL (0.0-0.1) 02/11/17 04:15 Absolute Nucleated RBC 0.0 /100WBC 02/11/17 04:15 Total Counted 100 02/11/17 04:15 Neutrophils % (Manual) 80 % (39-76) H 02/11/17 04:15 Band Neutrophils % 4 % (0-10) 02/11/17 04:15 Lymphocytes % (Manual) 12 % (13-43) L 02/11/17 04:15 Monocytes % (Manual) 4 % (4-9) 02/11/17 04:15 Eosinophils % (Manual) 4 % (0-6) 02/07/17 18:28 Plt Morphology Comment Normal (NORMAL) 02/11/17 04:15 RBC Morphology Normal (NORMAL) 02/11/17 04:15 ESR 67 MM/HOUR (0-20) H 02/11/17 04:15 INR Target Range - 02/07/17 21:02 INR 1.06 (0.8-1.3) 02/07/17 21:02 PTT 34.7 SECONDS (22.9-36.5) 02/07/17 21:02 PTT Comment - 02/07/17 21:02 Sample Site Rra 02/07/17 18:18 ABG pH 7.230 (7.35-7.45) L 02/07/17 18:18 ABG pCO2 64.0 mmHg (35.0-45.0) H* 02/07/17 18:18 ABG pO2 94.0 mmHg (80.0-100.0) 02/07/17 18:18 ABG HCO3 26.8 mmol/L (22-26) H 02/07/17 18:18 ABG O2 Saturation 96.0 % (90-100) 02/07/17 18:18 ABG Base Excess -1.9 mmol/L (-2.0-2.0) 02/07/17 18:18 [place] Test Pos 02/07/17 18:18 A-a Gradient 539.0 mmHg 02/07/17 18:18 FiO2 100.000 02/07/17 18:18 Blood Gas Comments Halina well mm 02/07/17 18:18 Sodium 137 mmol/L (136-145) 02/11/17 04:15 Corrected Sodium 139 mmol/L (136-145) 02/11/17 04:15 Potassium 4.6 mmol/L (3.5-5.1) 02/11/17 04:15 Chloride 104 mmol/L (98-107) 02/11/17 04:15 Carbon Dioxide 27.2 mmol/L (21-32) 02/11/17 04:15 BUN 29 mg/dL (7-18) H 02/11/17 04:15 Creatinine 0.96 mg/dL (0.55-1.02) 02/11/17 04:15 Est GFR (MDRD) Af Amer > 60 (>60) 02/11/17 04:15 Est GFR (MDRD) Non-Af > 60 (>60) 02/11/17 04:15 Glucose 197 mg/dL (65-99) H 02/11/17 04:15 Calcium 8.6 mg/dL (8.5-10.1) 02/11/17 04:15 Corrected Calcium 9.4 mg/dL (8.5-10.1) 02/11/17 04:15 Magnesium 2.0 mg/dL (1.7-2.9) 02/10/17 03:51 Total Bilirubin 0.20 mg/dL (0.2-1.0) 02/11/17 04:15 AST 14 Units/L (15-37) L 02/11/17 04:15 ALT 28 Units/L (12-78) 02/11/17 04:15 Alkaline Phosphatase 64 Units/L (46-116) 02/11/17 04:15 Creatine Kinase 82 Units/L (26-192) 02/09/17 03:30 CK-MB (CK-2) 3.7 ng/mL (0-4.0) 02/09/17 03:30 CK/CKMB % Calc 4.5 % (<4) 02/09/17 03:30 Troponin I 0.32 ng/mL (0-1.5) 02/09/17 03:30 B-Natriuretic Peptide 143 pg/mL (0-79) H 02/07/17 18:28 Total Protein 7.3 g/dL (6.4-8.2) 02/11/17 04:15 Albumin 3.0 g/dL (3.4-5.0) L 02/11/17 04:15 Globulin 4.3 g/dL (2.5-4.5) 02/11/17 04:15 Albumin/Globulin Ratio 0.7 Ratio (1.1-2.1) L 02/11/17 04:15 Specimen Type Clean catch urine 02/07/17 20:42 Urine Color Yellow (YELLOW) 02/07/17 20:42 Urine Appearance Hazy (CLEAR) 02/07/17 20:42 Urine pH 5.0 (5.0 - 8.0) 02/07/17 20:42 Ur Specific [place] 1.020 (1.000-1.030) 02/07/17 20:42 Urine Protein 3+ (NEGATIVE) 02/07/17 20:42 Urine Glucose (UA) 1+ (NEGATIVE) 02/07/17 20:42 Urine Ketones Negative (NEGATIVE) 02/07/17 20:42 Urine Occult Blood 1+ (NEGATIVE) 02/07/17 20:42 Urine Nitrite Negative (NEGATIVE) 02/07/17 20:42 Urine Bilirubin Negative (NEGATIVE) 02/07/17 20:42 Urine Urobilinogen Normal (NORMAL) 02/07/17 20:42 Ur Leukocyte Esterase 1+ (NEGATIVE) 02/07/17 20:42 Urine RBC 0-3 /HPF (NEGATIVE) 02/07/17 20:42 Urine WBC 5-6 /HPF (NEGATIVE) 02/07/17 20:42 Ur Squamous Epith Cells Negative /HPF (NEGATIVE) 02/07/17 20:42 Amorphous Sediment 1+ /HPF (NEGATIVE) 02/07/17 20:42 Urine Bacteria Trace /HPF (NEGATIVE) 02/07/17 20:42 Ur Culture Indicated? No/not indicated 02/07/17 20:42 - Plan (1) Acute respiratory failure Status: Acute Qualifiers: Respiratory failure complication: hypoxia and hypercapnia Qualified Code(s) : J96.01 - Acute respiratory failure with hypoxia; J96.02 - Acute respiratory failure with hypercapnia Plan: SUPPLIMENTAL OXYGEN, SOLU-MEDROL IV, CHECK CHEST XRAY, DUONEBS Q4H, CONTINUE TO MONITOR (2) Acute exacerbation of chronic obstructive pulmonary disease (COPD) Status: Acute Plan: SUPPLIMENTAL OXYGEN, SOLU-MEDROL IV, DUONEBS Q4H, CHECK CHEST XRAY, CONTINUE TO MONITOR (3) Pseudomonas aeruginosa infection Status: Acute Plan: CONTINUE MEROPENEM, PHARMACY TO DOSE, ARRANGE HOME HEALTH FOR IV ABX AT HOME, CONTINUE TO MONITOR (4) Congestive heart failure Status: Chronic Qualifiers: Congestive heart failure type: unspecified congestive heart failure type Congestive heart failure chronicity: acute on chronic Qualified Code(s): I50.9 - Heart failure, unspecified Plan: CHECK CHEST XRAY, CHECK LABS, CONTINUE TO MONITOR (5) Diabetes mellitus type II, uncontrolled Status: Chronic Qualifiers: Diabetes mellitus complication status: without complication Diabetes mellitus complication detail: D Diabetic retinopathy severity: D Proliferative retinopathy type: P Diabetes mellitus macular edema: D Diabetes mellitus rn lactation insulin use: without rn lactation use Laterality: L Chronic kidney disease stage: C Qualified Code(s): E11.65 - Type 2 diabetes mellitus with hyperglycemia Plan: CHECK OTBS, SSI, MONITOR LABS, CONTINUE TO MONITOR (6) Anxiety Status: Chronic (7) Environmental allergies Status: Chronic Plan: CONTINUE XANAX, CONTINUE ATIVAN, CONTINUE TO MONITOR (8) Depression Status: Chronic Qualifiers: Depression Type: major depressive disorder Major depression recurrence: recurrent Active/Remission status: remission status unspecified Major depression episode severity: M Psychotic features: P Trimester: T Qualified Code(s): F33.9 - Major depressive disorder, recurrent, unspecified Plan: CONTINUE PAXIL, CONTINUE TO MONITOR (9) Hyperlipidemia Status: Chronic Qualifiers: Hyperlipidemia type: H Plan: CONTINUE ZOCOR, CONTINUE TO MONITOR
[2017-02-11] MEDS ORDERED: XYLOCAINE 1 % (PLAIN) ONE (14:01)
--- NOTE | 2017-02-11 15:29 | RAD ---
HISTORY: PICC placement Study: Chest one view Comparison: February 11, 2017 6:37 a.m. Findings: There is a new right-sided PICC line with its tip in the superior vena cava. No pneumothorax. There is a pacemaker present in the left axilla. The heart is within normal limits in size. The tracy are n ormal. The lungs are free of acute infiltrates. No pleural effusions are identified. IMPRESSION: Right PICC tip superior vena cava Lungs clear Reported By:
--- NOTE | 2017-02-11 15:30 | DR.UPDATE ---
H&P Update History and Physical Update: History and Physical reviewed and patient examined. Changes noted: NO Yes with the following:Agree with H&P from Dr Murray. will proceed with PICC insertion Procedures (ALL) - Central Line Placement PCM.CLCO: written consent Time out performed: Yes Patient placed pm monitor/pulse ox: Yes MD prep: mask, gown, gloves, other Centrial line prep: chlorhexidine scrub, sterile drapes applied Local anesthsia used: lidocane 1% Ultrasound used for placement: Yes Central line lumen ininserted: double (5fr power picc. trimmed to 40cm with 4cm out) Post procedure: good blood return Post procedure xray: tip oc catheter in good position (tip in svc) Patient tolerated procedure: Yes Complications: none
[2017-02-11] MEDS: TUSSIONEX PENNKINETIC SUSP PO PRN (20:41)
[2017-02-11] MEDS: ZOCOR TAB 40 MG PO SCH (20:43)
[2017-02-11] MEDS: COLACE CAP 100 MG PO SCH (20:43)
[2017-02-11] MEDS: SINGULAIR TAB 10 MG PO SCH (20:43)
[2017-02-11] MEDS: SNACK - Diabetic Appropriate PO SCH (20:43)
[2017-02-11] MEDS: XANAX PO PRN (20:44)
[2017-02-12] MEDS: DUONEB 0.5 MG/3 MG NEB SCH ×3 (01:22→08:55)
[2017-02-12] MEDS: SOLU-Medrol 40 MG VIAL IVP SCH ×3 (01:41→09:05)
[2017-02-12 05:20] LABS: ALANINE AMINOTRANSFERASE 40 Units/L (12-78); ALBUMIN 2.9 g/dL (3.4-5.0); ALKALINE PHOSPHATASE 58 Units/L (46-116); ASPARTATE AMINO TRANSFERASE 22 Units/L (15-37); BLOOD UREA NITROGEN 25 mg/dL (7-18); CALCIUM 8.6 mg/dL (8.5-10.1); CARBON DIOXIDE 30.1 mmol/L (21-32); CHLORIDE 104 mmol/L (98-107); COR CA(FOR HYPOALB) 9.5 mg/dL (8.5-10.1); COR NA(FOR HYPERGLY) 143 mmol/L (136-145); CREATININE 0.88 mg/dL (0.55-1.02); GLUCOSE 170 mg/dL (65-99); SODIUM 141 mmol/L (136-145); eGFR BLACK RACES > 60 (>60); eGFR NON BLACK RACES > 60 (>60)
[2017-02-12] MEDS: NEURONTIN CAP 300 MG PO SCH ×2 (05:31→14:09)
[2017-02-12] MEDS: HumuLIN R SUBCUT PRN ×2 (05:32→11:07)
--- NOTE | 2017-02-12 06:25 | RAD ---
HISTORY: Shortness of breath Study: Chest one view Comparison: February 11, 2017 Findings: There is a pacemaker present in the left axilla. There is a right-sided PICC line in good position. The heart is within normal limits in size. No congestive heart failure is noted. The lungs are gener ally hyperinflated but free of acute alveolar infiltrates. No pleural effusions are identified. The bony thorax is unremarkable. IMPRESSION: Lungs mildly hyperinflated but clear Reported By:
[2017-02-12 06:32] LABS: BASOPHILS % (AUTO) 0.2 % (0.2-1.0); EOSINOPHILS % (AUTO) 0.1 % (0.9-2.9); HEMATOCRIT 29.6 % (36.0-47.0); HEMOGLOBIN 9.9 g/dL (12.0-16.0); LYMPHOCYTES # (AUTO) 2.9 X10^3/uL (1.3-2.9); LYMPHOCYTES % (AUTO) 13.6 % (21.0-51.0); MEAN CORPUSCULAR HEMOGLOBIN 27.7 pg (27.0-34.0); MEAN CORPUSCULAR HGB CONC 33.3 g/dL (33.0-35.0); MEAN CORPUSCULAR VOLUME 83.2 fL (80.0-100.0); MEAN PLATELET VOLUME 9.8 fL (7.4-11.0); MONOCYTES # (AUTO) 1.2 x10^3/uL (0.3-0.8); MONOCYTES % (AUTO) 5.5 % (0.0-13.0); NEUTROPHILS # (AUTO) 17.1 x10^3/uL (2.2-4.8); NEUTROPHILS % (AUTO) 80.6 % (42.0-75.0); PLATELET COUNT 281 X10^3/uL (150.0-450.0); RED BLOOD COUNT 3.56 X10^6/uL (3.5-5.4); RED CELL DISTRIBUTION WIDTH 14.3 % (11.6-16.5)
[2017-02-12 06:37] LABS: WHITE BLOOD COUNT 21.2 X10^3/uL (3.6-10.0)
[2017-02-12 06:50] LABS: BAND NEUTROPHILS % 2 % (0-10); PLATELET MORPHOLOGY COMMENT NORMAL (NORMAL)
[2017-02-12] MEDS: PULMICORT NEB TX 0.5 MG NEB SCH (08:55)
[2017-02-12] MEDS: ALDACTONE TAB 25 MG PO SCH (08:58)
[2017-02-12] MEDS: MERREM VIAL 1,000 MG in NS 100 ML IV 100 ML IV SCH (08:58)
[2017-02-12] MEDS: PAXIL PO SCH (08:58)
[2017-02-12] MEDS: PROTONIX TAB 40 MG PO SCH (08:58)
[2017-02-12] MEDS: ZyrTEC TAB 10 MG PO SCH (08:58)
[2017-02-12] MEDS: ATIVAN INJ 2 MG VIAL IVP SCH (09:04)
[2017-02-12 13:06] VITALS: BP 151/74
--- NOTE | 2017-02-14 15:28 | DR.CARTERD ---
- Discharge Summary for: Discharge Summary for Date of:: 02/12/17 - Admission Date Date of Admission: 02/07/17 - Admission Diagnoses Admission Diagnosis: (1) Acute respiratory failure (2) Acute exacerbation of chronic obstructive pulmonary disease (COPD) (3) Congestive heart failure (4) Diabetes mellitus type II, uncontrolled - Discharge Date Discharge Date: 02/12/17 - Discharge Diagnoses Discharge Diagnosis: (1) Acute respiratory failure (2) Acute exacerbation of chronic obstructive pulmonary disease (COPD) (3) Pseudomonas aeruginosa infection (4) Congestive heart failure (5) Diabetes mellitus type II, uncontrolled (6) Anxiety (7) Environmental allergies (8) Depression (9) Hyperlipidemia - Hospital Course Hospital Course: IS A 72 YEAR OLD FEMALE PATIENT WHO PRESENTED TO THE EMERGENCY ROOM WITH COMPLAINTS OF SEVERE SHORTNESS OF BREATH THAT WAS NOT RELIEVED AFTER TAKING BREATHING TREATMENTS AT HOME. SHE WAS BROUGHT TO THE ER BY EMS. UPON ARRIVAL, PATIENT WAS NOTED WITH RALES BILATERALLY ON AUSCULTATION. SHE IS NOTED WITH A NON-PRODUCTIVE COUGH, VITALS WERE 98.7, 153, 16, 70%, 142/69. SHE WAS PLACED ON NASAL CANNULA AT 2LPM. WITH THIS, OXYGEN SATURATIONS INCREASED TO 98% . LABS WERE OBTAINED. CBC REPORTED WBC 30.9, HGB 11.6, HCT 35.4. CMP REPORTED BUN 12, CREATININE 1.24, GLUCOSE 318. CARDIAC ENZYMES WERE WNL. ABG REPORTED PH 7.230, PCO2 64, HC03 26.8. URINALYSIS REPORTED WBC 5-6, LEUKOCYTES 1+, PROTEIN 3 +. A CHEST XRAY WAS OBTAINED AND REPORTED CARDIOMEGALY WITH PULMONARY EDEMA. EKG SHOWS TACHYCARDIA WITH WIDE COMPLEX. IN THE ER, SHE WAS GIVEN LASIX 40MG IV , ATIVAN 1MG IV, DUONEBS X 3, AND ROCEPHIN 1GM IV WITH SOME IMPROVEMENT IN SHORTNESS OF BREATH NOTED. A AGUILAR CATHETER WAS INSERTED FOR ACCURATE OUTPUT. WE ADMITTED PATIENT TO ICU FOR FURTHER TREATMENT AND EVALUATION. SHE WAS PLACED ON BIPAP AT 16/8, 40%. WE STARTED HER ON LEVAQUIN IV, SOLUMEDROL 80MG IV Q8H, MORPHINE 2MG IV Q6H PRN, AND ATIVAN 1MG IV Q12H. SHE WAS ALSO STARTED ON DUONEBS Q4H. THE MORNING FOLLOWING ADMISSION, PATIENT CONTINUED WITH COMPLAINTS OF SHORTNESS OF BREATH AND PRODUCTIVE COUGH. SHE REPORTED COUGHING UP BLOOD TINGED SPUTUM. WE STARTED HER ON FORTAZ 1 GM Q12H, LEVAQIN 750MG DAILY, TUSSIONEX 5 ML Q12H PRN AND TESSALON PERLES 200MG TID. WE DISCONTINUED THE LEVAQUIN. WE ALSO STARTED SMART VEST AND SCDS. MAGNESIUM WAS 1.5. WE REPLETED THIS WITH MAGNESIUM SULFATE 2GM IV. ON THE FOURTH DAY OF STAY, SPUTUM CULTURE WAS POSITIVE FOR PSEUDOMONAS AERUGINOSA. IT WAS NOT SENSITIVE TO LEVAQUIN OR FORTAZ. WE DISCONTINUED THESE ANTIBIOTICS AND STARTED MEROPENEM 1 GM Q12H. OVER THE NEXT FEW DAYS, PATIENTS SYMPTOMS IMPROVED. ON THE DAY OF DISCHARGE, PATIENT IS ALERT AND ORIENTED, SITTING UP IN CHAIR. PATIENT REPORTS THAT SHORTNESS OF BREATH HAS IMPROVED. LUNGS CLEAR ON AUSCULTATION. VITALS ARE 96.9-78-20-98%-151/74. CBC WNL EXCEPT WBC 21.2, HGB 9.9 , HCT 29.6. CMP WNL EXCEPT BUN 25, GLUCOSE 170, ALBUMIN 2.9. CHEST XRAY CLEAR. WE CONSULTED FOR A PICC LINE TODAY. WE PLANNED FOR DISCHARGE AFTER PICC LINE WAS PLACED. INSTRUCTIONS FOR MEDICATIONS AND FOLLOW-UP WERE DISCUSSED WITH PATIENT AND SPOUSE. THEY BOTH VERBALIZED UNDERSTANDING. WE GAVE HER PRESCRIPTIONS FOR PREDNISONE 10 MG DAILY AND MEROPENEM 1GM IV Q12H TO BE ADMINISTERED BY HOME HEALTH NURSE. PATIENT WAS DISCHARGED HOME WITH IN STABLE CONDITION WITH INSTRUCTIONS TO FOLLOW UP IN OFFICE IN 2 WEEKS. - Discharge Medications Discharge Medications: Cetirizine HCl [Zyrtec] 1 tab PO DAILY 02/08/17 [History] Methylsulfonylmethane [MSM] 1,000 mg PO DAILY 02/08/17 [History] Naproxen 1 tab PO BID 02/08/17 [History] Pantoprazole Sodium 40 mg [PROTONIX 40 MG *] 1 tab PO BID 02/08/17 [History] Ubidecarenone [Co Q10] 1 cap PO DAILY 02/08/17 [History] Ipratropium/Albuterol Nebule [DUONEB 0.5 MG/3 MG NEBULE *] 1 ea NEB QID #120 each 02/12/17 [Rx] Meropenem-0.9% Sodium Chloride [Meropenem-0.9% NaCl 1 Gram/50] 1 gm IV Q12H #28 piggyback 02/12/17 [Rx] Prednisone [Prednisone Tab 10 mg] 10 mg PO BID #60 tab 02/12/17 [Rx]
== END 2017-02-12 15:15 | disposition home health service (06) | DRG 189 ==
LOC: ER 18:06 → ICU 20:38
PROVIDERS: ADMIT Internal Medicine; ATTEND Internal Medicine
DX: J96.02 Acute respiratory failure with hypercapnia (principal); I50.43 Acute on chronic combined systolic (congestive) and diastolic (congestive) heart failure; J44.1 Chronic obstructive pulmonary disease with (acute) exacerbation; J96.22 Acute and chronic respiratory failure with hypercapnia; J20.8 Acute bronchitis due to other specified organisms; R94.31 Abnormal electrocardiogram [ECG] [EKG]; E11.65 Type 2 diabetes mellitus with hyperglycemia; E78.2 Mixed hyperlipidemia; I10 Essential (primary) hypertension; F32.89 Other specified depressive episodes; F41.8 Other specified anxiety disorders; B96.5 Pseudomonas (aeruginosa) (mallei) (pseudomallei) as the cause of diseases classified elsewhere; I51.7 Cardiomegaly; R60.0 Localized edema
CPT/HCPCS: 36415; 36600; 51702; 71010; 80053; 81001; 82550; 82553; 82803; 83735; 83880; 84484; 85025; 85610; 85652; 85730; 87040; 87070; 87077; 87186; 87205; 93005; 93010; 94640; 94644; 94660; 94669; 96365; 96374; 96375; 99284; 99285; A4222; A4618; A7030; J0696; J0713; J1815; J1940; J1956; J2001; J2060; J2185; J2920; J2930; J7620; J7626

== ENCOUNTER 2017-04-18 07:48 | Day surgery (SDC) | payer OTHER, MEDICARE ==
[2017-04-18] MEDS ORDERED: D5 LR 1000 ML 1,000 ML IV ONE (08:14)
[2017-04-18] MEDS ORDERED: DIPRIVAN VIAL 20 ML ONE (10:44)
[2017-04-18 11:24] VITALS: BP 133/74
== END 2017-04-18 11:27 | disposition home or self-care (01) ==
LOC: SURG1 07:48
PROVIDERS: ATTEND Internal Medicine Gastroenterology
PROC: 0DJ08ZZ Inspection of Upper Intestinal Tract, Via Natural or Artificial Opening Endoscopic (ICD-10-PCS; principal; 2017-04-18 10:30)
DX: K25.9 Gastric ulcer, unspecified as acute or chronic, without hemorrhage or perforation (principal); K21.9 Gastro-esophageal reflux disease without esophagitis; R10.13 Epigastric pain; K44.9 Diaphragmatic hernia without obstruction or gangrene; K20.8 Other esophagitis
CPT/HCPCS: 99100; A4217; J3490; J7120

== ENCOUNTER 2017-05-21 19:13 | Emergency (ER) | payer OTHER, MEDICARE ==
[2017-05-21 19:25] VITALS: BMI 27.8
[2017-05-21] MEDS ORDERED: DUONEB 0.5 MG/3 MG NEB ONE (19:25)
--- NOTE | 2017-05-21 19:27 | DR.GENAD ---
HPI - PCP Primary Care Physician: alejandra - HPI Comment HPI Comment: Shortness of breath onset this evening while sorting shelled peac[place]. She denies cough, c/p, palpitations or diaphoresis. She took inhalations of Symbicort and Duonebb at home and called EMS for transport to the .D. - Complaint/Symptoms Chief Complaint:: pt states" i got to feeling like i couldn't catch my breath" pt did a neb tx before ems arrived pt in no acute distress on triage Self Treatment fo Chief Complaint: neb tx at home - Nurses notes reviewed Nurses Notes Review: Yes - Source History Provided: Patient - Mode of Arrival Mode of Arrival: EMS - Timing Onset of Chief Complaint: 05/21/17 Came on: Gradually - Severity Severity: Moderate - Modifying Factors Worsens:: nothing Improves:: nothing - Associated Signs and Symptoms Associated Signs and Symptoms: none PMH - PMH Past Medical History: Yes Past Medical History: Anxiety, CHF, COPD, Depression, Diabetes, Dyslipidemia, Hypertension Past Surgical History: Yes Surgical History: Cholecystectomy, Hysterectomy, Ortho Surgery, Other Past Surgical History Comment: pacemaker/difib - Family History History of Family Medical Conditions: Yes Family Medical History: [place], Hypertension - Social History Type of Tobacco Use: None Does any household member use tobacco: No Alcohol Use: None Do you use any recreational Drugs:: No Lives With: Family Lives Where: Home - infectious screening In the last 2 months have you had wt loss of >10#?: NO Have you had fever, night sweats or hemotysis?: No Have you traveled outside the country in the last 6 months?: No Isolation: Standard ROS - Review of Systems Constitutional: No Symptoms Reported Eyes: No Symptoms Reported ENTM: No Symptoms Reported Respiratoy: Short of Breath Cardiovascular: No Symptoms Reported Gastrointestinal/Abdominal: No Symptoms Reported Genitourinary: No Symptoms Reported Neurological: No Symptoms Reported Musculoskeletal: No Symptoms Reported Integumentary: No Symptoms Reported Hematologic/Lymphatic: No Symptoms Reported Endocrine: No Symptoms Reported Psychiatric: No Symptoms Reported All Other Systems: Reviewed and Negative PE - Vital Signs Vitals: Temperature 97.8 F Pulse Rate [Apical] 130 Pulse Rate 111 Respiratory Rate 17 Blood Pressure [Left Arm] 151/74 Blood Pressure [Right Arm] 158/82 Blood Pressure 121/58 O2 Sat by Pulse Oximetry 96 - General Limitations: No Limitations General Appearance: Alert, In No Apparent Distress - Head Head Exam: Normal Inspection - Eyes Eye exam: Normal Appearance - ENT ENT Exam: Normal Exam - Neck Neck Exam: Normal Inspection, Full ROM, Trachea Midline - Chest Chest Inspection: Normal Inspection - Respiratory Respiratory Exam: Normal Lung Sounds Bilat - Cardiovascular Cardiovascular Exam: Normal Rhythm, Tachycardia, Normal Heart Sounds - Abdominal Exam Abdominal Exam: Normal Inspection, Normal Bowel Sounds, Soft - Extremities Extremities Exam: Normal Inspection, Full ROM - Back Back Exam: Normal Inspection - Neurologic Neurological Exam: Alert, Oriented X3 - Psychiatric Psychiatric Exam: Normal Affect, Normal Mood - Skin Skin Exam: Warm, Dry, Intact, Normal Color Course - Reevaluation 1st: Improved 2nd: Improved (she is diuresing well into the bedside commode ofered her.) - Education/Counseling Education/Counseling: Patient, Family Educated On: Treatment, Diagnosis, Needs for Follow Up ROR - Labs Reviewed Result Diagrams: 05/21/17 19:34 05/21/17 19:34 Laboratory: WBC 14.3 X10^3/uL (3.6-10.0) H 05/21/17 19:34 RBC 3.66 X10^6/uL (3.5-5.4) 05/21/17 19:34 Hgb 9.6 g/dL (12.0-16.0) L 05/21/17 19:34 Hct 29.8 % (36.0-47.0) L 05/21/17 19:34 MCV 81.3 fL (80.0-100.0) 05/21/17 19:34 MCH 26.2 pg (27.0-34.0) L 05/21/17 19:34 MCHC 32.3 g/dL (33.0-35.0) L 05/21/17 19:34 RDW 15.7 % (11.6-16.5) 05/21/17 19:34 Plt Count 332 X10^3/uL (150.0-450.0) 05/21/17 19:34 MPV 8.5 fL (7.4-11.0) 05/21/17 19:34 Neut % 77.7 % (42.0-75.0) H 05/21/17 19:34 Lymph % 15.3 % (21.0-51.0) L 05/21/17 19:34 [place] % 4.8 % (0.0-13.0) 05/21/17 19:34 Eos % 1.7 % (0.9-2.9) 05/21/17 19:34 Baso % 0.5 % (0.2-1.0) 05/21/17 19:34 Neut # 11.1 x10^3/uL (2.2-4.8) H 05/21/17 19:34 Lymph # 2.2 X10^3/uL (1.3-2.9) 05/21/17 19:34 [place] # 0.7 x10^3/uL (0.3-0.8) 05/21/17 19:34 Eos # 0.2 x10^3/uL (0.0-0.2) 05/21/17 19:34 Baso # 0.1 X10^3/uL (0.0-0.1) 05/21/17 19:34 Absolute Nucleated RBC 0.0 /100WBC 05/21/17 19:34 Sodium 139 mmol/L (136-145) 05/21/17 19:34 Corrected Sodium 142 mmol/L (136-145) 05/21/17 19:34 Potassium 4.5 mmol/L (3.5-5.1) 05/21/17 19:34 Chloride 102 mmol/L (98-107) 05/21/17 19:34 Carbon Dioxide 29.4 mmol/L (21-32) 05/21/17 19:34 BUN 16 mg/dL (7-18) 05/21/17 19:34 Creatinine 0.91 mg/dL (0.55-1.02) 05/21/17 19:34 Est GFR (MDRD) Af Amer > 60 (>60) 05/21/17 19:34 Est GFR (MDRD) Non-Af > 60 (>60) 05/21/17 19:34 Glucose 239 mg/dL (65-99) H 05/21/17 19:34 Calcium 9.3 mg/dL (8.5-10.1) 05/21/17 19:34 Corrected Calcium 9.9 mg/dL (8.5-10.1) 05/21/17 19:34 Total Bilirubin 0.20 mg/dL (0.2-1.0) 05/21/17 19:34 AST 20 Units/L (15-37) 05/21/17 19:34 ALT 20 Units/L (12-78) 05/21/17 19:34 Alkaline Phosphatase 64 Units/L (46-116) 05/21/17 19:34 B-Natriuretic Peptide 84.7 pg/mL (0-79) H 05/21/17 19:34 Total Protein 7.6 g/dL (6.4-8.2) 05/21/17 19:34 Albumin 3.3 g/dL (3.4-5.0) L 05/21/17 19:34 Globulin 4.3 g/dL (2.5-4.5) 05/21/17 19:34 Albumin/Globulin Ratio 0.8 Ratio (1.1-2.1) L 05/21/17 19:34 - XRAY XRAY Interpreted by: Radiologist XRAY Findings: mild pulmonary edema. - Diagnosis Discharge Problem: SOB (shortness of breath), CHF (congestive heart failure), NYHA class III - Discharge Plan Disposition: 01 HOME, SELF-CARE Condition: Stable - Follow ups/Referrals Follow ups/Referrals: Taiwo Murray [Primary Care Provider] - 3 days - Instructions
[2017-05-21] MEDS ORDERED: DUONEB 0.5 MG/3 MG ONE (19:45)
[2017-05-21 19:47] LABS: BASOPHILS # (AUTO) 0.1 X10^3/uL (0.0-0.1); BASOPHILS % (AUTO) 0.5 % (0.2-1.0); EOSINOPHILS # (AUTO) 0.2 x10^3/uL (0.0-0.2); EOSINOPHILS % (AUTO) 1.7 % (0.9-2.9); HEMATOCRIT 29.8 % (36.0-47.0); HEMOGLOBIN 9.6 g/dL (12.0-16.0); LYMPHOCYTES # (AUTO) 2.2 X10^3/uL (1.3-2.9); LYMPHOCYTES % (AUTO) 15.3 % (21.0-51.0); MEAN CORPUSCULAR HEMOGLOBIN 26.2 pg (27.0-34.0); MEAN CORPUSCULAR HGB CONC 32.3 g/dL (33.0-35.0); MEAN CORPUSCULAR VOLUME 81.3 fL (80.0-100.0); MEAN PLATELET VOLUME 8.5 fL (7.4-11.0); MONOCYTES # (AUTO) 0.7 x10^3/uL (0.3-0.8); MONOCYTES % (AUTO) 4.8 % (0.0-13.0); NEUTROPHILS # (AUTO) 11.1 x10^3/uL (2.2-4.8); NEUTROPHILS % (AUTO) 77.7 % (42.0-75.0); PLATELET COUNT 332 X10^3/uL (150.0-450.0); RED BLOOD COUNT 3.66 X10^6/uL (3.5-5.4); RED CELL DISTRIBUTION WIDTH 15.7 % (11.6-16.5); WHITE BLOOD COUNT 14.3 X10^3/uL (3.6-10.0)
[2017-05-21 19:57] LABS: ALANINE AMINOTRANSFERASE 20 Units/L (12-78); ALBUMIN 3.3 g/dL (3.4-5.0); ALKALINE PHOSPHATASE 64 Units/L (46-116); ASPARTATE AMINO TRANSFERASE 20 Units/L (15-37); BLOOD UREA NITROGEN 16 mg/dL (7-18); CALCIUM 9.3 mg/dL (8.5-10.1); CARBON DIOXIDE 29.4 mmol/L (21-32); CHLORIDE 102 mmol/L (98-107); COR CA(FOR HYPOALB) 9.9 mg/dL (8.5-10.1); COR NA(FOR HYPERGLY) 142 mmol/L (136-145); CREATININE 0.91 mg/dL (0.55-1.02); SODIUM 139 mmol/L (136-145); TOTAL PROTEIN 7.6 g/dL (6.4-8.2); eGFR BLACK RACES > 60 (>60); eGFR NON BLACK RACES > 60 (>60)
--- NOTE | 2017-05-21 20:03 | RAD ---
HISTORY: 72-year-old female with shortness of breath. History of COPD and CHF. Study: Frontal view of the chest. Comparison: Chest radiograph 02/12/2017 Findings: Patient is rotated to the right. Stable left chest wall AICD. The trachea is midline. The cardiac silhouette is stably enlarged with chronic prominence of the per ihilar lung markings and interstitium with mild pulmonary edema. The lungs are without focal consoli dation, effusion or pneumothorax. Soft tissues are unremarkable. Osseous structures are unremarkable . IMPRESSION: 1. Mild pulmonary edema. Reported By:
[2017-05-21 20:06] LABS: B-TYPE NATRIURETIC PEPTIDE 84.7 pg/mL (0-79)
[2017-05-21] MEDS ORDERED: LASIX IVP ONE ×2 (20:13→20:14)
[2017-05-21 21:21] VITALS: BP 158/82
== END 2017-05-21 22:26 | disposition home or self-care (01) ==
LOC: ER 19:17
DX: I50.9 Heart failure, unspecified (principal); R06.02 Shortness of breath; J81.1 Chronic pulmonary edema
CPT/HCPCS: 36415; 71010; 80053; 83880; 85025; 94640; 96365; 96374; 99283; J1940; J7620

== ENCOUNTER 2017-06-07 11:19 | Inpatient (IN) | payer OTHER, MEDICARE ==
[2017-06-07] MEDS ORDERED: ZOSYN VIAL 4.5 GM IV SCH (12:59)
[2017-06-07] MEDS: DUONEB 0.5 MG/3 MG NEB SCH ×3 (13:33→21:24)
[2017-06-07] MEDS ORDERED: NS 1/2 1000 ML IV 1,000 ML IV ONE (13:38)
[2017-06-07] MEDS ORDERED: NS 100 ML IV 100 ML IV ONE (13:40)
[2017-06-07 13:49] LABS: BASOPHILS # (AUTO) 0.2 X10^3/uL (0.0-0.1); BASOPHILS % (AUTO) 1.1 % (0.2-1.0); EOSINOPHILS # (AUTO) 0.5 x10^3/uL (0.0-0.2); EOSINOPHILS % (AUTO) 3.3 % (0.9-2.9); HEMATOCRIT 30.2 % (36.0-47.0); HEMOGLOBIN 9.8 g/dL (12.0-16.0); LYMPHOCYTES # (AUTO) 2.8 X10^3/uL (1.3-2.9); LYMPHOCYTES % (AUTO) 19.2 % (21.0-51.0); MEAN CORPUSCULAR HEMOGLOBIN 26.4 pg (27.0-34.0); MEAN CORPUSCULAR HGB CONC 32.4 g/dL (33.0-35.0); MEAN CORPUSCULAR VOLUME 81.5 fL (80.0-100.0); MEAN PLATELET VOLUME 8.6 fL (7.4-11.0); MONOCYTES # (AUTO) 1.1 x10^3/uL (0.3-0.8); MONOCYTES % (AUTO) 7.3 % (0.0-13.0); NEUTROPHILS % (AUTO) 69.1 % (42.0-75.0); PLATELET COUNT 368 X10^3/uL (150.0-450.0); RED BLOOD COUNT 3.71 X10^6/uL (3.5-5.4); RED CELL DISTRIBUTION WIDTH 16.1 % (11.6-16.5); WHITE BLOOD COUNT 14.5 X10^3/uL (3.6-10.0)
[2017-06-07] MEDS: CIPRO IV 400 MG PREMIX* 400 MG/200 ML IV.SOLN. IV SCH ×2 (13:50→20:11)
[2017-06-07] MEDS: NS 1/2 1000 ML IV 1,000 ML IV SCH (13:51)
[2017-06-07] MEDS: ROBITUSSIN DM PO SCH ×3 (13:51→20:11)
[2017-06-07 14:10] LABS: ALANINE AMINOTRANSFERASE 19 Units/L (12-78); ALBUMIN 3.4 g/dL (3.4-5.0); ALKALINE PHOSPHATASE 71 Units/L (46-116); ASPARTATE AMINO TRANSFERASE 23 Units/L (15-37); BLOOD UREA NITROGEN 15 mg/dL (7-18); CALCIUM 9.6 mg/dL (8.5-10.1); CARBON DIOXIDE 30.4 mmol/L (21-32); CHLORIDE 101 mmol/L (98-107); COR NA(FOR HYPERGLY) 144 mmol/L (136-145); CREATININE 1.22 mg/dL (0.55-1.02); SODIUM 142 mmol/L (136-145); TOTAL PROTEIN 7.9 g/dL (6.4-8.2); eGFR BLACK RACES 56 (>60); eGFR NON BLACK RACES 46 (>60)
[2017-06-07] MEDS: ZOSYN VIAL 4.5 GM 4.5 GM in NS 100 ML IV 100 ML IV SCH ×2 (14:30→21:29)
--- NOTE | 2017-06-07 14:56 | RAD ---
Examination: Chest, PA and lateral views History: SOB and palpitations Comparison reference: 05/21/2017 Findings: Continued normal heart size with AICD. There is now identified a noncalcified soft tissue m ass 3.4 cm in diameter in the right lower lung. The hilar structures are prominent and lobulated. The re is no evidence for pleural fluid. Impression: Soft tissue mass right lower lung with probable bilateral hilar adenopathy. The findings may be inflammatory or neoplastic. Chest CT is recommended. Reported By:
[2017-06-07 14:57] VITALS: BMI 27.3
[2017-06-07] MEDS: TUSSIONEX PENNKINETIC SUSP PO PRN (20:11)
--- NOTE | 2017-06-07 20:13 | DR.UPDATE ---
H&P Update History and Physical Update: WAS SEEN TODAY IN THE OFFICE. A H&P WAS COMPLETED PRIOR TO ADMISSION. PATIENT HAS BEEN SEEN AND EXAMINED WITH NO CHANGES NOTED TO H&P. Changes noted: NO Yes with the following:
[2017-06-07] MEDS: PULMICORT NEB TX 0.5 MG NEB SCH (21:24)
[2017-06-08] MEDS: DUONEB 0.5 MG/3 MG NEB SCH ×6 (00:33→20:56)
[2017-06-08] MEDS: NS 1/2 1000 ML IV 1,000 ML IV SCH (05:54)
[2017-06-08] MEDS: ZOSYN VIAL 4.5 GM 4.5 GM in NS 100 ML IV 100 ML IV SCH (05:54)
[2017-06-08 06:10] LABS: BASOPHILS # (AUTO) 0.1 X10^3/uL (0.0-0.1); BASOPHILS % (AUTO) 0.5 % (0.2-1.0); EOSINOPHILS # (AUTO) 0.6 x10^3/uL (0.0-0.2); EOSINOPHILS % (AUTO) 3.2 % (0.9-2.9); HEMATOCRIT 29.4 % (36.0-47.0); HEMOGLOBIN 9.5 g/dL (12.0-16.0); LYMPHOCYTES # (AUTO) 4.5 X10^3/uL (1.3-2.9); LYMPHOCYTES % (AUTO) 25.9 % (21.0-51.0); MEAN CORPUSCULAR HEMOGLOBIN 26.3 pg (27.0-34.0); MEAN CORPUSCULAR HGB CONC 32.4 g/dL (33.0-35.0); MEAN CORPUSCULAR VOLUME 81.2 fL (80.0-100.0); MEAN PLATELET VOLUME 8.5 fL (7.4-11.0); MONOCYTES # (AUTO) 1.5 x10^3/uL (0.3-0.8); MONOCYTES % (AUTO) 8.5 % (0.0-13.0); NEUTROPHILS # (AUTO) 10.8 x10^3/uL (2.2-4.8); NEUTROPHILS % (AUTO) 61.9 % (42.0-75.0); PLATELET COUNT 358 X10^3/uL (150.0-450.0); RED BLOOD COUNT 3.63 X10^6/uL (3.5-5.4); RED CELL DISTRIBUTION WIDTH 16.1 % (11.6-16.5); WHITE BLOOD COUNT 17.5 X10^3/uL (3.6-10.0)
[2017-06-08 06:20] LABS: ALANINE AMINOTRANSFERASE 20 Units/L (12-78); ALBUMIN 3.3 g/dL (3.4-5.0); ALKALINE PHOSPHATASE 66 Units/L (46-116); ASPARTATE AMINO TRANSFERASE 27 Units/L (15-37); BLOOD UREA NITROGEN 11 mg/dL (7-18); CALCIUM 9.5 mg/dL (8.5-10.1); CARBON DIOXIDE 29.3 mmol/L (21-32); CHLORIDE 100 mmol/L (98-107); COR CA(FOR HYPOALB) 10.1 mg/dL (8.5-10.1); COR NA(FOR HYPERGLY) 142 mmol/L (136-145); CREATININE 1.12 mg/dL (0.55-1.02); SODIUM 140 mmol/L (136-145); eGFR BLACK RACES > 60 (>60); eGFR NON BLACK RACES 51 (>60)
[2017-06-08] MEDS ORDERED: NS 50 ML IV 50 ML IV ONE ×2 (08:24→08:39)
[2017-06-08] MEDS: PULMICORT NEB TX 0.5 MG NEB SCH ×2 (09:37→20:56)
[2017-06-08] MEDS: ROBITUSSIN DM PO SCH ×4 (09:55→21:37)
[2017-06-08] MEDS: CIPRO IV 400 MG PREMIX* 400 MG/200 ML IV.SOLN. IV SCH ×2 (09:56→21:32)
[2017-06-08] MEDS: TUSSIONEX PENNKINETIC SUSP PO PRN (11:51)
[2017-06-08] MEDS ORDERED: DUONEB 0.5 MG/3 MG NEB SCH (15:00)
[2017-06-08] MEDS ORDERED: METFORMIN HCL PO SCH (15:00)
[2017-06-08] MEDS ORDERED: UBIDECARENONE 100 MG PO SCH (15:00)
[2017-06-08] MEDS ORDERED: PATIENT'S HOME MEDICATION (Naproxen [Naproxen] 1 TAB) PO SCH (15:00)
[2017-06-08] MEDS ORDERED: PATIENT'S HOME MEDICATION (Budesonide-Formoterol 2 PUFF) INH SCH (15:00)
[2017-06-08] MEDS: ZOSYN VIAL 2.25 GM 2.25 GM in NS 100 ML IV 100 ML IV SCH ×2 (15:34→21:34)
[2017-06-08] MEDS: LANOXIN PO SCH (16:31)
[2017-06-08] MEDS: TESSALON PERLES PO PRN (16:31)
[2017-06-08] MEDS: PROTONIX TAB 40 MG PO SCH (16:33)
[2017-06-08] MEDS: PAXIL PO SCH (16:33)
[2017-06-08] MEDS: ZyrTEC TAB 10 MG PO SCH (16:33)
[2017-06-08] MEDS: ALDACTONE TAB 25 MG PO SCH (16:33)
[2017-06-08] MEDS: COREG TAB 12.5 MG PO SCH ×2 (16:33→21:37)
[2017-06-08] MEDS: NEURONTIN CAP 300 MG PO SCH ×2 (16:34→21:36)
[2017-06-08] MEDS: PREDNISONE TAB 10 MG PO SCH (16:34)
[2017-06-08] MEDS: METHYLSULFONYLMETHANE 1000 MG PO SCH (16:35)
[2017-06-08] MEDS ORDERED: LASIX PO ONE (16:39)
[2017-06-08] MEDS ORDERED: PATIENT'S HOME MEDICATION (Montelukast Sodium [Montelukast Sodium] 1 TAB) PO SCH (21:00)
[2017-06-08] MEDS: GLUCOPHAGE XR PO SCH (21:37)
[2017-06-08] MEDS: ZESTRIL TAB 10 MG PO SCH (21:37)
[2017-06-08] MEDS: SINGULAIR TAB 10 MG PO SCH (21:37)
[2017-06-08] MEDS: NAPROSYN PO SCH (21:37)
[2017-06-08] MEDS ORDERED: NS 1/2 1000 ML IV 1,000 ML IV ONE (22:43)
[2017-06-09] MEDS: DUONEB 0.5 MG/3 MG NEB SCH ×6 (00:41→21:05)
[2017-06-09 05:55] LABS: BASOPHILS # (AUTO) 0.1 X10^3/uL (0.0-0.1); BASOPHILS % (AUTO) 0.6 % (0.2-1.0); EOSINOPHILS # (AUTO) 0.4 x10^3/uL (0.0-0.2); HEMATOCRIT 24.9 % (36.0-47.0); HEMOGLOBIN 8.1 g/dL (12.0-16.0); LYMPHOCYTES # (AUTO) 4.1 X10^3/uL (1.3-2.9); LYMPHOCYTES % (AUTO) 22.3 % (21.0-51.0); MEAN CORPUSCULAR HEMOGLOBIN 26.5 pg (27.0-34.0); MEAN CORPUSCULAR HGB CONC 32.5 g/dL (33.0-35.0); MEAN CORPUSCULAR VOLUME 81.6 fL (80.0-100.0); MEAN PLATELET VOLUME 9.1 fL (7.4-11.0); MONOCYTES # (AUTO) 1.7 x10^3/uL (0.3-0.8); MONOCYTES % (AUTO) 9.5 % (0.0-13.0); NEUTROPHILS % (AUTO) 65.6 % (42.0-75.0); PLATELET COUNT 311 X10^3/uL (150.0-450.0); RED BLOOD COUNT 3.05 X10^6/uL (3.5-5.4); RED CELL DISTRIBUTION WIDTH 15.7 % (11.6-16.5); WHITE BLOOD COUNT 18.2 X10^3/uL (3.6-10.0)
[2017-06-09 06:30] LABS: PLATELET MORPHOLOGY COMMENT NORMAL (NORMAL)
[2017-06-09] MEDS: ZOSYN VIAL 2.25 GM 2.25 GM in NS 100 ML IV 100 ML IV SCH ×3 (06:46→22:01)
[2017-06-09] MEDS: NEURONTIN CAP 300 MG PO SCH ×3 (06:46→22:01)
[2017-06-09 07:18] LABS: ALBUMIN 2.8 g/dL (3.4-5.0); CARBON DIOXIDE 28.1 mmol/L (21-32); CREATININE 1.32 mg/dL (0.55-1.02); TOTAL PROTEIN 6.9 g/dL (6.4-8.2)
--- NOTE | 2017-06-09 08:56 | CT ---
HISTORY: Pneumonia and shortness of breath. Study: CT chest with contrast Comparison: Chest x-ray dated June 07, 2017. Technique: Multiple axial images of the chest were obtained from the thoracic inlet to the upper abdo men after the administration of IV contrast. Dose reduction techniques including Automated Exposure C ontrol (AEC) and adjustment of mA and kV were utilized. Findings: Extensive mediastinal/hilar adenopathy, the largest measuring 4.0 x 3.4 x 4.3 cm in greatest dimensio n at the level of the lang. Many of these abnormal lymph nodes demonstrate central necrosis. Coron lisa artery and thoracic artery calcifications. Left chest pacemaker. No significant pericardial effus ion. No thoracic aortic dilatation. The central pulmonary arterial system does not demonstrate centr al filling defects to suggest pulmonary emboli. Multiple masses along the branches of the right mainstem bronchus, right middle lobe bronchus, and ri ght lower lobe bronchus. The largest measures 4.4 x 3.2 x 3.1 cm along the right lower lobe bronchus. Multiple smaller satellite pulmonary nodules and ground-glass opacities are seen throughout the righ t lung. No obvious left pulmonary nodules or masses. No focal consolidation, pleural effusion, or pne umothorax. Multiple ill-defined lesions are seen within the liver and may represent metastatic diseas e. Punctate nonobstructing nephrolith within the right inferior renal pole. Remaining upper abdomen i s unremarkable. Degenerative changes of the spine. No aggressive osseous lesions. IMPRESSION: 1. Constellation of findings as above likely representing lung cancer with abnormal appearing medias tinal/hilar adenopathy and metastatic disease to the liver. Recommend PET-CT, soft tissue sampling, a nd pulmonary consultation. 2. Other chronic findings as above. Reported By:
[2017-06-09] MEDS: PULMICORT NEB TX 0.5 MG NEB SCH ×2 (09:17→21:05)
[2017-06-09] MEDS: COREG TAB 12.5 MG PO SCH ×2 (10:03→22:01)
[2017-06-09] MEDS: PREDNISONE TAB 10 MG PO SCH (10:03)
[2017-06-09] MEDS: ZyrTEC TAB 10 MG PO SCH (10:03)
[2017-06-09] MEDS: NAPROSYN PO SCH ×2 (10:03→22:01)
[2017-06-09] MEDS: PAXIL PO SCH (10:04)
[2017-06-09] MEDS: PROTONIX TAB 40 MG PO SCH (10:04)
[2017-06-09] MEDS: LASIX PO SCH (10:05)
[2017-06-09] MEDS: METHYLSULFONYLMETHANE 1000 MG PO SCH (10:05)
[2017-06-09] MEDS: CIPRO IV 400 MG PREMIX* 400 MG/200 ML IV.SOLN. IV SCH ×2 (10:06→21:57)
[2017-06-09] MEDS: ALDACTONE TAB 25 MG PO SCH (10:06)
[2017-06-09] MEDS: LANOXIN PO SCH (10:08)
[2017-06-09] MEDS: ROBITUSSIN DM PO SCH ×4 (10:13→22:00)
[2017-06-09] MEDS: TUSSIONEX PENNKINETIC SUSP PO PRN (13:10)
[2017-06-09] MEDS: TESSALON PERLES PO PRN ×2 (13:58→22:01)
[2017-06-09] MEDS: FLONASE NASAL SPRAY ENOSTRIL SCH (14:55)
[2017-06-09] MEDS: SINGULAIR TAB 10 MG PO SCH (22:00)
[2017-06-09] MEDS: ZESTRIL TAB 10 MG PO SCH (22:00)
[2017-06-09] MEDS: XANAX PO PRN (22:01)
[2017-06-09] MEDS: NS 1/2 1000 ML IV 1,000 ML IV SCH (22:02)
[2017-06-10] MEDS: DUONEB 0.5 MG/3 MG NEB SCH ×6 (00:55→21:19)
[2017-06-10 05:18] LABS: BASOPHILS # (AUTO) 0.1 X10^3/uL (0.0-0.1); BASOPHILS % (AUTO) 0.7 % (0.2-1.0); EOSINOPHILS # (AUTO) 0.7 x10^3/uL (0.0-0.2); EOSINOPHILS % (AUTO) 5.6 % (0.9-2.9); HEMOGLOBIN 7.9 g/dL (12.0-16.0); LYMPHOCYTES # (AUTO) 2.4 X10^3/uL (1.3-2.9); LYMPHOCYTES % (AUTO) 18.3 % (21.0-51.0); MEAN CORPUSCULAR HEMOGLOBIN 26.6 pg (27.0-34.0); MEAN CORPUSCULAR HGB CONC 32.7 g/dL (33.0-35.0); MEAN CORPUSCULAR VOLUME 81.4 fL (80.0-100.0); MEAN PLATELET VOLUME 8.3 fL (7.4-11.0); MONOCYTES # (AUTO) 1.4 x10^3/uL (0.3-0.8); NEUTROPHILS # (AUTO) 8.4 x10^3/uL (2.2-4.8); NEUTROPHILS % (AUTO) 64.4 % (42.0-75.0); PLATELET COUNT 290 X10^3/uL (150.0-450.0); RED BLOOD COUNT 2.95 X10^6/uL (3.5-5.4); RED CELL DISTRIBUTION WIDTH 15.7 % (11.6-16.5); WHITE BLOOD COUNT 13.1 X10^3/uL (3.6-10.0)
[2017-06-10] MEDS ORDERED: NS 1/2 1000 ML IV 1,000 ML IV ONE (05:26)
[2017-06-10 05:28] LABS: ALBUMIN 2.8 g/dL (3.4-5.0); CARBON DIOXIDE 30.1 mmol/L (21-32); CREATININE 1.2 mg/dL (0.55-1.02); TOTAL PROTEIN 6.9 g/dL (6.4-8.2)
[2017-06-10 05:40] LABS: HYPOCHROMASIA SLIGHT; PLATELET MORPHOLOGY COMMENT NORMAL (NORMAL)
[2017-06-10] MEDS: NEURONTIN CAP 300 MG PO SCH ×3 (05:43→21:41)
[2017-06-10] MEDS: NS 1/2 1000 ML IV 1,000 ML IV SCH (05:43)
[2017-06-10] MEDS: ZOSYN VIAL 2.25 GM 2.25 GM in NS 100 ML IV 100 ML IV SCH ×3 (05:46→21:40)
[2017-06-10] MEDS: CIPRO IV 400 MG PREMIX* 400 MG/200 ML IV.SOLN. IV SCH (08:17)
[2017-06-10] MEDS: ZyrTEC TAB 10 MG PO SCH (08:17)
[2017-06-10] MEDS: COREG TAB 12.5 MG PO SCH ×2 (08:18→21:42)
[2017-06-10] MEDS: ALDACTONE TAB 25 MG PO SCH (08:18)
[2017-06-10] MEDS: PREDNISONE TAB 10 MG PO SCH (08:18)
[2017-06-10] MEDS: PULMICORT NEB TX 0.5 MG NEB SCH ×2 (08:18→21:19)
[2017-06-10] MEDS: PAXIL PO SCH (08:18)
[2017-06-10] MEDS: ROBITUSSIN DM PO SCH ×4 (08:18→21:42)
[2017-06-10] MEDS: NAPROSYN PO SCH ×2 (08:18→21:41)
[2017-06-10] MEDS: LASIX PO SCH (08:19)
[2017-06-10] MEDS: PROTONIX TAB 40 MG PO SCH (08:19)
[2017-06-10] MEDS: METHYLSULFONYLMETHANE 1000 MG PO SCH (08:20)
[2017-06-10] MEDS: FLONASE NASAL SPRAY ENOSTRIL SCH (08:23)
[2017-06-10] MEDS: LANOXIN PO SCH (08:51)
--- NOTE | 2017-06-10 09:28 | PCM.PROG ---
Progress Note - Progress Note for Day of Date: 06/10/17 - Subjective Subjective: WAS A DIRECT ADMISSION FROM THE OFFICE FOR PNEUMONIA. CHEST XRAY REVEALED CONSOLIDATION IN THE RIGHT LOWER LUNG. A CT WAS OBTAINED AND REPORTED CONSTELLATION OF FINDINGS LIKELY REPRESENTING LUNG CANCER WITH ABNORMAL APPEARING MEDIATINAL/HILAR ADENOPATHY AND METASTATIC DISEASE TO THE LIVER. PET-CT RECOMMENDED. SHE CURRENTLY USES IN [place]. WE WILL ARRANGE FOR FOLLOW UP WITH HIM AFTER DISCHARGE. FINDINGS WERE DISCUSSED WITH PATIENT BY OVER THE WEEKEND. TODAY, PATIENT IS ALERT AND ORIENTED, LYING IN BED ON MORNING ROUNDS. SHE CONTINUES WITH COMPLAINTS OF SHORTNESS OF BREATH, COUGH, AND FEELING CONGESTED. ON EXAMINATION, LUNG SOUNDS ARE NOTED WITH RHONCHI BILATERALLY TO AUSCULTATION. LUNG SOUNDS ARE DIMINISHED. ABDOMEN IS ROUND, SOFT, AND NON-TENDER WITH NORMAL BOWEL SOUNDS NOTED IN ALL QUADRANTS. THERE IS EDEMA NOTED TO BILATERAL LOWER EXTREMITIES. SHE HAS A HISTORY OF HEART FAILURE. SHE IS CURRENTLY UTILIZING OXYGEN VIA NASAL CANNUAL AT 2L/MIN. HER VITALS THIS MORNING ARE 97.6-78-22-99%-103/53. ABNORMAL LAB VALUES INCLUDE THE FOLLOWING: WBC 13.1, RBC 2.95, HGB 7.9, HCT 24.0, CREATININE 1.20, GFR 47, GLUCOSE 159, ALBUMIN 2.8, A/G RATIO 0.7. PRELIMINARY SPUTUM RESULTS REPORTS GRAM NEGATIVE RODS WITH NORMAL JOE AT DAY 2. PRELIMINARY BLOOD CULTURES REPORT NO GROWTH. TODAY, WE WILL CONTINUE WITH CURRENT PLAN OF CARE, BEING THAT PATIENT CONTINUES TO FEEL ILL. WE PLAN TO FOLLOW UP WITH AM LABS AND CHEST XRAY AND CONTINUE TO MONITOR PATIENT. - Past Medical Family Social History Past Med/Fam/Surg Hx: No changes since H&P Allergies: Allergies No Known Drug Allergies Allergy (Verified 02/04/17 16:51) - Review of Systems ROS: No change since H&P - Vital Signs and I&O's Vital Signs: Temperature 97.6 F Pulse Rate [Right Brachial] 81 Pulse Rate [Left Brachial] 78 Pulse Rate 78 Respiratory Rate 22 Blood Pressure [Left Arm] 103/53 Blood Pressure [Right Arm] 157/66 Blood Pressure 158/82 O2 Sat by Pulse Oximetry 99 Intake and Output: Intake & Output 06/07/17 06/08/17 06/09/17 06/10/17 11:59 11:59 11:59 11:59 Intake Total 1890 7480 [id number] Output Total 400 Balance 1890 3372 2792 - Physical Exam Oriented: Normal Eyes: Normal Ear: Normal Nose: Other (NASAL CONGESTION ) Throat: Normal Respiratory: Right, Left, Generalized, Diminished, Rhonchi Cardiovascular: Normal : Normal Auscultation: Bowel Sounds: Normal Palpation: Normal Tenderness: Normal Skin: Normal Musculoskeletal: Normal Psychiatric: Normal Mood Description: Calm Affect: Normal Speech Pattern: Clear, Appropriate - Laboratory and Diagnostics Result Diagrams: 06/10/17 05:00 06/10/17 05:00 Labs: 06/07/17 13:29 Blood Blood Culture - Preliminary 06/07/17 13:18 Blood Blood Culture - Preliminary 06/07/17 13:43 Sputum - Expectorated Sputum Sputum Culture - Preliminary 06/07/17 13:43 Sputum - Expectorated Sputum - Final Laboratory WBC 13.1 X10^3/uL (3.6-10.0) H 06/10/17 05:00 RBC 2.95 X10^6/uL (3.5-5.4) L 06/10/17 05:00 Hgb 7.9 g/dL (12.0-16.0) L 06/10/17 05:00 Hct 24.0 % (36.0-47.0) L 06/10/17 05:00 MCV 81.4 fL (80.0-100.0) 06/10/17 05:00 MCH 26.6 pg (27.0-34.0) L 06/10/17 05:00 MCHC 32.7 g/dL (33.0-35.0) L 06/10/17 05:00 RDW 15.7 % (11.6-16.5) 06/10/17 05:00 Plt Count 290 X10^3/uL (150.0-450.0) 06/10/17 05:00 Plt Count Comment Adequate (ADEQUATE) 06/10/17 05:00 MPV 8.3 fL (7.4-11.0) 06/10/17 05:00 Neut % 64.4 % (42.0-75.0) 06/10/17 05:00 Lymph % 18.3 % (21.0-51.0) L 06/10/17 05:00 [place] % 11.0 % (0.0-13.0) 06/10/17 05:00 Eos % 5.6 % (0.9-2.9) H 06/10/17 05:00 Baso % 0.7 % (0.2-1.0) 06/10/17 05:00 Neut # 8.4 x10^3/uL (2.2-4.8) H 06/10/17 05:00 Lymph # 2.4 X10^3/uL (1.3-2.9) 06/10/17 05:00 [place] # 1.4 x10^3/uL (0.3-0.8) H 06/10/17 05:00 Eos # 0.7 x10^3/uL (0.0-0.2) H 06/10/17 05:00 Baso # 0.1 X10^3/uL (0.0-0.1) 06/10/17 05:00 Absolute Nucleated RBC 0.0 /100WBC 06/10/17 05:00 Plt Morphology Comment Normal (NORMAL) 06/10/17 05:00 RBC Morphology Abnormal (NORMAL) A 06/10/17 05:00 Hypochromasia Slight A 06/10/17 05:00 Sodium 137 mmol/L (136-145) 06/10/17 05:00 Corrected Sodium 138 mmol/L (136-145) 06/10/17 05:00 Potassium 4.0 mmol/L (3.5-5.1) 06/10/17 05:00 Chloride 100 mmol/L (98-107) 06/10/17 05:00 Carbon Dioxide 30.1 mmol/L (21-32) 06/10/17 05:00 BUN 17 mg/dL (7-18) 06/10/17 05:00 Creatinine 1.20 mg/dL (0.55-1.02) H 06/10/17 05:00 Est GFR (MDRD) Af Amer 57 (>60) L 06/10/17 05:00 Est GFR (MDRD) Non-Af 47 (>60) L 06/10/17 05:00 Glucose 159 mg/dL (65-99) H 06/10/17 05:00 POC Glucose (mg/dL) 163 mg/dL (65-99) H 06/10/17 05:36 Calcium 9.0 mg/dL (8.5-10.1) 06/10/17 05:00 Corrected Calcium 10.0 mg/dL (8.5-10.1) 06/10/17 05:00 Total Bilirubin 0.30 mg/dL (0.2-1.0) 06/10/17 05:00 AST 30 Units/L (15-37) 06/10/17 05:00 ALT 24 Units/L (12-78) 06/10/17 05:00 Alkaline Phosphatase 64 Units/L (46-116) 06/10/17 05:00 Total Protein 6.9 g/dL (6.4-8.2) 06/10/17 05:00 Albumin 2.8 g/dL (3.4-5.0) L 06/10/17 05:00 Globulin 4.1 g/dL (2.5-4.5) 06/10/17 05:00 Albumin/Globulin Ratio 0.7 Ratio (1.1-2.1) L 06/10/17 05:00 Digoxin 0.58 ng/mL (0.9-2) L 06/10/17 05:00 - Plan (1) Pneumonia Status: Acute Qualifiers: Pneumonia type: due to unspecified organism Laterality: right Lung location: lower lobe of lung Qualified Code(s): J18.1 - Lobar pneumonia, unspecified organism Plan: CONTINUE PNEUMONIA PROTOCOL, CONTINUE CIPRO, CONTINUE ZOSYN, CONTINUE DUONEBS, CONTINUE TO MONITOR LABS AND CHEST XRAY (2) Lung cancer, primary, with metastasis from lung to other site Status: Acute Qualifiers: Laterality: right Qualified Code(s): C34.91 - Malignant neoplasm of unspecified part of right bronchus or lung Plan: FOLLOW UP WITH , [facility] FOR FURTHER WORK-UP AFTER DISCHARGE.
[2017-06-10] MEDS: SNACK - Diabetic Appropriate PO SCH ×2 (10:13→21:42)
[2017-06-10] MEDS: TESSALON PERLES PO PRN ×2 (13:22→21:41)
[2017-06-10] MEDS: TUSSIONEX PENNKINETIC SUSP PO PRN (13:22)
[2017-06-10] MEDS ORDERED: ZOSYN VIAL 2.25 GM IV ONE (21:21)
[2017-06-10] MEDS ORDERED: NS 100 ML IV 100 ML IV ONE (21:22)
[2017-06-10] MEDS: ZESTRIL TAB 10 MG PO SCH (21:41)
[2017-06-10] MEDS: XANAX PO PRN (21:41)
[2017-06-10] MEDS: SINGULAIR TAB 10 MG PO SCH (21:42)
[2017-06-11] MEDS: DUONEB 0.5 MG/3 MG NEB SCH ×6 (01:00→20:08)
[2017-06-11] MEDS ORDERED: ZOSYN VIAL 2.25 GM IV ONE (06:02)
[2017-06-11] MEDS ORDERED: NS 100 ML IV 100 ML IV ONE (06:02)
[2017-06-11 06:04] LABS: ALANINE AMINOTRANSFERASE 24 Units/L (12-78); ALBUMIN 2.6 g/dL (3.4-5.0); ALKALINE PHOSPHATASE 66 Units/L (46-116); ASPARTATE AMINO TRANSFERASE 24 Units/L (15-37); BLOOD UREA NITROGEN 12 mg/dL (7-18); CALCIUM 9.1 mg/dL (8.5-10.1); CARBON DIOXIDE 31.2 mmol/L (21-32); CHLORIDE 104 mmol/L (98-107); COR CA(FOR HYPOALB) 10.2 mg/dL (8.5-10.1); COR NA(FOR HYPERGLY) 143 mmol/L (136-145); CREATININE 0.93 mg/dL (0.55-1.02); DIGOXIN 0.54 ng/mL (0.9-2); SODIUM 141 mmol/L (136-145); TOTAL PROTEIN 6.8 g/dL (6.4-8.2); eGFR BLACK RACES > 60 (>60); eGFR NON BLACK RACES > 60 (>60)
[2017-06-11 06:06] LABS: BASOPHILS # (AUTO) 0.1 X10^3/uL (0.0-0.1); BASOPHILS % (AUTO) 0.6 % (0.2-1.0); EOSINOPHILS # (AUTO) 0.4 x10^3/uL (0.0-0.2); EOSINOPHILS % (AUTO) 3.7 % (0.9-2.9); HEMOGLOBIN 7.5 g/dL (12.0-16.0); LYMPHOCYTES # (AUTO) 2.7 X10^3/uL (1.3-2.9); MEAN CORPUSCULAR HEMOGLOBIN 26.6 pg (27.0-34.0); MEAN CORPUSCULAR HGB CONC 32.8 g/dL (33.0-35.0); MEAN CORPUSCULAR VOLUME 81.1 fL (80.0-100.0); MEAN PLATELET VOLUME 8.7 fL (7.4-11.0); MONOCYTES # (AUTO) 1.2 x10^3/uL (0.3-0.8); MONOCYTES % (AUTO) 10.3 % (0.0-13.0); NEUTROPHILS # (AUTO) 6.9 x10^3/uL (2.2-4.8); NEUTROPHILS % (AUTO) 61.4 % (42.0-75.0); PLATELET COUNT 313 X10^3/uL (150.0-450.0); RED BLOOD COUNT 2.83 X10^6/uL (3.5-5.4); RED CELL DISTRIBUTION WIDTH 15.8 % (11.6-16.5); WHITE BLOOD COUNT 11.2 X10^3/uL (3.6-10.0)
[2017-06-11] MEDS: NEURONTIN CAP 300 MG PO SCH ×3 (06:14→21:28)
[2017-06-11] MEDS: ZOSYN VIAL 2.25 GM 2.25 GM in NS 100 ML IV 100 ML IV SCH (06:15)
[2017-06-11 06:51] LABS: HYPOCHROMASIA SLIGHT; PLATELET MORPHOLOGY COMMENT NORMAL (NORMAL)
--- NOTE | 2017-06-11 06:55 | RAD ---
HISTORY: Palpitations Study: Chest AP portable Comparison: 06/07/2017 chest x-ray, 06/08/[address] with contrast Findings: There is a pacemaker present on the left. The heart is within normal limits in size. Bilateral hilar enlargement is identified consistent with the patient's known bilateral hilar adenopathy. No signific ant change is noted in the previously described 3.4 by 3.9 cm right lower lobe mass. This is felt to represent primary lung malignancy with hilar and mediastinal metastatic adenopathy. The remainder of the lung horan appear clear. These findings are likely superimposed on COPD. The bony thorax is unre markable. IMPRESSION: No change right lower lobe mass lesion, hilar, and mediastinal lymphadenopathy all suggestive of prim lisa lung neoplasm with mediastinal metastatic disease Hyperinflation Reported By:
[2017-06-11] MEDS: ALDACTONE TAB 25 MG PO SCH (08:20)
[2017-06-11] MEDS: PREDNISONE TAB 10 MG PO SCH (08:20)
[2017-06-11] MEDS: ROBITUSSIN DM PO SCH ×4 (08:20→21:29)
[2017-06-11] MEDS: PROTONIX TAB 40 MG PO SCH (08:20)
[2017-06-11] MEDS: COREG TAB 12.5 MG PO SCH ×2 (08:20→21:28)
[2017-06-11] MEDS: NAPROSYN PO SCH ×2 (08:20→21:28)
[2017-06-11] MEDS: ZyrTEC TAB 10 MG PO SCH (08:21)
[2017-06-11] MEDS: LASIX PO SCH (08:21)
[2017-06-11] MEDS: PAXIL PO SCH (08:21)
[2017-06-11] MEDS: LANOXIN PO SCH (08:22)
[2017-06-11] MEDS: FLONASE NASAL SPRAY ENOSTRIL SCH (08:23)
[2017-06-11] MEDS: METHYLSULFONYLMETHANE 1000 MG PO SCH (08:25)
[2017-06-11] MEDS ORDERED: GLUCOPHAGE XR PO ONE (08:32)
[2017-06-11] MEDS: GLUCOPHAGE XR PO SCH ×2 (08:33→21:28)
[2017-06-11] MEDS: PULMICORT NEB TX 0.5 MG NEB SCH ×2 (09:25→20:09)
[2017-06-11] MEDS: SOLU-Medrol 40 MG VIAL IVP SCH ×3 (10:39→21:29)
[2017-06-11] MEDS ORDERED: LASIX IVP ONE (11:47)
--- NOTE | 2017-06-11 12:29 | PCM.PROG ---
Progress Note - Progress Note for Day of Date: 06/11/17 - Subjective Subjective: WAS A DIRECT ADMISSION FROM THE OFFICE FOR PNEUMONIA. CHEST XRAY REVEALED CONSOLIDATION IN THE RIGHT LOWER LUNG. A CT REVEALED LUNG CANCER WITH METASTASIS. TODAY, PATIENT IS ALERT AND ORIENTED, LYING IN BED ON MORNING ROUNDS. SHE CONTINUES WITH COMPLAINTS OF SHORTNESS OF BREATH, COUGH, AND CONGESTION. SHE REPORTS NO IMPROVEMENT IN SYMPTOMS SINCE YESTERDAY. ON EXAMINATION, LUNGS CONTINUE WITH RHONCHI BILATERALLY TO AUSCULTATION. LUNG SOUNDS ARE DIMINISHED. ABDOMEN IS ROUND, SOFT, AND NON-TENDER WITH NORMAL BOWEL SOUNDS NOTED IN ALL QUADRANTS. THERE IS EDEMA NOTED TO BILATERAL LOWER EXTREMITIES. SHE HAS A HISTORY OF HEART FAILURE. SHE IS CURRENTLY UTILIZING OXYGEN VIA NASAL CANNUAL AT 2L/MIN. HER VITALS THIS MORNING ARE 97.7-78-18-97%- 121/50. ABNORMAL LAB VALUES INCLUDE THE FOLLOWING: WBC 11.2, RBC 2.83, HGB 7.5, HCT 23.0, GLUCOSE 181, ALBUMIN 2.6, DIGOXIN 0.54. SPUTUM CULTURE REPORTS GROWTH OF PSEUDOMONAS AERUGINOSA. IT IS SENSITIVE TO ZOSYN, HOWEVER, FORTAZ APPEARS TO BE A BETTER CHOICE, THEREFORE, WE WILL CHANGE TO FORTAZ. PRELIMINARY BLOOD CULTURES REPORT NO GROWTH. WE WILL ALSO ADD SOLU-MEDROL 80MG IV Q8H TODAY. OTHERWISE, WE PLAN TO FOLLOW UP WITH AM LABS AND CHEST XRAY AND CONTINUE TO MONITOR PATIENT. - Past Medical Family Social History Past Med/Fam/Surg Hx: No changes since H&P Allergies: Allergies No Known Drug Allergies Allergy (Verified 02/04/17 16:51) - Review of Systems ROS: No change since H&P - Vital Signs and I&O's Vital Signs: Temperature 97.7 F Pulse Rate [Right Brachial] 78 Pulse Rate [Left Brachial] 81 Pulse Rate 72 Respiratory Rate 18 Blood Pressure [Left Arm] 121/50 Blood Pressure [Right Arm] 157/66 Blood Pressure 158/82 O2 Sat by Pulse Oximetry 97 Intake and Output: Intake & Output 06/09/17 06/10/17 06/11/17 06/12/17 11:59 11:59 11:59 11:59 Intake Total 3484 2792 2820 Output Total 400 2000 Balance 3084 2792 820 - Physical Exam Oriented: Normal Eyes: Normal Ear: Normal Nose: Other (NASAL CONGESTION ) Throat: Normal Respiratory: Right, Left, Generalized, Diminished, Rhonchi Cardiovascular: Normal : Normal Auscultation: Bowel Sounds: Normal Palpation: Normal Tenderness: Normal Skin: Normal Musculoskeletal: Normal Psychiatric: Normal Mood Description: Calm Affect: Normal Speech Pattern: Clear, Appropriate - Laboratory and Diagnostics Result Diagrams: 06/11/17 05:02 06/11/17 05:02 Labs: 06/07/17 13:43 Sputum - Expectorated Sputum Sputum Culture - Final Pseudomonas Aeruginosa 06/07/17 13:43 Sputum - Expectorated Sputum - Final 06/07/17 13:29 Blood Blood Culture - Preliminary 06/07/17 13:18 Blood Blood Culture - Preliminary Laboratory WBC 11.2 X10^3/uL (3.6-10.0) H 06/11/17 05:02 RBC 2.83 X10^6/uL (3.5-5.4) L 06/11/17 05:02 Hgb 7.5 g/dL (12.0-16.0) L 06/11/17 05:02 Hct 23.0 % (36.0-47.0) L 06/11/17 05:02 MCV 81.1 fL (80.0-100.0) 06/11/17 05:02 MCH 26.6 pg (27.0-34.0) L 06/11/17 05:02 MCHC 32.8 g/dL (33.0-35.0) L 06/11/17 05:02 RDW 15.8 % (11.6-16.5) 06/11/17 05:02 Plt Count 313 X10^3/uL (150.0-450.0) 06/11/17 05:02 Plt Count Comment Adequate (ADEQUATE) 06/11/17 05:02 MPV 8.7 fL (7.4-11.0) 06/11/17 05:02 Neut % 61.4 % (42.0-75.0) 06/11/17 05:02 Lymph % 24.0 % (21.0-51.0) 06/11/17 05:02 [place] % 10.3 % (0.0-13.0) 06/11/17 05:02 Eos % 3.7 % (0.9-2.9) H 06/11/17 05:02 Baso % 0.6 % (0.2-1.0) 06/11/17 05:02 Neut # 6.9 x10^3/uL (2.2-4.8) H 06/11/17 05:02 Lymph # 2.7 X10^3/uL (1.3-2.9) 06/11/17 05:02 [place] # 1.2 x10^3/uL (0.3-0.8) H 06/11/17 05:02 Eos # 0.4 x10^3/uL (0.0-0.2) H 06/11/17 05:02 Baso # 0.1 X10^3/uL (0.0-0.1) 06/11/17 05:02 Absolute Nucleated RBC 0.0 /100WBC 06/11/17 05:02 Plt Morphology Comment Normal (NORMAL) 06/11/17 05:02 RBC Morphology Abnormal (NORMAL) A 06/11/17 05:02 Hypochromasia Slight A 06/11/17 05:02 Sodium 141 mmol/L (136-145) 06/11/17 05:02 Corrected Sodium 143 mmol/L (136-145) 06/11/17 05:02 Potassium 4.0 mmol/L (3.5-5.1) 06/11/17 05:02 Chloride 104 mmol/L (98-107) 06/11/17 05:02 Carbon Dioxide 31.2 mmol/L (21-32) 06/11/17 05:02 BUN 12 mg/dL (7-18) 06/11/17 05:02 Creatinine 0.93 mg/dL (0.55-1.02) 06/11/17 05:02 Est GFR (MDRD) Af Amer > 60 (>60) 06/11/17 05:02 Est GFR (MDRD) Non-Af > 60 (>60) 06/11/17 05:02 Glucose 181 mg/dL (65-99) H 06/11/17 05:02 POC Glucose (mg/dL) 210 mg/dL (65-99) H 06/11/17 11:28 Calcium 9.1 mg/dL (8.5-10.1) 06/11/17 05:02 Corrected Calcium 10.2 mg/dL (8.5-10.1) H 06/11/17 05:02 Total Bilirubin 0.20 mg/dL (0.2-1.0) 06/11/17 05:02 AST 24 Units/L (15-37) 06/11/17 05:02 ALT 24 Units/L (12-78) 06/11/17 05:02 Alkaline Phosphatase 66 Units/L (46-116) 06/11/17 05:02 Total Protein 6.8 g/dL (6.4-8.2) 06/11/17 05:02 Albumin 2.6 g/dL (3.4-5.0) L 06/11/17 05:02 Globulin 4.2 g/dL (2.5-4.5) 06/11/17 05:02 Albumin/Globulin Ratio 0.6 Ratio (1.1-2.1) L 06/11/17 05:02 Digoxin 0.54 ng/mL (0.9-2) L 06/11/17 05:02 - Plan (1) Pneumonia Status: Acute Qualifiers: Pneumonia type: due to Pseudomonas Laterality: right Lung location: lower lobe of lung Qualified Code(s): J15.1 - Pneumonia due to Pseudomonas Plan: CONTINUE PNEUMONIA PROTOCOL, DISCONTINUE CIPRO, DISCONTINUE ZOSYN, START FORTAZ 1GM IV Q8H, CONTINUE DUONEBS, CONTINUE TO MONITOR LABS AND CHEST XRAY (2) Lung cancer, primary, with metastasis from lung to other site Status: Acute Qualifiers: Laterality: right Qualified Code(s): C34.91 - Malignant neoplasm of unspecified part of right bronchus or lung Plan: FOLLOW UP WITH , PHOTOVOLTAIC SUBCONTRACTOR FOR FURTHER WORK-UP AFTER DISCHARGE.
[2017-06-11] MEDS ORDERED: FORTAZ or TAZICEF INJ 2 GM in NS 50 ML IV + SPIKE MINIBAG* 50 ML IV SCH (13:00)
[2017-06-11] MEDS: FORTAZ or TAZICEF INJ 2 GM in NS 100 ML IV + SPIKE MINIBAG* 100 ML IV SCH ×2 (13:41→21:30)
[2017-06-11] MEDS ORDERED: FORTAZ OR TAZICEF IV SCH (14:00)
[2017-06-11] MEDS ORDERED: NS IV SCH (14:00)
[2017-06-11] MEDS: ZESTRIL TAB 10 MG PO SCH (21:28)
[2017-06-11] MEDS: SINGULAIR TAB 10 MG PO SCH (21:28)
[2017-06-11] MEDS: SNACK - Diabetic Appropriate PO SCH (21:29)
[2017-06-11] MEDS: TUSSIONEX PENNKINETIC SUSP PO PRN (23:23)
[2017-06-11] MEDS: TESSALON PERLES PO PRN (23:23)
[2017-06-12] MEDS: DUONEB 0.5 MG/3 MG NEB SCH ×6 (00:55→20:22)
[2017-06-12] MEDS ORDERED: NS 1/2 1000 ML IV 1,000 ML IV ONE (05:05)
[2017-06-12] MEDS: NS 1/2 1000 ML IV 1,000 ML IV SCH ×2 (05:48→19:00)
[2017-06-12] MEDS: SOLU-Medrol 40 MG VIAL IVP SCH ×3 (05:48→21:18)
[2017-06-12] MEDS: FORTAZ or TAZICEF INJ 2 GM in NS 100 ML IV + SPIKE MINIBAG* 100 ML IV SCH ×3 (05:48→21:18)
[2017-06-12] MEDS: NEURONTIN CAP 300 MG PO SCH ×3 (05:49→21:18)
[2017-06-12 05:50] LABS: BASOPHILS % (AUTO) 0.1 % (0.2-1.0); EOSINOPHILS % (AUTO) 0.1 % (0.9-2.9); HEMATOCRIT 25.1 % (36.0-47.0); HEMOGLOBIN 8.2 g/dL (12.0-16.0); LYMPHOCYTES # (AUTO) 2.1 X10^3/uL (1.3-2.9); LYMPHOCYTES % (AUTO) 11.8 % (21.0-51.0); MEAN CORPUSCULAR HGB CONC 32.4 g/dL (33.0-35.0); MEAN CORPUSCULAR VOLUME 80.1 fL (80.0-100.0); MEAN PLATELET VOLUME 8.7 fL (7.4-11.0); MONOCYTES # (AUTO) 0.6 x10^3/uL (0.3-0.8); MONOCYTES % (AUTO) 3.1 % (0.0-13.0); NEUTROPHILS # (AUTO) 15.3 x10^3/uL (2.2-4.8); NEUTROPHILS % (AUTO) 84.9 % (42.0-75.0); PLATELET COUNT 366 X10^3/uL (150.0-450.0); RED BLOOD COUNT 3.14 X10^6/uL (3.5-5.4); RED CELL DISTRIBUTION WIDTH 15.7 % (11.6-16.5); WHITE BLOOD COUNT 18.1 X10^3/uL (3.6-10.0)
[2017-06-12 06:47] LABS: ALANINE AMINOTRANSFERASE 30 Units/L (12-78); ALBUMIN 3.1 g/dL (3.4-5.0); ALKALINE PHOSPHATASE 81 Units/L (46-116); ASPARTATE AMINO TRANSFERASE 24 Units/L (15-37); BLOOD UREA NITROGEN 16 mg/dL (7-18); CALCIUM 9.5 mg/dL (8.5-10.1); CARBON DIOXIDE 29.3 mmol/L (21-32); CHLORIDE 101 mmol/L (98-107); COR CA(FOR HYPOALB) 10.2 mg/dL (8.5-10.1); COR NA(FOR HYPERGLY) 143 mmol/L (136-145); CREATININE 0.97 mg/dL (0.55-1.02); DIGOXIN 0.64 ng/mL (0.9-2); SODIUM 139 mmol/L (136-145); TOTAL PROTEIN 7.3 g/dL (6.4-8.2); eGFR BLACK RACES > 60 (>60); eGFR NON BLACK RACES 60 (>60)
--- NOTE | 2017-06-12 07:20 | RAD ---
HISTORY: Cough, shortness of breath Study: Chest AP portable Comparison: 06/11/2017 Findings: There is a pacemaker present on the left. The heart is within normal limits in size. Bilateral hilar enlargement is again identified consistent with the patient's known adenopathy. No change identified in the right lower lobe lung mass likely representing primary lung malignancy. The remainder of the l del[place] horan appear clear. No pleural effusions are identified. The bony thorax is unremarkable. IMPRESSION: No significant change from the prior examination Reported By:
[2017-06-12] MEDS: PULMICORT NEB TX 0.5 MG NEB SCH ×2 (09:24→20:21)
[2017-06-12] MEDS: MUCOMYST (RESPIRATORY USE ONLY) NEB SCH ×2 (09:25→20:22)
[2017-06-12] MEDS: PROTONIX TAB 40 MG PO SCH (09:37)
[2017-06-12] MEDS: ZyrTEC TAB 10 MG PO SCH (09:37)
[2017-06-12] MEDS: PAXIL PO SCH (09:37)
[2017-06-12] MEDS: GLUCOPHAGE XR PO SCH ×2 (09:37→21:19)
[2017-06-12] MEDS: NAPROSYN PO SCH ×2 (09:37→21:19)
[2017-06-12] MEDS: ALDACTONE TAB 25 MG PO SCH (09:37)
[2017-06-12] MEDS: COREG TAB 12.5 MG PO SCH ×2 (09:37→21:18)
[2017-06-12] MEDS: LASIX PO SCH (09:38)
[2017-06-12] MEDS: LANOXIN PO SCH (09:38)
[2017-06-12] MEDS: ROBITUSSIN DM PO SCH ×4 (09:41→21:19)
[2017-06-12] MEDS: FLONASE NASAL SPRAY ENOSTRIL SCH (09:41)
[2017-06-12] MEDS: METHYLSULFONYLMETHANE 1000 MG PO SCH (09:43)
[2017-06-12] MEDS: MUCINEX DM PO SCH ×2 (10:41→21:18)
[2017-06-12] MEDS ORDERED: LASIX IVP ONE (11:44)
[2017-06-12] MEDS ORDERED: MUCOMYST 20% 200 MG/ML ONE (17:22)
[2017-06-12] MEDS: SINGULAIR TAB 10 MG PO SCH (21:18)
[2017-06-12] MEDS: TUSSIONEX PENNKINETIC SUSP PO PRN (21:18)
[2017-06-12] MEDS: SNACK - Diabetic Appropriate PO SCH (21:19)
[2017-06-12] MEDS: TESSALON PERLES PO PRN (21:19)
[2017-06-12] MEDS: ZESTRIL TAB 10 MG PO SCH (21:19)
[2017-06-13] MEDS: DUONEB 0.5 MG/3 MG NEB SCH ×6 (01:05→21:15)
[2017-06-13] MEDS: NS 1/2 1000 ML IV 1,000 ML IV SCH (01:44)
[2017-06-13] MEDS: FORTAZ or TAZICEF INJ 2 GM in NS 100 ML IV + SPIKE MINIBAG* 100 ML IV SCH ×3 (05:58→21:09)
[2017-06-13] MEDS: SOLU-Medrol 40 MG VIAL IVP SCH ×3 (05:59→21:09)
[2017-06-13] MEDS: NEURONTIN CAP 300 MG PO SCH ×3 (05:59→21:07)
[2017-06-13 06:08] LABS: BASOPHILS # (AUTO) 0.1 X10^3/uL (0.0-0.1); BASOPHILS % (AUTO) 0.3 % (0.2-1.0); HEMATOCRIT 26.2 % (36.0-47.0); HEMOGLOBIN 8.4 g/dL (12.0-16.0); LYMPHOCYTES # (AUTO) 2.7 X10^3/uL (1.3-2.9); LYMPHOCYTES % (AUTO) 10.3 % (21.0-51.0); MEAN CORPUSCULAR HEMOGLOBIN 25.5 pg (27.0-34.0); MEAN CORPUSCULAR VOLUME 79.5 fL (80.0-100.0); MEAN PLATELET VOLUME 9.2 fL (7.4-11.0); MONOCYTES # (AUTO) 0.7 x10^3/uL (0.3-0.8); MONOCYTES % (AUTO) 2.8 % (0.0-13.0); NEUTROPHILS # (AUTO) 22.7 x10^3/uL (2.2-4.8); NEUTROPHILS % (AUTO) 86.6 % (42.0-75.0); PLATELET COUNT 405 X10^3/uL (150.0-450.0); RED BLOOD COUNT 3.29 X10^6/uL (3.5-5.4); RED CELL DISTRIBUTION WIDTH 15.5 % (11.6-16.5)
[2017-06-13 06:40] LABS: ALANINE AMINOTRANSFERASE 26 Units/L (12-78); ALBUMIN 2.8 g/dL (3.4-5.0); ALKALINE PHOSPHATASE 76 Units/L (46-116); ASPARTATE AMINO TRANSFERASE 20 Units/L (15-37); BLOOD UREA NITROGEN 24 mg/dL (7-18); CALCIUM 9.5 mg/dL (8.5-10.1); CARBON DIOXIDE 26.7 mmol/L (21-32); CHLORIDE 100 mmol/L (98-107); COR CA(FOR HYPOALB) 10.5 mg/dL (8.5-10.1); COR NA(FOR HYPERGLY) 143 mmol/L (136-145); CREATININE 0.95 mg/dL (0.55-1.02); SODIUM 140 mmol/L (136-145); TOTAL PROTEIN 7.2 g/dL (6.4-8.2); eGFR BLACK RACES > 60 (>60); eGFR NON BLACK RACES > 60 (>60)
[2017-06-13 06:47] LABS: WHITE BLOOD COUNT 28.6 X10^3/uL (3.6-10.0)
[2017-06-13 06:48] LABS: BAND NEUTROPHILS % 3 % (0-10); PLATELET MORPHOLOGY COMMENT NORMAL (NORMAL)
[2017-06-13] MEDS: LASIX PO SCH (08:52)
[2017-06-13] MEDS: LANOXIN PO SCH (08:53)
[2017-06-13] MEDS: ZyrTEC TAB 10 MG PO SCH (08:53)
[2017-06-13] MEDS: COREG TAB 12.5 MG PO SCH ×2 (08:53→21:07)
[2017-06-13] MEDS: NAPROSYN PO SCH ×2 (08:53→21:08)
[2017-06-13] MEDS: GLUCOPHAGE XR PO SCH ×2 (08:53→21:08)
[2017-06-13] MEDS: MUCINEX DM PO SCH ×2 (08:53→21:07)
[2017-06-13] MEDS: PAXIL PO SCH (08:53)
[2017-06-13] MEDS: ALDACTONE TAB 25 MG PO SCH (08:53)
[2017-06-13] MEDS: PROTONIX TAB 40 MG PO SCH (08:53)
[2017-06-13] MEDS: FLONASE NASAL SPRAY ENOSTRIL SCH (08:57)
[2017-06-13] MEDS: ROBITUSSIN DM PO SCH ×2 (08:57→17:56)
[2017-06-13] MEDS: TESSALON PERLES PO PRN ×2 (08:59→21:20)
[2017-06-13] MEDS: TUSSIONEX PENNKINETIC SUSP PO PRN ×2 (08:59→21:20)
[2017-06-13] MEDS: MUCOMYST (RESPIRATORY USE ONLY) NEB SCH ×2 (09:29→21:16)
[2017-06-13] MEDS: PULMICORT NEB TX 0.5 MG NEB SCH ×2 (09:29→21:16)
[2017-06-13] MEDS: SINGULAIR TAB 10 MG PO SCH (21:08)
[2017-06-13] MEDS: HumuLIN R SUBCUT PRN (21:38)
[2017-06-13] MEDS: ZESTRIL TAB 10 MG PO SCH (21:40)
[2017-06-14] MEDS: SNACK - Diabetic Appropriate PO SCH (00:35)
[2017-06-14] MEDS: ROBITUSSIN DM PO SCH ×3 (00:41→15:11)
[2017-06-14] MEDS: DUONEB 0.5 MG/3 MG NEB SCH ×4 (01:37→12:07)
[2017-06-14] MEDS: NS 1/2 1000 ML IV 1,000 ML IV SCH (04:49)
[2017-06-14 05:37] LABS: ALANINE AMINOTRANSFERASE 22 Units/L (12-78); ALBUMIN 2.7 g/dL (3.4-5.0); ALKALINE PHOSPHATASE 74 Units/L (46-116); ASPARTATE AMINO TRANSFERASE 16 Units/L (15-37); BLOOD UREA NITROGEN 29 mg/dL (7-18); CARBON DIOXIDE 28.8 mmol/L (21-32); CHLORIDE 102 mmol/L (98-107); COR NA(FOR HYPERGLY) 145 mmol/L (136-145); SODIUM 141 mmol/L (136-145); TOTAL PROTEIN 6.6 g/dL (6.4-8.2); eGFR BLACK RACES > 60 (>60); eGFR NON BLACK RACES 58 (>60)
[2017-06-14 05:47] LABS: BASOPHILS % (AUTO) 0.1 % (0.2-1.0); HEMOGLOBIN 8.4 g/dL (12.0-16.0); LYMPHOCYTES # (AUTO) 2.3 X10^3/uL (1.3-2.9); LYMPHOCYTES % (AUTO) 10.5 % (21.0-51.0); MEAN CORPUSCULAR HGB CONC 32.3 g/dL (33.0-35.0); MEAN CORPUSCULAR VOLUME 80.6 fL (80.0-100.0); MEAN PLATELET VOLUME 8.9 fL (7.4-11.0); MONOCYTES # (AUTO) 0.6 x10^3/uL (0.3-0.8); MONOCYTES % (AUTO) 2.8 % (0.0-13.0); NEUTROPHILS # (AUTO) 18.6 x10^3/uL (2.2-4.8); NEUTROPHILS % (AUTO) 86.6 % (42.0-75.0); PLATELET COUNT 394 X10^3/uL (150.0-450.0); RED BLOOD COUNT 3.22 X10^6/uL (3.5-5.4); RED CELL DISTRIBUTION WIDTH 15.3 % (11.6-16.5); WHITE BLOOD COUNT 21.5 X10^3/uL (3.6-10.0)
[2017-06-14] MEDS: FORTAZ or TAZICEF INJ 2 GM in NS 100 ML IV + SPIKE MINIBAG* 100 ML IV SCH ×2 (05:52→15:11)
[2017-06-14] MEDS: NEURONTIN CAP 300 MG PO SCH ×2 (05:53→15:12)
[2017-06-14] MEDS: SOLU-Medrol 40 MG VIAL IVP SCH (05:53)
[2017-06-14] MEDS: HumuLIN R SUBCUT PRN (05:53)
[2017-06-14 06:27] LABS: BAND NEUTROPHILS % 3 % (0-10)
[2017-06-14 06:28] LABS: PLATELET MORPHOLOGY COMMENT NORMAL (NORMAL)
[2017-06-14] MEDS: MUCINEX DM PO SCH (08:57)
[2017-06-14] MEDS: ZyrTEC TAB 10 MG PO SCH (08:58)
[2017-06-14] MEDS: PAXIL PO SCH (08:58)
[2017-06-14] MEDS: LANOXIN PO SCH (08:58)
[2017-06-14] MEDS: COREG TAB 12.5 MG PO SCH (08:58)
[2017-06-14] MEDS: TESSALON PERLES PO PRN (08:58)
[2017-06-14] MEDS: PROTONIX TAB 40 MG PO SCH (08:59)
[2017-06-14] MEDS: ALDACTONE TAB 25 MG PO SCH (08:59)
[2017-06-14] MEDS: TUSSIONEX PENNKINETIC SUSP PO PRN (08:59)
[2017-06-14] MEDS: NAPROSYN PO SCH (08:59)
[2017-06-14] MEDS: FLONASE NASAL SPRAY ENOSTRIL SCH (08:59)
[2017-06-14] MEDS: LASIX PO SCH (08:59)
[2017-06-14] MEDS: GLUCOPHAGE XR PO SCH (08:59)
[2017-06-14] MEDS: PULMICORT NEB TX 0.5 MG NEB SCH (09:41)
[2017-06-14] MEDS: MUCOMYST (RESPIRATORY USE ONLY) NEB SCH (09:41)
--- NOTE | 2017-06-14 15:57 | RAD ---
Examination: Chest, PA and lateral views History: SOB, abnormal chest CT Comparison reference: 06/12/2017 Findings: Continued normal heart size with stable position of multi chamber AICD. Prominent mediastin um and hilar structures consistent with recently documented adenopathy. 4.0 cm soft tissue mass right lower lung. Additional reticular-nodular densities throughout the lungs. No bone destruction or larg e pleural effusion. Impression: Findings in the lungs, hilar structures and mediastinum consistent with neoplasm and meta static adenopathy. There is no significant change in radiographic findings since 2 days prior. Reported By:
[2017-06-14 16:25] VITALS: BP 189/86
--- NOTE | 2017-06-14 16:36 | CT ---
HISTORY: Metastatic disease evaluation Study: CT abdomen and pelvis with contrast Comparison: Chest CT 06/08/2017 Technique: Multiple axial images of the abdomen and pelvis were obtained with IV contrast. Oral contrast was ad ministered. Dose reduction techniques including Automated Exposure Control (AEC) and adjustment of mA and kV were utilized. Findings: There is partially visualized mediastinal adenopathy and right lung mass measuring at least 2.7 cm. Multiple hypodense, heterogeneously enhancing liver lesions are seen, the largest measuring 2.8 cm co mpatible with metastatic disease. The gallbladder is not visualized. The pancreas, spleen, kidneys, a nd adrenal glands are unremarkable. There is a small splenule noted in the left upper quadrant. No free intraperitoneal air. No evidence of intestinal obstruction or inflammation. There is mild to moderate constipation. No free fluid is identified. Oral contrast reaches the hepatic flexure. The ap pendix is not seen. Multilevel degenerative changes of the lumbosacral spine are noted. Scattered plaque is seen in the a nd branch vessels without aneurysm. No pathologically enlarged lymph nodes are identified. The urinar y bladder is unremarkable. IMPRESSION: 1. Multiple liver lesions compatible with metastatic disease. 2. Partially visualized mediastinal adenopathy and right lung mass as seen on recent chest CT. Reported By:
--- NOTE | 2017-06-17 14:43 | PCM.PROG ---
Progress Note - Subjective Subjective: WAS A DIRECT ADMISSION FROM THE OFFICE FOR PNEUMONIA. A CT REVEALED LUNG CANCER WITH METASTASIS. TODAY, PATIENT IS ALERT AND ORIENTED, LYING IN BED ON MORNING ROUNDS. SHE CONTINUES WITH COMPLAINTS OF SHORTNESS OF BREATH, COUGH, AND CONGESTION. PATIENT REPORTS THAT SHORNTESS OF BREATH HAS SLIGHTLY IMPROVED SINCE YESTERDAY. ON EXAMINATION, LUNGS CONTINUE WITH RHONCHI BILATERALLY TO AUSCULTATION. LUNG SOUNDS ARE DIMINISHED. ABDOMEN IS ROUND, SOFT , AND NON-TENDER WITH NORMAL BOWEL SOUNDS NOTED IN ALL QUADRANTS. SHE CONTINUES WITH EDEMA TO BILATERAL LOWER EXTREMITIES. SHE IS CURRENTLY UTILIZING OXYGEN VIA NASAL CANNUAL AT 2L/MIN. HER VITALS THIS MORNING ARE 97.5-82-22-94%-164/70. ABNORMAL LAB VALUES INCLUDE THE FOLLOWING: WBC 18.1, RBC 3.29, HGB 8.2, HCT 25.1 , GLUCOSE 281, ALBUMIN 3.1, DIGOXIN 0.64. BLOOD CULTURES CONTINUE TO REPORT NO GROWTH. A CHEST XRAY WAS OBTAINED AND REPORTS NO SIGNIFICANT CHANGE FROM PRIOR EXAMINATION. PATIENT REPORTS USING , PRESCHOOL PROGRAM DIRECTOR. WE RECOMMEND THAT SHE FOLLOWS UP WITH HIM AFTER DISCHARGE. TODAY, WE PLAN TO START MUCINEX 1200MG PO BID, MUCOMYST BID TO NEB TX, AND UTILIZE THE SMART VEST. OTHERWISE, WE PLAN TO FOLLOW UP WITH AM LABS AND CHEST XRAY AND CONTINUE TO MONITOR PATIENT. - Past Medical Family Social History Past Med/Fam/Surg Hx: No changes since H&P Allergies: Allergies No Known Drug Allergies Allergy (Verified 02/04/17 16:51) - Review of Systems ROS: No change since H&P - Vital Signs and I&O's Vital Signs: Temperature 98.5 F Pulse Rate [Right Brachial] 83 Pulse Rate [Left Brachial] 84 Pulse Rate 73 Respiratory Rate 20 Blood Pressure [Left Arm] 189/86 Blood Pressure [Right Arm] 164/70 Blood Pressure 158/82 O2 Sat by Pulse Oximetry 95 Intake and Output: Intake & Output 06/15/17 06/16/17 06/17/17 06/18/17 11:59 11:59 11:59 11:59 Intake Total 820 Balance 820 - Physical Exam Oriented: Normal Eyes: Normal Ear: Normal Nose: Other (NASAL CONGESTION ) Throat: Normal Respiratory: Right, Left, Generalized, Diminished, Rhonchi Cardiovascular: Normal : Normal Auscultation: Bowel Sounds: Normal Palpation: Normal Tenderness: Normal Skin: Normal Musculoskeletal: Normal Psychiatric: Normal Mood Description: Calm Affect: Normal Speech Pattern: Clear, Appropriate - Laboratory and Diagnostics Result Diagrams: 06/14/17 04:00 06/14/17 04:00 Labs: 06/07/17 13:29 Blood Blood Culture - Final 06/07/17 13:18 Blood Blood Culture - Final 06/07/17 13:43 Sputum - Expectorated Sputum Sputum Culture - Final Pseudomonas Aeruginosa 06/07/17 13:43 Sputum - Expectorated Sputum - Final Laboratory WBC 21.5 X10^3/uL (3.6-10.0) H 06/14/17 04:00 RBC 3.22 X10^6/uL (3.5-5.4) L 06/14/17 04:00 Hgb 8.4 g/dL (12.0-16.0) L 06/14/17 04:00 Hct 26.0 % (36.0-47.0) L 06/14/17 04:00 MCV 80.6 fL (80.0-100.0) 06/14/17 04:00 MCH 26.0 pg (27.0-34.0) L 06/14/17 04:00 MCHC 32.3 g/dL (33.0-35.0) L 06/14/17 04:00 RDW 15.3 % (11.6-16.5) 06/14/17 04:00 Plt Count 394 X10^3/uL (150.0-450.0) 06/14/17 04:00 Plt Count Comment Adequate (ADEQUATE) 06/14/17 04:00 MPV 8.9 fL (7.4-11.0) 06/14/17 04:00 Neut % 86.6 % (42.0-75.0) H 06/14/17 04:00 Lymph % 10.5 % (21.0-51.0) L 06/14/17 04:00 [place] % 2.8 % (0.0-13.0) 06/14/17 04:00 Eos % 0.0 % (0.9-2.9) L 06/14/17 04:00 Baso % 0.1 % (0.2-1.0) L 06/14/17 04:00 Neut # 18.6 x10^3/uL (2.2-4.8) H 06/14/17 04:00 Lymph # 2.3 X10^3/uL (1.3-2.9) 06/14/17 04:00 [place]nn # 0.6 x10^3/uL (0.3-0.8) 06/14/17 04:00 Eos # 0.0 x10^3/uL (0.0-0.2) 06/14/17 04:00 Baso # 0.0 X10^3/uL (0.0-0.1) 06/14/17 04:00 Absolute Nucleated RBC 0.1 /100WBC 06/14/17 04:00 Total Counted 100 06/14/17 04:00 Neutrophils % (Manual) 82 % (39-76) H 06/14/17 04:00 Band Neutrophils % 3 % (0-10) 06/14/17 04:00 Lymphocytes % (Manual) 12 % (13-43) L 06/14/17 04:00 Monocytes % (Manual) 3 % (4-9) L 06/14/17 04:00 Plt Morphology Comment Normal (NORMAL) 06/14/17 04:00 RBC Morphology Normal (NORMAL) 06/14/17 04:00 Hypochromasia Slight A 06/11/17 05:02 Sodium 141 mmol/L (136-145) 06/14/17 04:00 Corrected Sodium 145 mmol/L (136-145) 06/14/17 04:00 Potassium 4.4 mmol/L (3.5-5.1) 06/14/17 04:00 Chloride 102 mmol/L (98-107) 06/14/17 04:00 Carbon Dioxide 28.8 mmol/L (21-32) 06/14/17 04:00 BUN 29 mg/dL (7-18) H 06/14/17 04:00 Creatinine 1.00 mg/dL (0.55-1.02) 06/14/17 04:00 Est GFR (MDRD) Af Amer > 60 (>60) 06/14/17 04:00 Est GFR (MDRD) Non-Af 58 (>60) L 06/14/17 04:00 Glucose 270 mg/dL (65-99) H 06/14/17 04:00 POC Glucose (mg/dL) 187 mg/dL (65-99) H 06/14/17 17:06 Calcium 9.0 mg/dL (8.5-10.1) 06/14/17 04:00 Corrected Calcium 10.0 mg/dL (8.5-10.1) 06/14/17 04:00 Total Bilirubin 0.10 mg/dL (0.2-1.0) L 06/14/17 04:00 AST 16 Units/L (15-37) 06/14/17 04:00 ALT 22 Units/L (12-78) 06/14/17 04:00 Alkaline Phosphatase 74 Units/L (46-116) 06/14/17 04:00 Total Protein 6.6 g/dL (6.4-8.2) 06/14/17 04:00 Albumin 2.7 g/dL (3.4-5.0) L 06/14/17 04:00 Globulin 3.9 g/dL (2.5-4.5) 06/14/17 04:00 Albumin/Globulin Ratio 0.7 Ratio (1.1-2.1) L 06/14/17 04:00 Digoxin 0.60 ng/mL (0.9-2) L 06/13/17 04:44 - Plan (1) Pneumonia Status: Acute Qualifiers: Pneumonia type: due to Pseudomonas Laterality: right Lung location: lower lobe of lung Qualified Code(s): J15.1 - Pneumonia due to Pseudomonas Plan: CONTINUE PNEUMONIA PROTOCOL, CONTINUE FORTAZ 1GM IV Q8H, CONTINUE DUONEBS , START MUCINEX 1200MG PO BID, START MUCOMYST IN NEB [place] BID, SMART VEST, CONTINUE TO MONITOR LABS AND CHEST XRAY (2) Lung cancer, primary, with metastasis from lung to other site Status: Acute Qualifiers: Laterality: right Qualified Code(s): C34.91 - Malignant neoplasm of unspecified part of right bronchus or lung Plan: FOLLOW UP WITH , PRESCHOOL PROGRAM DIRECTOR FOR FURTHER WORK-UP AFTER DISCHARGE.
== END 2017-06-14 17:25 | disposition home health service (06) | DRG 178 ==
LOC: UNDOADMIN 11:19 → MED/SURG 11:19
PROVIDERS: ADMIT Internal Medicine; ATTEND Internal Medicine
DX: J15.1 Pneumonia due to Pseudomonas (principal); J44.1 Chronic obstructive pulmonary disease with (acute) exacerbation; C34.91 Malignant neoplasm of unspecified part of right bronchus or lung; C78.7 Secondary malignant neoplasm of liver and intrahepatic bile duct; R06.02 Shortness of breath; I50.9 Heart failure, unspecified; F41.1 Generalized anxiety disorder; E11.65 Type 2 diabetes mellitus with hyperglycemia
CPT/HCPCS: 36415; 71010; 71020; 71260; 74177; 80053; 80162; 85025; 87040; 87070; 87077; 87186; 87205; 94640; 94669; 94760; 99231; A4222; J0713; J0744; J1815; J1940; J2543; J2920; J7506; J7608; J7620; J7626

== ENCOUNTER 2017-07-06 10:01 | Emergency (ER) | payer OTHER, MEDICARE ==
[2017-07-06 10:21] VITALS: BMI 26.2
--- NOTE | 2017-07-06 10:49 | DR.GENAD ---
HPI - PCP Primary Care Physician: LIU - Complaint/Symptoms Chief Complaint Doctors Comments: Patient presents with complaint that she just does not feel well. She denies fever, vomiting or diarrhea. She has been diagnosed with lung cancer, recently had biopsy under going work up prior to definitive therapy. She had her influenza shot. She has COPD oxygen of 4L. She was discharged from hospital ([facility]) 06/12/17 s/p five day treatment of pneumonia, COD exacerbation. Chief Complaint:: "I GOT DISCHARGED THE May AND NOW JUST FEEL WEAK , LIKE I CAN'T SWALLOW, SHORT OF BREATH, AND I CAN'T EAT." - Source History Provided: Patient - Mode of Arrival Mode of Arrival: EMS - Timing Onset of Chief Complaint: 06/14/17 PMH - PMH Past Medical History: Yes Past Medical History: Anxiety, CHF, COPD, Diabetes, Dyslipidemia, GERD, Hypertension Past Surgical History: Yes Surgical History: Appendectomy, Cholecystectomy, Hysterectomy, Tonsillectomy Past Surgical History Comment: SINUS SURGERY, DEFIB., PACEMAKER - Family History History of Family Medical Conditions: Yes Family Medical History: Diabetes Mellitus, DC, Sudden Cardiac , Hypertension - Social History Does patient currently use any type of tobacco product: No Have you used tobacco products in the last 12 months: No Type of Tobacco Use: None How many years tobacco product used: 40 Alcohol Use: None Do you use any recreational Drugs:: No Lives With: Spouse Lives Where: Home - infectious screening In the last 2 months have you had wt loss of >10#?: NO Have you had fever, night sweats or hemotysis?: No Have you traveled outside the country in the last 6 months?: No Isolation: Standard ROS - Review of Systems Eyes: No Symptoms Reported ENTM: No Symptoms Reported Respiratoy: No Symptoms Reported, Non-Productive Cough (for several months) Cardiovascular: No Symptoms Reported Gastrointestinal/Abdominal: No Symptoms Reported Genitourinary: No Symptoms Reported Neurological: No Symptoms Reported Musculoskeletal: No Symptoms Reported Integumentary: No Symptoms Reported Hematologic/Lymphatic: No Symptoms Reported Endocrine: No Symptoms Reported Psychiatric: No Symptoms Reported All Other Systems: Reviewed and Negative PE - Vital Signs Vitals: Temperature 98.1 F Pulse Rate 117 Respiratory Rate 22 Blood Pressure [Left Arm] 189/86 Blood Pressure [Right Arm] 164/70 Blood Pressure 175/79 O2 Sat by Pulse Oximetry 99 - General Limitations: No Limitations General Appearance: Alert, In No Apparent Distress - Head Head Exam: Normal Inspection, Atraumatic - Eyes Eye exam: Normal Appearance, PERRL, EOMI - ENT ENT Exam: Normal Exam, Normal Oropharynx External Ear Exam: Normal External Inspection TM/Canal Exam: Bilateral Normal Nose Exam: Normal Nose Exam Mouth Exam: Normal Inspection Throat Exam: Normal Inspection - Neck Neck Exam: Normal Inspection, Full ROM - Chest Chest Inspection: Normal Inspection - Respiratory Respiratory Exam: Normal Lung Sounds Bilat Respiratory Exam: Bilateral Clear to Auscultation - Cardiovascular Cardiovascular Exam: Regular Rate, Normal Rhythm - Abdominal Exam Abdominal Exam: Normal Inspection, Normal Bowel Sounds Abdominal Tenderness: negative: RUQ, RLQ, LUQ, LLQ, Epigastrium, Suprapubic, Diffuse, Mild, Moderate, Severe, Other - Extremities Extremities Exam: Normal Inspection, Full ROM - Back Back Exam: Normal Inspection, Full ROM - Neurologic Neurological Exam: Alert, Oriented X3, CN II-XII Intact - Psychiatric Psychiatric Exam: Normal Affect, Normal Mood - Skin Skin Exam: Warm, Dry, Intact Course - Reevaluation 1st: Unchanged - Education/Counseling Education/Counseling: Patient, Family Educated On: Treatment, Diagnosis, Prognosis, Needs for Follow Up ROR - Labs Reviewed Result Diagrams: 07/06/17 10:35 07/06/17 10:35 Laboratory: WBC 13.6 X10^3/uL (3.6-10.0) H 07/06/17 10:35 RBC 3.86 X10^6/uL (3.5-5.4) 07/06/17 10:35 Hgb 9.8 g/dL (12.0-16.0) L 07/06/17 10:35 Hct 30.1 % (36.0-47.0) L 07/06/17 10:35 MCV 78.0 fL (80.0-100.0) L 07/06/17 10:35 MCH 25.5 pg (27.0-34.0) L 07/06/17 10:35 MCHC 32.7 g/dL (33.0-35.0) L 07/06/17 10:35 RDW 16.4 % (11.6-16.5) 07/06/17 10:35 Plt Count 418 X10^3/uL (150.0-450.0) 07/06/17 10:35 Plt Count Comment Adequate (ADEQUATE) 07/06/17 10:35 MPV 8.2 fL (7.4-11.0) 07/06/17 10:35 Neut % 72.4 % (42.0-75.0) 07/06/17 10:35 Lymph % 17.7 % (21.0-51.0) L 07/06/17 10:35 [place]vin % 6.8 % (0.0-13.0) 07/06/17 10:35 Eos % 2.1 % (0.9-2.9) 07/06/17 10:35 Baso % 1.0 % (0.2-1.0) 07/06/17 10:35 Neut # 9.8 x10^3/uL (2.2-4.8) H 07/06/17 10:35 Lymph # 2.4 X10^3/uL (1.3-2.9) 07/06/17 10:35 [place]vin # 0.9 x10^3/uL (0.3-0.8) H 07/06/17 10:35 Eos # 0.3 x10^3/uL (0.0-0.2) H 07/06/17 10:35 Baso # 0.1 X10^3/uL (0.0-0.1) 07/06/17 10:35 Absolute Nucleated RBC 0.0 /100WBC 07/06/17 10:35 Plt Morphology Comment Normal (NORMAL) 07/06/17 10:35 RBC Morphology Abnormal (NORMAL) A 07/06/17 10:35 Hypochromasia Slight A 07/06/17 10:35 Microcytosis Slight A 07/06/17 10:35 Sodium 135 mmol/L (136-145) L 07/06/17 10:35 Corrected Sodium 136 mmol/L (136-145) 07/06/17 10:35 Potassium 4.5 mmol/L (3.5-5.1) 07/06/17 10:35 Chloride 94 mmol/L (98-107) L 07/06/17 10:35 Carbon Dioxide 28.4 mmol/L (21-32) 07/06/17 10:35 BUN 11 mg/dL (7-18) 07/06/17 10:35 Creatinine 1.13 mg/dL (0.55-1.02) H 07/06/17 10:35 Est GFR (MDRD) Af Amer > 60 (>60) 07/06/17 10:35 Est GFR (MDRD) Non-Af 50 (>60) L 07/06/17 10:35 Glucose 152 mg/dL (65-99) H 07/06/17 10:35 Calcium 9.8 mg/dL (8.5-10.1) 07/06/17 10:35 Corrected Calcium 10.6 mg/dL (8.5-10.1) H 07/06/17 10:35 Total Bilirubin 0.20 mg/dL (0.2-1.0) 07/06/17 10:35 AST 46 Units/L (15-37) H 07/06/17 10:35 ALT 31 Units/L (12-78) 07/06/17 10:35 Alkaline Phosphatase 103 Units/L (46-116) 07/06/17 10:35 C-Reactive Protein 47.80 mg/L (0-3.0) H 07/06/17 10:35 Total Protein 8.2 g/dL (6.4-8.2) 07/06/17 10:35 Albumin 3.0 g/dL (3.4-5.0) L 07/06/17 10:35 Globulin 5.2 g/dL (2.5-4.5) H 07/06/17 10:35 Albumin/Globulin Ratio 0.6 Ratio (1.1-2.1) L 07/06/17 10:35 Influenza Type A (PCR) Negative (NEGATIVE) 07/06/17 10:37 Influenza Type B (PCR) Negative (NEGATIVE) 07/06/17 10:37 Streptococcus Screen Negative (NEGATIVE) 07/06/17 10:34 - XRAY XRAY Interpreted by: Radiologist (Chest: Continued normal heart size with stable position of pacemaker. Re demonstration of noncalcified soft tissue mass right lower lung. Dissuse pulmonary vascular congestion with suggestion of bilar/mediastinal adenopathy. Impression: Re demonstration of presumed neoplasm right lower lung with metastatic hilar/mediastinal adenopathy. Increasing pulmonary vascular congestion which may indicate early CHF. No localized pneumonia is demonstrated.) - Diagnosis Discharge Problem: Anxiety - Discharge Plan Condition: Stable - Follow ups/Referrals Follow ups/Referrals: Taiwo Murray [Primary Care Provider] - 3 days - Instructions
[2017-07-06 10:58] LABS: BASOPHILS # (AUTO) 0.1 X10^3/uL (0.0-0.1); EOSINOPHILS # (AUTO) 0.3 x10^3/uL (0.0-0.2); EOSINOPHILS % (AUTO) 2.1 % (0.9-2.9); HEMATOCRIT 30.1 % (36.0-47.0); HEMOGLOBIN 9.8 g/dL (12.0-16.0); LYMPHOCYTES # (AUTO) 2.4 X10^3/uL (1.3-2.9); LYMPHOCYTES % (AUTO) 17.7 % (21.0-51.0); MEAN CORPUSCULAR HEMOGLOBIN 25.5 pg (27.0-34.0); MEAN CORPUSCULAR HGB CONC 32.7 g/dL (33.0-35.0); MEAN PLATELET VOLUME 8.2 fL (7.4-11.0); MONOCYTES # (AUTO) 0.9 x10^3/uL (0.3-0.8); MONOCYTES % (AUTO) 6.8 % (0.0-13.0); NEUTROPHILS # (AUTO) 9.8 x10^3/uL (2.2-4.8); NEUTROPHILS % (AUTO) 72.4 % (42.0-75.0); PLATELET COUNT 418 X10^3/uL (150.0-450.0); RED BLOOD COUNT 3.86 X10^6/uL (3.5-5.4); RED CELL DISTRIBUTION WIDTH 16.4 % (11.6-16.5); WHITE BLOOD COUNT 13.6 X10^3/uL (3.6-10.0)
[2017-07-06 11:08] LABS: ALANINE AMINOTRANSFERASE 31 Units/L (12-78); ALKALINE PHOSPHATASE 103 Units/L (46-116); ASPARTATE AMINO TRANSFERASE 46 Units/L (15-37); BLOOD UREA NITROGEN 11 mg/dL (7-18); CALCIUM 9.8 mg/dL (8.5-10.1); CARBON DIOXIDE 28.4 mmol/L (21-32); CHLORIDE 94 mmol/L (98-107); COR CA(FOR HYPOALB) 10.6 mg/dL (8.5-10.1); COR NA(FOR HYPERGLY) 136 mmol/L (136-145); CREATININE 1.13 mg/dL (0.55-1.02); SODIUM 135 mmol/L (136-145); TOTAL PROTEIN 8.2 g/dL (6.4-8.2); eGFR BLACK RACES > 60 (>60); eGFR NON BLACK RACES 50 (>60)
[2017-07-06 11:20] LABS: PLATELET MORPHOLOGY COMMENT NORMAL (NORMAL)
[2017-07-06 11:21] LABS: HYPOCHROMASIA SLIGHT; MICROCYTOSIS SLIGHT
--- NOTE | 2017-07-06 11:45 | RAD ---
Examination: Portable AP chest History: Cough and congestion, history of lung CA Comparison reference 06/14/2017 Findings: Continued normal heart size with stable position of pacemaker. Re-demonstration of noncalci fied soft tissue mass right lower lung. Diffuse pulmonary vascular congestion with suggestion of tracy r/mediastinal adenopathy. Impression: Re-demonstration of presumed neoplasm right lower lung with metastatic hilar/mediastinal adenopathy. Increasing pulmonary vascular congestion which may indicate early CHF. No localized pneum onia is demonstrated. Reported By:
[2017-07-06 13:12] VITALS: BP 152/70
== END 2017-07-06 13:00 | disposition home or self-care (01) ==
LOC: ER 10:05
DX: I50.9 Heart failure, unspecified (principal); F41.8 Other specified anxiety disorders; D49.1 Neoplasm of unspecified behavior of respiratory system
CPT/HCPCS: 36415; 71010; 80053; 85025; 86140; 87070; 87502; 87880; 96365; 99283